=== PATIENT | female | born 1955 | race African-American/Black ===

== ENCOUNTER 2019-03-12 10:40 | Inpatient (IN) | payer MEDICARE, MEDICAID ==
[~2019-03-12] VITALS: Ht 157.5 cm; Wt 75.8 kg
[2019-03-12 11:24] LABS: BASO # 0.1 x10^3/uL (0.0-0.2); BASO % 1 % (0-3); EOS # 0.3 x10^3/uL (0.0-0.7); EOS % 5 % (0-3); HEMATOCRIT 37.9 % (36.0-47.0); HEMOGLOBIN 12.7 g/dL (12.0-15.5); LYMPH % 20 % (24-48); MEAN CORPUSCULAR HEMOGLOBIN 33 pg (25-35); MEAN CORPUSCULAR HGB CONC 34 g/dL (31-37); MEAN CORPUSCULAR VOLUME 97 fL (79-100); MONO # 0.4 x10^3/uL (0.0-1.1); MONO % 8 % (0-9); NEUT # 3.4 x10^3uL (1.8-7.7); NEUT % 66 % (31-73); PLATELET COUNT 137 x10^3/uL (140-400); RED BLOOD COUNT 3.91 x10^6/uL (3.50-5.40); RED CELL DISTRIBUTION WIDTH 14.8 % (11.5-14.5); WHITE BLOOD COUNT 5.2 x10^3/uL (4.0-11.0)
--- NOTE | 2019-03-12 11:26 | PHYS DOC ---
Adult General Chief Complaint Chief Complaint: PSYCH EVALUATION HPI HPI 63-year-old female presents for medical clearance for behavioral health admission. The patient was reported to have schizophrenia and bipolar. The patient was not being cooperative at her care facility. She was also having delusions and possibly hallucinations. She was moving around the facility with her physicians would not let anyone put anything away. She denies anything medical complaints to me. She denies pain, fever, or illness. Review of Systems Review of Systems Constitutional: Denies fever or chills [] Eyes: Denies change in visual acuity, redness, or eye pain [] HENT: Denies nasal congestion or sore throat [] Respiratory: Denies cough or shortness of breath [] Cardiovascular: No additional information not addressed in HPI [] GI: Denies abdominal pain, nausea, vomiting, bloody stools or diarrhea [] : Denies dysuria or hematuria [] Musculoskeletal: Denies back pain or joint pain [] Integument: Denies rash or skin lesions [] Neurologic: Denies headache, focal weakness or sensory changes [] Endocrine: Denies polyuria or polydipsia [] All other systems were reviewed and found to be within normal limits, except as documented in this note. Physical Exam Physical Exam Constitutional: Well developed, well nourished, no acute distress, non-toxic appearance. [] HENT: Normocephalic, atraumatic, bilateral external ears normal, oropharynx moist, no oral exudates, nose normal. [] Eyes: PERRLA, EOMI, conjunctiva normal, no discharge. [] Neck: Normal range of motion, no tenderness, supple, no stridor. [] Cardiovascular:Heart rate regular rhythm, no murmur [] Lungs & Thorax: Bilateral breath sounds clear to auscultation [] Abdomen: Bowel sounds normal, soft, no tenderness, no masses, no pulsatile masses. [] Skin: Warm, dry, no erythema, no rash. [] Back: No tenderness, no CVA tenderness. [] Extremities: No tenderness, no cyanosis, no clubbing, ROM intact, no edema. [] Neurologic: Alert and oriented X 3, normal motor function, normal sensory function, no focal deficits noted. [] Psychologic: Affect normal, mood normal. [] EKG EKG Sinus rhythm, rate 79, normal axis, no ST elevations or depressions.[] Radiology/Procedures Radiology/Procedures [] Course & Med Decision Making Course & Med Decision Making Pertinent Labs and Imaging studies reviewed. (See chart for details) The patient's labs are unremarkable. Her urinalysis is positive for leukocyte esterase, but there are also epithelials. I will not treat her for UTI. She is medically stable for behavioral health admission. [] Dragon Disclaimer Dragon Disclaimer This electronic medical record was generated, in whole or in part, using a voice recognition dictation system. Departure Departure: Impression: Primary Impression: Medical clearance for psychiatric admission Disposition: ADMITTED INPATIENT Condition: STABLE Referrals: KATHIE YOUNG (PCP) MIRIAN LUCIA DO March 12, 2019 11:26
[2019-03-12 11:35] LABS: ALBUMIN 3.3 g/dL (3.4-5.0); ALBUMIN/GLOBULIN RATIO 0.9 (1.0-1.7); CALCIUM 9.1 mg/dL (8.5-10.1); CREATININE 1.1 mg/dL (0.6-1.0); GFR 61.1; MAGNESIUM 1.8 mg/dL (1.8-2.4); POTASSIUM 3.8 mmol/L (3.5-5.1); TOTAL BILIRUBIN 0.4 mg/dL (0.2-1.0)
[2019-03-12 12:30] LABS: BILIRUBIN,URINE NEG (NEG); CLARITY,URINE CLEAR; COLOR,URINE YELLOW; GLUCOSE,URINE NEG (NEG)
[2019-03-12 12:31] LABS: BACTERIA,URINE FEW /HPF (0-FEW); HYALINE CASTS, URINE OCC /HPF; NITRITE,URINE NEG (NEG); RBC,URINE 0 /HPF (0-2); SQUAMOUS EPITHELIAL CELL,UR OCC /LPF; UROBILINOGEN,URINE 1 mg/dL (0.2 mg/dL)
--- NOTE | 2019-03-12 15:45 | EKG ---
[address] [address] Test Date: 2019-03-12 Test Time: 11:20:32 Pat Name: MAMADOU SAM Department: Room: Gender: F Media Sales Consultant: : [id number] Requested By: MIRIAN LUCIA Order Number: [id number] Reading MD: Measurements Intervals [place] Rate: 79 P: 38 GA: 172 QRS: 17 QRSD: 102 T: 38 QT: 406 QTc: 472 Interpretive Statements SINUS RHYTHM NORMAL ECG RI6.01 No previous ECG available for comparison
[2019-03-12 15:47] VITALS: BP 120/80
[2019-03-12] MEDS ORDERED: LACT10SO PO (16:05)
[2019-03-12] MEDS ORDERED: LAMO200T2 PO (16:05)
[2019-03-12] MEDS ORDERED: MIRA25TA PO (16:05)
[2019-03-12] MEDS ORDERED: RISP1TAB43 PO (16:05)
[2019-03-12] MEDS ORDERED: CLOZ100T7 PO (16:05)
[2019-03-12] MEDS ORDERED: TRAM50TA PO (16:05)
[2019-03-12] MEDS ORDERED: NAPR-677 PO (16:05)
[2019-03-12] MEDS ORDERED: ESCITALOPRAM OXA5 MG PO (16:05)
[2019-03-12] MEDS ORDERED: ACET325T9 PO (16:05)
[2019-03-12] MEDS ORDERED: MENT1ADH29 TP (16:05)
[2019-03-12] MEDS ORDERED: CHOL10003 PO (16:05)
[2019-03-12] MEDS ORDERED: [UNRECOGNIZED DRUG - CODE] TP (16:05)
[2019-03-12] MEDS ORDERED: MAGNESIUM HYDROXIDE 2,400 MG/30 ML ORAL.SUSP. PO PRN (16:15)
--- NOTE | 2019-03-12 18:35 | HP ---
ADMIT DATE: 03/12/2019 PSYCHIATRIC ADMISSION HISTORY/EVALUATION This note covers elements not covered in my initial note 03/12/2019. I met with the patient in the evening of 03/12/2019. IDENTIFYING DATA: The patient is a 63-year-old -English female referred to us from [facility] by Dr. Ryder Cooley, her primary care physician on account of unmanageable behaviors. Reportedly, she has been drinking multiple cups of fluids, has been hyperverbal, manic, aggressive, having mood swings, putting herself on the floor. She has been paranoid, thinks she is being stolen from and carries all her belongings with her. She has failed outpatient psychiatric interventions and referred for inpatient psychiatric stabilization. CHIEF COMPLAINT: "When can I go back." The patient is being admitted by the public red hat open stack administrator, who is her guardian. HISTORY OF PRESENT ILLNESS: The patient has a long history of schizoaffective disorder, bipolar type. She has been residing at the [facility]. I have followed her from a psychiatric standpoint. Over the last several days, she has been having increased agitation, psychosis, paranoia, mood swings and aggression as noted in addition to putting herself on the floor. No active suicidal or homicidal ideation. PAST PSYCHIATRIC HISTORY: As above. MEDICAL HISTORY: Positive for chronic kidney disease, anemia, GERD, chronic constipation, history of seizure disorder, hyperlipidemia, borderline personality disorder. DIET: Regular. CURRENT PSYCHOTROPICS: The patient is on Lamictal 200 mg daily for seizure disorder and for her schizoaffective disorder, clozapine 350 mg p.o. at bedtime and we will follow CBC, ANC weekly on this and she is on Lexapro 5 mg a day. FAMILY HISTORY: Noncontributory. SOCIAL HISTORY: No history of alcohol, drug abuse, physical, sexual or elder abuse. She is not known to be a perpetrator. REACTION TO HOSPITALIZATION: The patient accepting of it. ASSETS: Supportive living at the nursing homes, support from the public red hat open stack administrator. MENTAL STATUS EXAMINATION: The patient was seen individually evening of 03/12/2019. She readily recognized me by the first question was when she returned to the halfway. Speech is coherent, rapid at times. Abstraction fair, computation impaired, language function intact, attention span short. Mood and affect remain somewhat anxious, labile. She does appear paranoid, suspicious. LABORATORY DATA: Reviewed. IMPRESSION: Schizoaffective disorder, bipolar type, mixed with psychotic features; anxiety disorder, unspecified; impulse control disorder, unspecified; seizure disorder. Rest diagnoses as noted above. PLAN: Admit to geropsychiatry unit at [facility]. I will see the patient daily individually from a psychiatric standpoint. Continue the patient on her current psychotropics. Follow labs, CBC, ANC, and the clozapine. Consider Depakote as a mood stabilizer. We will make further decisions on psychotropics post baseline assessment. MAN Marek SHELL MD DR: JESSEE/umer JOB#: [id number] / [id number]
[2019-03-12] MEDS ORDERED: traMADol 50 MG TABLET PO PRN (20:45)
[2019-03-12] MEDS ORDERED: ACETAMINOPHEN 325 MG TABLET PO PRN (20:45)
[2019-03-12] MEDS: LACTULOSE 20 GM/30 ML SOLUTION. PO SCH (20:52)
[2019-03-12] MEDS ORDERED: METHYL SALICYLATE/MENTHOL TOPICAL OINTMENT 29GM TUBE. TP PRN (21:00)
[2019-03-12] MEDS ORDERED: MINERAL OIL/PETROLATUM TOPICAL CREAM 113GM JAR. TP PRN (21:00)
[2019-03-12] MEDS: cloZAPine 100 MG TABLET PO SCH (21:05)
[2019-03-12] MEDS: NAPROXEN 250 MG TABLET PO SCH (21:05)
[2019-03-12] MEDS: risperiDONE 1 MG TABLET. PO SCH (21:05)
--- NOTE | 2019-03-12 22:26 | PDOC ---
Exam Note: Sami Note: Please also refer to the separate dictated note~for this date of service dictated separately. Discussed the patient with Nursing staff reviewed the chart.~Reviewed interim history and current functioning. Reviewed vital signs,~Labs/ Radiology~and current medications noted below. Continue current treatment with the changes noted in the dictated addendum note Assessment: Vital Signs: Vital Signs Date Time Temp Pulse Resp B/P (MAP) Pulse Ox O2 Delivery O2 Flow Rate FiO2 03/12/19 15:47 97.7 97 20 120/80 (93) 98 Room Air Labs: Laboratory Tests Test 03/12/19 11:13 03/12/19 11:30 03/12/19 20:55 White Blood Count 5.2 x10^3/uL (4.0-11.0) Red Blood Count 3.91 x10^6/uL (3.50-5.40) Hemoglobin 12.7 g/dL (12.0-15.5) Hematocrit 37.9 % (36.0-47.0) Mean Corpuscular Volume 97 fL (79-100) Mean Corpuscular Hemoglobin 33 pg (25-35) Mean Corpuscular Hemoglobin Concent 34 g/dL (31-37) Red Cell Distribution Width 14.8 % (11.5-14.5) H Platelet Count 137 x10^3/uL (140-400) L Neutrophils (%) (Auto) 66 % (31-73) Lymphocytes (%) (Auto) 20 % (24-48) L Monocytes (%) (Auto) 8 % (0-9) Eosinophils (%) (Auto) 5 % (0-3) H Basophils (%) (Auto) 1 % (0-3) Neutrophils # (Auto) 3.4 x10^3uL (1.8-7.7) Lymphocytes # (Auto) 1.0 x10^3/uL (1.0-4.8) Monocytes # (Auto) 0.4 x10^3/uL (0.0-1.1) Eosinophils # (Auto) 0.3 x10^3/uL (0.0-0.7) Basophils # (Auto) 0.1 x10^3/uL (0.0-0.2) Sodium Level 141 mmol/L (136-145) Potassium Level 3.8 mmol/L (3.5-5.1) Chloride Level 106 mmol/L (98-107) Carbon Dioxide Level 26 mmol/L (21-32) Anion Gap 9 (6-14) Blood Urea Nitrogen 17 mg/dL (7-20) Creatinine 1.1 mg/dL (0.6-1.0) H Estimated GFR (Cockcroft-Gault) 61.1 BUN/Creatinine Ratio 15 (6-20) Glucose Level 118 mg/dL (70-99) H Calcium Level 9.1 mg/dL (8.5-10.1) Magnesium Level 1.8 mg/dL (1.8-2.4) Iron Level 72 ug/dL (50-170) Total Iron Binding Capacity 288 ug/dL (250-450) Iron Saturation 25 % (15-34) Total Bilirubin 0.4 mg/dL (0.2-1.0) Aspartate Amino Transferase (AST) 40 U/L (15-37) H Alanine Aminotransferase (ALT) 51 U/L (14-59) Alkaline Phosphatase 168 U/L (46-116) H Total Protein 7.0 g/dL (6.4-8.2) Albumin 3.3 g/dL (3.4-5.0) L Albumin/Globulin Ratio 0.9 (1.0-1.7) L Urine Collection Type Unknown Urine Color Yellow Urine Clarity Clear Urine pH 6.5 Urine Specific [place] 1.015 Urine Protein Neg (NEG-TRACE) Urine Glucose (UA) Neg mg/dL (NEG) Urine Ketones (Stick) Neg mg/dL (NEG) Urine Blood Neg (NEG) Urine Nitrite Neg (NEG) Urine Bilirubin Neg (NEG) Urine Urobilinogen Dipstick 1 mg/dL (0.2 mg/dL) Urine Leukocyte Esterase Trace (NEG) Urine RBC 0 /HPF (0-2) Urine WBC 1-4 /HPF (0-4) Urine Squamous Epithelial Cells Occ /LPF Urine Bacteria Few /HPF (0-FEW) Urine Hyaline Casts Occ /HPF Ammonia 25 mcmol/L (11-34) Current Medications: Meds: Current Medications Al Hydroxide/Mg Hydroxide (Mylanta Plus Xs) 15 ml PRN AFTMEALHC PRN PO DYSPEPSIA; Start 03/12/19 at 16:15 Magnesium Hydroxide (Milk Of Magnesia) 2,400 mg PRN QHS PRN PO CONSTIPATION; Start 03/12/19 at 16:15 Nicotine (Nicoderm Cq 21mg) 1 patch DAILY TD ; Start 03/13/19 at 09:00 Clozapine (Clozaril) 350 mg QHS PO Last administered on 03/12/19at 21:05; Start 03/12/19 at 21:00 Citalopram Hydrobromide (CeleXA) 10 mg DAILY PO ; Start 03/13/19 at 09:00 Risperidone (RisperDAL) 1 mg BID PO Last administered on 03/12/19at 21:05; Start 03/12/19 at 21:00 Acetaminophen (Tylenol) 650 mg PRN Q4HRS PRN PO PAIN / TEMP; Start 03/12/19 at 20:45 Vitamin D (Vitamin D3) 2,000 unit DAILY PO ; Start 03/13/19 at 09:00 Mirabegron (Myrbetriq) 25 mg DAILY PO ; Start 03/13/19 at 09:00 Tramadol HCl (Ultram) 50 mg PRN Q8HRS PRN PO PAIN; Start 03/12/19 at 20:45 Lactulose (Lactulose) 10 gm QID PO ; Start 03/12/19 at 21:00 Lamotrigine (LaMICtal) 200 mg DAILY PO ; Start 03/13/19 at 09:00 Multi-Ingredient Ointment (Analgesic [place]) 1 marcos PRN Q6HRS PRN TP MUSCLE PAIN; Start 03/12/19 at 21:00 Naproxen (Naprosyn) 250 mg BID PO Last administered on 03/12/19at 21:05; Start 03/12/19 at 21:00 Multi-Ingred Cream/Lotion/Oil/ Oint (Hydrocerin) 1 marcos PRN DAILY PRN TP DRYNESS OF NARES; Start 03/12/19 at 21:00 Active Scripts Active Reported Risperdal (Risperidone) 1 Mg Tablet 1 Mg PO BID Naproxen Sodium 550 Mg Tablet 220 Mg PO BID Clozapine 100 Mg Tablet 350 Mg PO QHS Escitalopram Oxalate 5 Mg Tablet 5 Mg PO DAILY Vitamin D3 (Cholecalciferol (Vitamin D3)) 1,000 Unit Tablet 2,000 Unit PO DAILY Lamotrigine 200 Mg Tablet 200 Mg PO DAILY Myrbetriq (Mirabegron) 25 Mg Tab.er.24h 25 Mg PO DAILY Lactulose 10 Gm/15 Ml Solution 10 Gm PO QID Petroleum Jelly Lip Treatment (Petrolatum,White) 9.9 Gm Jelly..g. 9.9 Gm TP PRN PRN [place] Ultra Strength (Menthol) 1 Each Adh..patch 1 Each TP Q6HRS Tramadol Hcl (Tramadol HCl) 50 Mg Tablet 50 Mg PO PRN Q8HRS PRN Tylenol (Acetaminophen) 325 Mg Tablet 650 Mg PO PRN Q4HRS PRN I have reviewed the current psychotropics carefully including drug interactions. Risk benefit ratio favors no change other than as noted in my dictated progress note. Diagnosis: Problems: (1) Medical clearance for psychiatric admission (2) Anxiety disorder (3) Impulse control disorder (4) Schizoaffective disorder, chronic condition with acute exacerbation (5) Psychosis, atypical MARIALUISA SHELL MD March 12, 2019 22:26
[2019-03-13 03:08] LABS: THYROXINE 8.7 ug/dL (4.5-12.0)
[2019-03-13 05:53] VITALS: BP 133/85
[2019-03-13] MEDS ORDERED: lamoTRIgine 100 MG TABLET. PO SCH (09:00)
[2019-03-13] MEDS: CITALOPRAM 10 MG TABLET. PO SCH (09:18)
[2019-03-13] MEDS: LACTULOSE 20 GM/30 ML SOLUTION. PO SCH ×4 (09:19→19:38)
[2019-03-13] MEDS: MIRABEGRON 25 MG TAB.ER.24H PO SCH (09:20)
[2019-03-13] MEDS: NAPROXEN 250 MG TABLET PO SCH ×2 (09:21→19:37)
[2019-03-13] MEDS: risperiDONE 1 MG TABLET. PO SCH ×2 (09:22→19:37)
[2019-03-13] MEDS: CHOLECALCIFEROL (VITAMIN D3) 1,000 UNIT TABLET PO SCH (09:23)
[2019-03-13] MEDS: NICOTINE 21MG PATCH. TD SCH (09:23)
[2019-03-13 10:57] LABS: THYROID STIM HORMONE (TSH) 5.065 uIU/mL (0.358-3.740)
[2019-03-13 12:07] LABS: HEMOGLOBIN A1C 5.6 % (4.8-5.6)
[2019-03-13 16:21] VITALS: BP 168/97
[2019-03-13] MEDS: cloZAPine 100 MG TABLET PO SCH (19:37)
--- NOTE | 2019-03-13 22:36 | PDOC ---
Exam Note: Sami Note: Please also refer to the separate dictated note~for this date of service dictated separately.~Patient seen individually. Discussed the patient with Nursing staff reviewed the chart.~Reviewed interim history and current functioning. Reviewed vital signs,~Labs/ Radiology~and current medications noted below. Continue current treatment with the changes noted in the dictated addendum note Assessment: Vital Signs: Vital Signs Date Time Temp Pulse Resp B/P (MAP) Pulse Ox O2 Delivery O2 Flow Rate FiO2 03/13/19 16:21 97.8 81 19 168/97 (120) 100 Room Air I&O Intake and Output 03/13/19 06:59 Intake Total 540 ml Balance 540 ml Intake Oral 540 ml Current Medications: Meds: Current Medications Al Hydroxide/Mg Hydroxide (Mylanta Plus Xs) 15 ml PRN AFTMEALHC PRN PO DYSPEPSIA; Start 03/12/19 at 16:15 Magnesium Hydroxide (Milk Of Magnesia) 2,400 mg PRN QHS PRN PO CONSTIPATION; Start 03/12/19 at 16:15 Nicotine (Nicoderm Cq 21mg) 1 patch DAILY TD Last administered on 03/13/19at 09:23; Start 03/13/19 at 09:00 Clozapine (Clozaril) 350 mg QHS PO Last administered on 03/13/19at 19:37; Start 03/12/19 at 21:00 Citalopram Hydrobromide (CeleXA) 10 mg DAILY PO Last administered on 03/13/19at 09:18; Start 03/13/19 at 09:00 Risperidone (RisperDAL) 1 mg BID PO Last administered on 03/13/19at 19:37; Start 03/12/19 at 21:00 Acetaminophen (Tylenol) 650 mg PRN Q4HRS PRN PO PAIN / TEMP; Start 03/12/19 at 20:45 Vitamin D (Vitamin D3) 2,000 unit DAILY PO Last administered on 03/13/19at 09:23; Start 03/13/19 at 09:00 Mirabegron (Myrbetriq) 25 mg DAILY PO Last administered on 03/13/19at 09:20; Start 03/13/19 at 09:00 Tramadol HCl (Ultram) 50 mg PRN Q8HRS PRN PO PAIN; Start 03/12/19 at 20:45 Lactulose (Lactulose) 10 gm QID PO Last administered on 03/13/19at 19:38; Start 03/12/19 at 21:00 Lamotrigine (LaMICtal) 200 mg DAILY PO Last administered on 03/13/19at 09:20; Start 03/13/19 at 09:00; Stop 03/13/19 at 17:33; Status DC Multi-Ingredient Ointment (Analgesic [place]) 1 marcos PRN Q6HRS PRN TP MUSCLE PAIN; Start 03/12/19 at 21:00 Naproxen (Naprosyn) 250 mg BID PO Last administered on 03/13/19at 19:37; Start 03/12/19 at 21:00 Multi-Ingred Cream/Lotion/Oil/ Oint (Hydrocerin) 1 marcos PRN DAILY PRN TP DRYNESS OF NARES; Start 03/12/19 at 21:00 Lamotrigine (LaMICtal) 250 mg DAILY PO ; Start 03/14/19 at 09:00 Active Scripts Active Reported Risperdal (Risperidone) 1 Mg Tablet 1 Mg PO BID Naproxen Sodium 550 Mg Tablet 220 Mg PO BID Clozapine 100 Mg Tablet 350 Mg PO QHS Escitalopram Oxalate 5 Mg Tablet 5 Mg PO DAILY Vitamin D3 (Cholecalciferol (Vitamin D3)) 1,000 Unit Tablet 2,000 Unit PO DAILY Lamotrigine 200 Mg Tablet 200 Mg PO DAILY Myrbetriq (Mirabegron) 25 Mg Tab.er.24h 25 Mg PO DAILY Lactulose 10 Gm/15 Ml Solution 10 Gm PO QID Petroleum Jelly Lip Treatment (Petrolatum,White) 9.9 Gm Jelly..g. 9.9 Gm TP PRN PRN [place] Ultra Strength (Menthol) 1 Each Adh..patch 1 Each TP Q6HRS Tramadol Hcl (Tramadol HCl) 50 Mg Tablet 50 Mg PO PRN Q8HRS PRN Tylenol (Acetaminophen) 325 Mg Tablet 650 Mg PO PRN Q4HRS PRN I have reviewed the current psychotropics carefully including drug interactions. Risk benefit ratio favors no change other than as noted in my dictated progress note. Diagnosis: Problems: (1) Anxiety disorder (2) Impulse control disorder (3) Schizoaffective disorder, chronic condition with acute exacerbation (4) Psychosis, atypical MARIALUISA SHELL MD March 13, 2019 22:36
[2019-03-14 05:58] VITALS: BP 146/98
--- NOTE | 2019-03-14 06:13 | CONS ---
DATE OF CONSULTATION: 03/13/2019 REASON FOR CONSULTATION: Medical management. HISTORY OF PRESENT ILLNESS: The patient is a 63-year-old -M[place] female patient, a resident at [facility], who apparently was transferred or referred [facility] on account of being verbally aggressive, manic with marked mood swings, putting herself on the floor, paranoid, thinks belongings are being stolen, drinking multiple cups of fluids, all this in a background of schizoaffective, bipolar type, mixed. PAST MEDICAL HISTORY: Medically, she has multiple medical problems including hypertension, anemia, chronic back pain, chronic kidney disease stage 3. She is also known to have seasonal allergic rhinitis, gastroesophageal reflux disease, constipation, and insomnia. PAST SURGICAL HISTORY: Unremarkable. ALLERGIES: She is allergic to THIORIDAZINE. MEDICATIONS: She is currently on following medications: She is on naproxen 220 mg twice a day, tramadol 50 mg every 8 hours, Tylenol 650 mg every 4 hours as needed, lamotrigine 200 mg daily, escitalopram oxalate 5 mg once a day, clozapine 350 mg p.o. at bedtime, risperidone 1 mg twice a day, lactulose 10 grams in 15 mL solution 4 times a day. She is on BenGay ultra strength applied topically every 6 hours to the right shoulder, Myrbetriq 25 mg daily for overactive bladder, cholecalciferol vitamin D3 2000 International Units once a day. She has beta-lactam applied topically to the dryness of the nares. FAMILY HISTORY: Noncontributory. SOCIAL HISTORY: She apparently is a resident at [facility]. She apparently is not known to drink alcohol or use drugs. PHYSICAL EXAMINATION: GENERAL: When I saw her this afternoon, she was laying almost flat in the bed, in no apparent respiratory distress. She appeared slightly pale, but no jaundice, cyanosis, or thyromegaly. No jugular venous distention. No limb edema. VITAL SIGNS: Her heart rate was 81, blood pressure was 168/97, temperature was 97.8, respiratory rate was 19, and oxygen saturation was 100% on room air. HEAD, EYES, EARS, NOSE, AND THROAT: Showed normocephalic, atraumatic. NECK: Supple. HEART: Showed normal first and second heart sounds. No gallop, rub or murmur. CHEST: Clear to auscultation. No crepitation or rhonchi. ABDOMEN: Distended, soft, nontender. NEUROLOGIC: When she saw us first, she sees double, which can be sometimes a side effect of one of the anti-seizure medications, although I do not think she is on Dilantin, which characteristically can cause that. However, all her cranial nerves were grossly intact. She moves extremities without difficulty. She did seem to have difficulty getting up from lying position to sit on the edge of the bed and also standing from the sitting position, although eventually she managed to stand and walk with a walker without difficulty. LABORATORY DATA: Her lab work showed a serum sodium of 141, potassium 3.8, chloride 106, bicarbonate 26, anion gap of 9, BUN 17, creatinine was 1.1, estimated GFR was 61 mL per minute. Her glucose was 118. Her calcium was 9.1. Magnesium was 1.8. Serum iron, TIBC and iron saturation were all low consistent with anemia of chronic disease. Her total bilirubin and ALT are normal. AST and alkaline phosphatase slightly elevated. Total protein was 7, albumin was 3.3. Her hemoglobin A1c was 5.6%. Her ammonia level was only 25 micromole per liter. Her triglycerides were 225. Total cholesterol 193, LDL cholesterol 186, VLDL was 24, and HDL cholesterol was 83 and the ratio was 2. Her 25-hydroxy vitamin D was 33.5, which was well within normal range. Her TSH was slightly elevated; however, her total T4 and total T3 were normal, indicating that she has compensated hypothyroidism. Her antithrombin 3 inhibitor antibody is nonreactive. Her urinalysis essentially unremarkable. It was negative for protein, glucose, ketones, blood, nitrite, and leukocyte esterase. IMPRESSION: In summary, this is a 63-year-old -M[place] female patient who was referred from [facility] by her primary care physician, Dr. Ryder Cooley on account of unmanageable behavior. Reportedly she has been drinking multiple cups of fluid, has been hyperverbal, manic, aggressive, having mood swings, putting herself on the floor. She apparently has been paranoid. She has failed outpatient psychiatric intervention and was referred for an inpatient psychiatric stabilization. Medically, she is known to have chronic kidney disease, anemia, gastroesophageal reflux disease, chronic constipation, history of seizures, hyperlipidemia. Her vital signs are all within acceptable range, although her blood pressure seems to be labile. All her lab works seem to be within acceptable range. My recommendation is to continue with all her current medications. I will follow all her labs that are still pending at the time of this dictation and make any necessary recommendations. Thank you Dr. Guo. AUSTYN JANE MD DR: CRISTINA/umer JOB#: [id number] / [id number]
[2019-03-14] MEDS: LACTULOSE 20 GM/30 ML SOLUTION. PO SCH ×4 (08:50→19:42)
[2019-03-14] MEDS: risperiDONE 1 MG TABLET. PO SCH ×2 (08:50→19:42)
[2019-03-14] MEDS: CITALOPRAM 10 MG TABLET. PO SCH (08:50)
[2019-03-14] MEDS: NAPROXEN 250 MG TABLET PO SCH ×2 (08:50→19:42)
[2019-03-14] MEDS: NICOTINE 21MG PATCH. TD SCH (08:51)
[2019-03-14] MEDS: CHOLECALCIFEROL (VITAMIN D3) 1,000 UNIT TABLET PO SCH (08:51)
[2019-03-14] MEDS: lamoTRIgine 100 MG TABLET. PO SCH (08:52)
[2019-03-14] MEDS: MIRABEGRON 25 MG TAB.ER.24H PO SCH (08:53)
[2019-03-14 16:54] VITALS: BP_SYST 101; BP_SYST 136; BP_DIAS 73; BP_DIAS 92
[2019-03-14] MEDS: cloZAPine 100 MG TABLET PO SCH (19:42)
--- NOTE | 2019-03-14 22:35 | PDOC ---
Exam Note: Sami Note: Please also refer to the separate dictated note~for this date of service dictated separately.~Patient seen individually. Discussed the patient with Nursing staff reviewed the chart.~Reviewed interim history and current functioning. Reviewed vital signs,~Labs/ Radiology~and current medications noted below. Continue current treatment with the changes noted in the dictated addendum note Assessment: Vital Signs: Vital Signs Date Time Temp Pulse Resp B/P (MAP) Pulse Ox O2 Delivery O2 Flow Rate FiO2 03/14/19 16:54 98.2 90 16 101/73 (82) 100 03/13/19 16:21 Room Air I&O Intake and Output 03/14/19 06:59 Intake Total 600 ml Balance 600 ml Intake Oral 600 ml Current Medications: Meds: Current Medications Al Hydroxide/Mg Hydroxide (Mylanta Plus Xs) 15 ml PRN AFTMEALHC PRN PO DYSPEP YANNICK; Start 03/12/19 at 16:15 Magnesium Hydroxide (Milk Of Magnesia) 2,400 mg PRN QHS PRN PO CONSTIPATION; Start 03/12/19 at 16:15 Nicotine (Nicoderm Cq 21mg) 1 patch DAILY TD Last administered on 03/14/19 08:51; Start 03/13/19 at 09:00 Clozapine (Clozaril) 350 mg QHS PO Last administered on 03/14/19 19:42; Start 03/12/19 at 21:00 Citalopram Hydrobromide (CeleXA) 10 mg DAILY PO Last administered on 03/14/19 08:50; Start 03/13/19 at 09:00 Risperidone (RisperDAL) 1 mg BID PO Last administered on 03/14/19 19:42; Start 03/12/19 at 21:00 Acetaminophen (Tylenol) 650 mg PRN Q4HRS PRN PO PAIN / TEMP; Start 03/12/19 at 20:45 Vitamin D (Vitamin D3) 2,000 unit DAILY PO Last administered on 03/14/19 08:51; Start 03/13/19 at 09:00 Mirabegron (Myrbetriq) 25 mg DAILY PO Last administered on 03/14/19 08:53; Start 03/13/19 at 09:00 Tramadol HCl (Ultram) 50 mg PRN Q8HRS PRN PO PAIN; Start 03/12/19 at 20:45 Lactulose (Lactulose) 10 gm QID PO Last administered on 03/14/19at 19:42; Start 03/12/19 at 21:00 Lamotrigine (LaMICtal) 200 mg DAILY PO Last administered on 03/13/19at 09:20; Start 03/13/19 at 09:00; Stop 03/13/19 at 17:33; Status DC Multi-Ingredient Ointment (Analgesic [place]) 1 marcos PRN Q6HRS PRN TP MUSCLE PAIN; Start 03/12/19 at 21:00 Naproxen (Naprosyn) 250 mg BID PO Last administered on 03/14/19at 19:42; Start 03/12/19 at 21:00 Multi-Ingred Cream/Lotion/Oil/ Oint (Hydrocerin) 1 marcos PRN DAILY PRN TP DRYNESS OF NARES; Start 03/12/19 at 21:00 Lamotrigine (LaMICtal) 250 mg DAILY PO Last administered on 03/14/19at 08:52; Start 03/14/19 at 09:00 Active Scripts Active Reported Risperdal (Risperidone) 1 Mg Tablet 1 Mg PO BID Naproxen Sodium 550 Mg Tablet 220 Mg PO BID Clozapine 100 Mg Tablet 350 Mg PO QHS Escitalopram Oxalate 5 Mg Tablet 5 Mg PO DAILY Vitamin D3 (Cholecalciferol (Vitamin D3)) 1,000 Unit Tablet 2,000 Unit PO DAILY Lamotrigine 200 Mg Tablet 200 Mg PO DAILY Myrbetriq (Mirabegron) 25 Mg Tab.er.24h 25 Mg PO DAILY Lactulose 10 Gm/15 Ml Solution 10 Gm PO QID Petroleum Jelly Lip Treatment (Petrolatum,White) 9.9 Gm Jelly..g. 9.9 Gm TP PRN PRN Bengay Ultra Strength (Menthol) 1 Each Adh..patch 1 Each TP Q6HRS Tramadol Hcl (Tramadol HCl) 50 Mg Tablet 50 Mg PO PRN Q8HRS PRN Tylenol (Acetaminophen) 325 Mg Tablet 650 Mg PO PRN Q4HRS PRN I have reviewed the current psychotropics carefully including drug interactions. Risk benefit ratio favors no change other than as noted in my dictated progress note. Diagnosis: Problems: (1) Medical clearance for psychiatric admission (2) Anxiety disorder (3) Impulse control disorder (4) Schizoaffective disorder, chronic condition with acute exacerbation (5) Psychosis, atypical MARIALUISA SHELL MD Mar 14, 2019 22:34
[2019-03-15 06:19] VITALS: BP 138/87
[2019-03-15] MEDS: CITALOPRAM 10 MG TABLET. PO SCH (08:52)
[2019-03-15] MEDS: LACTULOSE 20 GM/30 ML SOLUTION. PO SCH ×4 (08:52→21:31)
[2019-03-15] MEDS: CHOLECALCIFEROL (VITAMIN D3) 1,000 UNIT TABLET PO SCH (08:53)
[2019-03-15] MEDS: lamoTRIgine 100 MG TABLET. PO SCH (08:53)
[2019-03-15] MEDS: MIRABEGRON 25 MG TAB.ER.24H PO SCH (08:54)
[2019-03-15] MEDS: NAPROXEN 250 MG TABLET PO SCH ×2 (08:54→21:31)
[2019-03-15] MEDS: NICOTINE 21MG PATCH. TD SCH (08:54)
[2019-03-15] MEDS: risperiDONE 1 MG TABLET. PO SCH ×2 (08:54→21:31)
[2019-03-15 16:16] VITALS: BP 153/88
[2019-03-15] MEDS: cloZAPine 100 MG TABLET PO SCH (21:31)
--- NOTE | 2019-03-15 22:38 | PDOC ---
Exam Note: Sami Note: Please also refer to the separate dictated note~for this date of service dictated separately.~Patient seen individually. Discussed the patient with Nursing staff reviewed the chart.~Reviewed interim history and current functioning. Reviewed vital signs,~Labs/ Radiology~and current medications noted below. Continue current treatment with the changes noted in the dictated addendum note Assessment: Vital Signs: Vital Signs Date Time Temp Pulse Resp B/P (MAP) Pulse Ox O2 Delivery O2 Flow Rate FiO2 03/15/19 16:16 97.4 78 18 153/88 (109) 100 03/13/19 16:21 Room Air I&O Intake and Output 03/15/19 06:59 Intake Total 960 ml Balance 960 ml Intake Oral 960 ml Current Medications: Meds: Current Medications Al Hydroxide/Mg Hydroxide (Mylanta Plus Xs) 15 ml PRN AFTMEALHC PRN PO DYSPE PSIA; Start 03/12/19 at 16:15 Magnesium Hydroxide (Milk Of Magnesia) 2,400 mg PRN QHS PRN PO CONSTIPATION; Start 03/12/19 at 16:15 Nicotine (Nicoderm Cq 21mg) 1 patch DAILY TD Last administered on 03/15/19 08:54; Start 03/13/19 at 09:00 Clozapine (Clozaril) 350 mg QHS PO Last administered on 03/15/19 21:31; Start 03/12/19 at 21:00 Citalopram Hydrobromide (CeleXA) 10 mg DAILY PO Last administered on 03/15/19 08:52; Start 03/13/19 at 09:00 Risperidone (RisperDAL) 1 mg BID PO Last administered on 03/15/19 21:31; Start 03/12/19 at 21:00 Acetaminophen (Tylenol) 650 mg PRN Q4HRS PRN PO PAIN / TEMP; Start 03/12/19 at 20:45 Vitamin D (Vitamin D3) 2,000 unit DAILY PO Last administered on 03/15/19 08:53; Start 03/13/19 at 09:00 Mirabegron (Myrbetriq) 25 mg DAILY PO Last administered on 03/15/19 08:54; Start 03/13/19 at 09:00 Tramadol HCl (Ultram) 50 mg PRN Q8HRS PRN PO PAIN; Start 03/12/19 at 20:45 Lactulose (Lactulose) 10 gm QID PO Last administered on 03/15/19at 21:31; Start 03/12/19 at 21:00 Lamotrigine (LaMICtal) 200 mg DAILY PO Last administered on 03/13/19at 09:20; Start 03/13/19 at 09:00; Stop 03/13/19 at 17:33; Status DC Multi-Ingredient Ointment (Analgesic [place]) 1 marcos PRN Q6HRS PRN TP MUSCLE PAIN; Start 03/12/19 at 21:00 Naproxen (Naprosyn) 250 mg BID PO Last administered on 03/15/19at 21:31; Start 03/12/19 at 21:00 Multi-Ingred Cream/Lotion/Oil/ Oint (Hydrocerin) 1 marcos PRN DAILY PRN TP DRYNESS OF NARES; Start 03/12/19 at 21:00 Lamotrigine (LaMICtal) 250 mg DAILY PO Last administered on 03/15/19at 08:53; Start 03/14/19 at 09:00 Active Scripts Active Reported Risperdal (Risperidone) 1 Mg Tablet 1 Mg PO BID Naproxen Sodium 550 Mg Tablet 220 Mg PO BID Clozapine 100 Mg Tablet 350 Mg PO QHS Escitalopram Oxalate 5 Mg Tablet 5 Mg PO DAILY Vitamin D3 (Cholecalciferol (Vitamin D3)) 1,000 Unit Tablet 2,000 Unit PO DAILY Lamotrigine 200 Mg Tablet 200 Mg PO DAILY Myrbetriq (Mirabegron) 25 Mg Tab.er.24h 25 Mg PO DAILY Lactulose 10 Gm/15 Ml Solution 10 Gm PO QID Petroleum Jelly Lip Treatment (Petrolatum,White) 9.9 Gm Jelly..g. 9.9 Gm TP PRN PRN [place] Ultra Strength (Menthol) 1 Each Adh..patch 1 Each TP Q6HRS Tramadol Hcl (Tramadol HCl) 50 Mg Tablet 50 Mg PO PRN Q8HRS PRN Tylenol (Acetaminophen) 325 Mg Tablet 650 Mg PO PRN Q4HRS PRN I have reviewed the current psychotropics carefully including drug interactions. Risk benefit ratio favors no change other than as noted in my dictated progress note. Diagnosis: Problems: (1) Medical clearance for psychiatric admission (2) Anxiety disorder (3) Impulse control disorder (4) Schizoaffective disorder, chronic condition with acute exacerbation (5) Psychosis, atypical MARIALUISA SHELL MD Mar 15, 2019 22:38
[2019-03-16 06:22] VITALS: BP 157/97
--- NOTE | 2019-03-16 06:25 | PN ---
DATE: 03/13/2019 PSYCHIATRIC PROGRESS NOTE This late entry 03/13/2019 covers elements not covered in my initial note. SUBJECTIVE: I met with the patient in the evening. The patient slept 6 hours previous night, did well at night. In the morning, put herself on the floor. Nursing staff redirected her and she made a statement "I will not put myself on the floor again." CBC, absolute neutrophil count unremarkable with ANC at 3432 and she is on the Clozaril. REVIEW OF SYSTEMS: No CV, , pulmonary, eye, ENT system symptoms on review. She has vague somatic symptoms. MENTAL STATUS EXAM: Oriented to herself and situation. Speech has some latency, coherent. Abstraction fair, computation impaired, language function intact. Mood and affect still anxious, somewhat labile, slightly paranoid. LABORATORY DATA: Reviewed. IMPRESSION: Schizoaffective disorder, bipolar type, mixed with psychotic features, in partial remission; anxiety disorder, unspecified. PLAN: Increase Clozaril gradually, but for now we will maintain 350 mg at bedtime, increase lamotrigine from 200 mg a day to 250 mg a day for her mood disorder. Continue rest unchanged, Lexapro 5 mg a day. MARIALUISA SHELL MD DR: JESSEE/umer JOB#: [id number] / [id number]
--- NOTE | 2019-03-16 07:13 | PN ---
DATE: 03/14/2019 PSYCHIATRIC PROGRESS NOTE This late entry 03/14/2019 covers elements not covered in my initial note. SUBJECTIVE: I met with the patient in the evening at length in her room. The patient slept 8 hours previous night. She has been calm, compliant, cooperative with meds and assessment. Complains of being tired, rested during lunch, but had dinner. She remains somewhat paranoid, anxious. REVIEW OF SYSTEMS: Complains of tiredness. No CV, , pulmonary, eye, ENT system symptoms on review. MENTAL STATUS EXAM: Oriented to herself and situation. Speech is coherent, abstraction fair, computation impaired, language function intact. Mood and affect remain somewhat anxious, labile. LABORATORY DATA: Reviewed. IMPRESSION: Schizoaffective disorder, bipolar type, mixed with psychotic features. Rest unchanged. PLAN: Continue current psychotropics, Lexapro, clozapine. Lamotrigine was increased. Rest unchanged. MAN Marek SHELL MD DR: JESSEE/umer JOB#: [id number] / [id number]
[2019-03-16 07:26] LABS: BASO % 1 % (0-3); EOS # 0.3 x10^3/uL (0.0-0.7); EOS % 5 % (0-3); HEMATOCRIT 38.1 % (36.0-47.0); HEMOGLOBIN 12.8 g/dL (12.0-15.5); LYMPH # 1.5 x10^3/uL (1.0-4.8); LYMPH % 25 % (24-48); MEAN CORPUSCULAR HEMOGLOBIN 33 pg (25-35); MEAN CORPUSCULAR HGB CONC 34 g/dL (31-37); MEAN CORPUSCULAR VOLUME 97 fL (79-100); MONO # 0.5 x10^3/uL (0.0-1.1); MONO % 8 % (0-9); NEUT # 3.6 x10^3uL (1.8-7.7); NEUT % 61 % (31-73); PLATELET COUNT 139 x10^3/uL (140-400); RED BLOOD COUNT 3.92 x10^6/uL (3.50-5.40); RED CELL DISTRIBUTION WIDTH 14.6 % (11.5-14.5); WHITE BLOOD COUNT 5.8 x10^3/uL (4.0-11.0)
[2019-03-16] MEDS: CITALOPRAM 10 MG TABLET. PO SCH (07:32)
[2019-03-16] MEDS: MIRABEGRON 25 MG TAB.ER.24H PO SCH (07:33)
[2019-03-16] MEDS: lamoTRIgine 100 MG TABLET. PO SCH (07:33)
[2019-03-16] MEDS: LACTULOSE 20 GM/30 ML SOLUTION. PO SCH ×4 (07:33→20:10)
[2019-03-16] MEDS: NICOTINE 21MG PATCH. TD SCH (07:34)
[2019-03-16] MEDS: risperiDONE 1 MG TABLET. PO SCH ×2 (07:34→20:11)
[2019-03-16] MEDS: NAPROXEN 250 MG TABLET PO SCH ×2 (07:34→20:10)
[2019-03-16] MEDS: CHOLECALCIFEROL (VITAMIN D3) 1,000 UNIT TABLET PO SCH (07:34)
[2019-03-16 07:44] LABS: ALBUMIN 3.3 g/dL (3.4-5.0); ALBUMIN/GLOBULIN RATIO 0.9 (1.0-1.7); CALCIUM 8.9 mg/dL (8.5-10.1); CREATININE 0.9 mg/dL (0.6-1.0); POTASSIUM 3.7 mmol/L (3.5-5.1); TOTAL BILIRUBIN 0.7 mg/dL (0.2-1.0)
--- NOTE | 2019-03-16 08:29 | PN ---
DATE: 03/15/2019 PSYCHIATRIC PROGRESS NOTE This note covers elements not covered in my initial note 03/15/2019. SUBJECTIVE: I met with the patient in the evening. The patient slept 6-3/4 hours previous night. The patient has done reasonably with her fluid intake as ordered. She does have a history of falls. She is paranoid, suspicious, worried that her belongings are safe. She put her one of her dentures in the sock and the other one can be found by nursing staff. She attended the groups for judaism services and was singing. REVIEW OF SYSTEMS: Positive for some tiredness, weakness, left leg. No CV, , pulmonary, eye system symptoms on review. MENTAL STATUS EXAM: Reasonably oriented. Speech is coherent, less pressured. Abstraction fair, computation impaired, language function intact, attention span short. Mood and affect less labile. LABORATORY DATA: Reviewed. IMPRESSION: Unchanged from initial note. PLAN: No change from initial note and we may need to increase Clozaril, which we may do tomorrow after the absolute neutrophil counts. MAN Marek SHELL MD DR: JESSEE/umer JOB#: [id number] / [id number]
[2019-03-16 16:02] VITALS: BP 123/79
[2019-03-16] MEDS: cloZAPine 100 MG TABLET PO SCH (20:10)
--- NOTE | 2019-03-16 22:22 | PDOC ---
Exam Note: Sami Note: Please also refer to the separate dictated note~for this date of service dictated separately.~Patient seen individually. Discussed the patient with Nursing staff reviewed the chart.~Reviewed interim history and current functioning. Reviewed vital signs,~Labs/ Radiology~and current medications noted below. Continue current treatment with the changes noted in the dictated addendum note Assessment: Vital Signs: Vital Signs Date Time Temp Pulse Resp B/P (MAP) Pulse Ox O2 Delivery O2 Flow Rate FiO2 03/16/19 16:02 97.3 62 18 123/79 (94) 98 03/13/19 16:21 Room Air I&O Intake and Output 03/16/19 07:00 Intake Total 1200 ml Balance 1200 ml Intake Oral 1200 ml # Bowel Movements 1 Labs: Laboratory Tests Test 03/16/19 06:30 White Blood Count 5.8 x10^3/uL (4.0-11.0) Red Blood Count 3.92 x10^6/uL (3.50-5.40) Hemoglobin 12.8 g/dL (12.0-15.5) Hematocrit 38.1 % (36.0-47.0) Mean Corpuscular Volume 97 fL (79-100) Mean Corpuscular Hemoglobin 33 pg (25-35) Mean Corpuscular Hemoglobin Concent 34 g/dL (31-37) Red Cell Distribution Width 14.6 % (11.5-14.5) H Platelet Count 139 x10^3/uL (140-400) L Neutrophils (%) (Auto) 61 % (31-73) Lymphocytes (%) (Auto) 25 % (24-48) Monocytes (%) (Auto) 8 % (0-9) Eosinophils (%) (Auto) 5 % (0-3) H Basophils (%) (Auto) 1 % (0-3) Neutrophils # (Auto) 3.6 x10^3uL (1.8-7.7) Lymphocytes # (Auto) 1.5 x10^3/uL (1.0-4.8) Monocytes # (Auto) 0.5 x10^3/uL (0.0-1.1) Eosinophils # (Auto) 0.3 x10^3/uL (0.0-0.7) Basophils # (Auto) 0.0 x10^3/uL (0.0-0.2) Sodium Level 144 mmol/L (136-145) Potassium Level 3.7 mmol/L (3.5-5.1) Chloride Level 108 mmol/L (98-107) H Carbon Dioxide Level 25 mmol/L (21-32) Anion Gap 11 (6-14) Blood Urea Nitrogen 11 mg/dL (7-20) Creatinine 0.9 mg/dL (0.6-1.0) Estimated GFR (Cockcroft-Gault) 77.0 BUN/Creatinine Ratio 12 (6-20) Glucose Level 88 mg/dL (70-99) Calcium Level 8.9 mg/dL (8.5-10.1) Total Bilirubin 0.7 mg/dL (0.2-1.0) Aspartate Amino Transferase (AST) 45 U/L (15-37) H Alanine Aminotransferase (ALT) 51 U/L (14-59) Alkaline Phosphatase 160 U/L (46-116) H Total Protein 7.0 g/dL (6.4-8.2) Albumin 3.3 g/dL (3.4-5.0) L Albumin/Globulin Ratio 0.9 (1.0-1.7) L Current Medications: Meds: Current Medications Al Hydroxide/Mg Hydroxide (Mylanta Plus Xs) 15 ml PRN AFTMEALHC PRN PO DYSPEPSIA; Start 03/12/19 at 16:15 Magnesium Hydroxide (Milk Of Magnesia) 2,400 mg PRN QHS PRN PO CONSTIPATION; Start 03/12/19 at 16:15 Nicotine (Nicoderm Cq 21mg) 1 patch DAILY TD Last administered on 03/16/19at 07:34; Start 03/13/19 at 09:00 Clozapine (Clozaril) 350 mg QHS PO Last administered on 03/16/19 20:10; Start 03/12/19 at 21:00 Citalopram Hydrobromide (CeleXA) 10 mg DAILY PO Last administered on 03/16/19at 07:32; Start 03/13/19 at 09:00; Stop 03/16/19 at 16:51; Status DC Risperidone (RisperDAL) 1 mg BID PO Last administered on 03/16/19at 20:11; Start 03/12/19 at 21:00 Acetaminophen (Tylenol) 650 mg PRN Q4HRS PRN PO PAIN / TEMP; Start 03/12/19 at 20:45 Vitamin D (Vitamin D3) 2,000 unit DAILY PO Last administered on 03/16/19at 07:34; Start 03/13/19 at 09:00 Mirabegron (Myrbetriq) 25 mg DAILY PO Last administered on 03/16/19at 07:33; Start 03/13/19 at 09:00 Tramadol HCl (Ultram) 50 mg PRN Q8HRS PRN PO PAIN; Start 03/12/19 at 20:45 Lactulose (Lactulose) 10 gm QID PO Last administered on 03/16/19at 20:10; Start 03/12/19 at 21:00 Lamotrigine (LaMICtal) 200 mg DAILY PO Last administered on 03/13/19at 09:20; Start 03/13/19 at 09:00; Stop 03/13/19 at 17:33; Status DC Multi-Ingredient Ointment (Analgesic [place]) 1 marcos PRN Q6HRS PRN TP MUSCLE PAIN; Start 03/12/19 at 21:00 Naproxen (Naprosyn) 250 mg BID PO Last administered on 03/16/19at 20:10; Start 03/12/19 at 21:00 Multi-Ingred Cream/Lotion/Oil/ Oint (Hydrocerin) 1 marcos PRN DAILY PRN TP DRYNESS OF NARES; Start 03/12/19 at 21:00 Lamotrigine (LaMICtal) 250 mg DAILY PO Last administered on 03/16/19at 07:33; Start 03/14/19 at 09:00 Fluvoxamine Maleate (Luvox) 25 mg DAILY PO ; Start 03/17/19 at 09:00 Fluvoxamine Maleate (Luvox) 50 mg DAILY PO ; Start 03/20/19 at 09:00; Stop 03/20/19 at 09:00; Status DC Active Scripts Active Reported Risperdal (Risperidone) 1 Mg Tablet 1 Mg PO BID Naproxen Sodium 550 Mg Tablet 220 Mg PO BID Clozapine 100 Mg Tablet 350 Mg PO QHS Escitalopram Oxalate 5 Mg Tablet 5 Mg PO DAILY Vitamin D3 (Cholecalciferol (Vitamin D3)) 1,000 Unit Tablet 2,000 Unit PO DAILY Lamotrigine 200 Mg Tablet 200 Mg PO DAILY Myrbetriq (Mirabegron) 25 Mg Tab.er.24h 25 Mg PO DAILY Lactulose 10 Gm/15 Ml Solution 10 Gm PO QID Petroleum Jelly Lip Treatment (Petrolatum,White) 9.9 Gm Jelly..g. 9.9 Gm TP PRN PRN [place] Ultra Strength (Menthol) 1 Each Adh..patch 1 Each TP Q6HRS Tramadol Hcl (Tramadol HCl) 50 Mg Tablet 50 Mg PO PRN Q8HRS PRN Tylenol (Acetaminophen) 325 Mg Tablet 650 Mg PO PRN Q4HRS PRN I have reviewed the current psychotropics carefully including drug interactions. Risk benefit ratio favors no change other than as noted in my dictated progress note. Diagnosis: Problems: (1) Medical clearance for psychiatric admission (2) Anxiety disorder (3) Impulse control disorder (4) Schizoaffective disorder, chronic condition with acute exacerbation (5) Psychosis, atypical MARIALUISA SHELL MD Mar 16, 2019 22:22
[2019-03-17 05:43] VITALS: BP 128/84
[2019-03-17] MEDS: LACTULOSE 20 GM/30 ML SOLUTION. PO SCH ×4 (08:07→20:00)
[2019-03-17] MEDS: NAPROXEN 250 MG TABLET PO SCH ×2 (08:07→20:03)
[2019-03-17] MEDS: risperiDONE 1 MG TABLET. PO SCH ×2 (08:07→20:03)
[2019-03-17] MEDS: CHOLECALCIFEROL (VITAMIN D3) 1,000 UNIT TABLET PO SCH (08:07)
[2019-03-17] MEDS: lamoTRIgine 100 MG TABLET. PO SCH (08:08)
[2019-03-17] MEDS: NICOTINE 21MG PATCH. TD SCH (08:08)
[2019-03-17] MEDS: MIRABEGRON 25 MG TAB.ER.24H PO SCH (08:09)
[2019-03-17 16:27] VITALS: BP 132/83
[2019-03-17] MEDS: cloZAPine 100 MG TABLET PO SCH (20:01)
--- NOTE | 2019-03-17 22:00 | PN ---
DATE: 03/16/2019 PSYCHIATRIC PROGRESS NOTE This late entry 03/16/2019 covers elements not covered in my initial note. SUBJECTIVE: I met with the patient in the evening. The patient slept 3-3/4 hours previous night. She spent much time in bed during the day talking about a crack pipe to the recreation aide, somewhat obsessed about this. She gets fixated on certain topics as a hard time moving beyond that. REVIEW OF SYSTEMS: No CV, , pulmonary, eye system symptoms on review. She has lost one of her dentures and I addressed this with her. MENTAL STATUS EXAM: Oriented to herself and situation. Speech is coherent, somewhat pressured at times. Abstraction fair, computation impaired, language function intact, attention span short. Mood and affect still somewhat anxious, labile. LABORATORY DATA: Reviewed. IMPRESSION: Unchanged from initial note. PLAN: Change the Celexa to Luvox 25 mg a day for 3 days, then 50 mg a day. On further review, the pharmacist indicated Luvox, due to cytochrome P450 interactions could increase the clozapine levels and we will not increase it to 50 mg with the pharmacist okay, thus at least using the 25 mg and see how she tolerates it. Rest unchanged from initial note. MAN Marek SHELL MD DR: JESSEE/umer JOB#: [id number] / [id number]
--- NOTE | 2019-03-17 22:37 | PDOC ---
Exam Note: Sami Note: Please also refer to the separate dictated note~for this date of service dictated separately.~Patient seen individually. Discussed the patient with Nursing staff reviewed the chart.~Reviewed interim history and current functioning. Reviewed vital signs,~Labs/ Radiology~and current medications noted below. Continue current treatment with the changes noted in the dictated addendum note Assessment: Vital Signs: Vital Signs Date Time Temp Pulse Resp B/P (MAP) Pulse Ox O2 Delivery O2 Flow Rate FiO2 03/17/19 16:27 98.1 91 18 132/83 (99) 99 03/13/19 16:21 Room Air I&O Intake and Output 03/17/19 06:59 Intake Total 1060 ml Balance 1060 ml Intake Oral 1060 ml Current Medications: Meds: Current Medications Al Hydroxide/Mg Hydroxide (Mylanta Plus Xs) 15 ml PRN AFTMEALHC PRN PO DYSP EPSIA; Start 03/12/19 at 16:15 Magnesium Hydroxide (Milk Of Magnesia) 2,400 mg PRN QHS PRN PO CONSTIPATION; Start 03/12/19 at 16:15 Nicotine (Nicoderm Cq 21mg) 1 patch DAILY TD Last administered on 03/17/19 08:08; Start 03/13/19 at 09:00 Clozapine (Clozaril) 350 mg QHS PO Last administered on 03/17/19 20:01; Start 03/12/19 at 21:00 Citalopram Hydrobromide (CeleXA) 10 mg DAILY PO Last administered on 03/16/19at 07:32; Start 03/13/19 at 09:00; Stop 03/16/19 at 16:51; Status DC Risperidone (RisperDAL) 1 mg BID PO Last administered on 03/17/19at 20:03; Start 03/12/19 at 21:00 Acetaminophen (Tylenol) 650 mg PRN Q4HRS PRN PO PAIN / TEMP; Start 03/12/19 at 20:45 Vitamin D (Vitamin D3) 2,000 unit DAILY PO Last administered on 03/17/19 08:07; Start 03/13/19 at 09:00 Mirabegron (Myrbetriq) 25 mg DAILY PO Last administered on 03/17/19 08:09; Start 03/13/19 at 09:00 Tramadol HCl (Ultram) 50 mg PRN Q8HRS PRN PO PAIN; Start 03/12/19 at 20:45 Lactulose (Lactulose) 10 gm QID PO Last administered on 03/17/19at 20:00; Start 03/12/19 at 21:00 Lamotrigine (LaMICtal) 200 mg DAILY PO Last administered on 03/13/19at 09:20; Start 03/13/19 at 09:00; Stop 03/13/19 at 17:33; Status DC Multi-Ingredient Ointment (Analgesic [place]) 1 marcos PRN Q6HRS PRN TP MUSCLE PAIN; Start 03/12/19 at 21:00 Naproxen (Naprosyn) 250 mg BID PO Last administered on 03/17/19at 20:03; Start 03/12/19 at 21:00 Multi-Ingred Cream/Lotion/Oil/ Oint (Hydrocerin) 1 marcos PRN DAILY PRN TP DRYNESS OF NARES; Start 03/12/19 at 21:00 Lamotrigine (LaMICtal) 250 mg DAILY PO Last administered on 03/17/19at 08:08; Start 03/14/19 at 09:00 Fluvoxamine Maleate (Luvox) 25 mg DAILY PO Last administered on 03/17/19at 08:09; Start 03/17/19 at 09:00 Fluvoxamine Maleate (Luvox) 50 mg DAILY PO ; Start 03/20/19 at 09:00; Stop 03/20/19 at 09:00; Status DC Active Scripts Active Reported Risperdal (Risperidone) 1 Mg Tablet 1 Mg PO BID Naproxen Sodium 550 Mg Tablet 220 Mg PO BID Clozapine 100 Mg Tablet 350 Mg PO QHS Escitalopram Oxalate 5 Mg Tablet 5 Mg PO DAILY Vitamin D3 (Cholecalciferol (Vitamin D3)) 1,000 Unit Tablet 2,000 Unit PO DAILY Lamotrigine 200 Mg Tablet 200 Mg PO DAILY Myrbetriq (Mirabegron) 25 Mg Tab.er.24h 25 Mg PO DAILY Lactulose 10 Gm/15 Ml Solution 10 Gm PO QID Petroleum Jelly Lip Treatment (Petrolatum,White) 9.9 Gm Jelly..g. 9.9 Gm TP PRN PRN [place] Ultra Strength (Menthol) 1 Each Adh..patch 1 Each TP Q6HRS Tramadol Hcl (Tramadol HCl) 50 Mg Tablet 50 Mg PO PRN Q8HRS PRN Tylenol (Acetaminophen) 325 Mg Tablet 650 Mg PO PRN Q4HRS PRN I have reviewed the current psychotropics carefully including drug interactions. Risk benefit ratio favors no change other than as noted in my dictated progress note. Diagnosis: Problems: (1) Anxiety disorder (2) Impulse control disorder (3) Schizoaffective disorder, chronic condition with acute exacerbation (4) Psychosis, atypical MARIALUISA SHELL MD Mar 17, 2019 22:37
[2019-03-18 05:51] VITALS: BP 113/75
[2019-03-18] MEDS: LACTULOSE 20 GM/30 ML SOLUTION. PO SCH ×4 (08:55→19:15)
[2019-03-18] MEDS: lamoTRIgine 100 MG TABLET. PO SCH (08:55)
[2019-03-18] MEDS: NICOTINE 21MG PATCH. TD SCH (08:56)
[2019-03-18] MEDS: risperiDONE 1 MG TABLET. PO SCH ×2 (08:56→19:15)
[2019-03-18] MEDS: CHOLECALCIFEROL (VITAMIN D3) 1,000 UNIT TABLET PO SCH (08:56)
[2019-03-18] MEDS: NAPROXEN 250 MG TABLET PO SCH ×2 (08:56→19:15)
[2019-03-18] MEDS: MIRABEGRON 25 MG TAB.ER.24H PO SCH (09:01)
[2019-03-18 16:47] VITALS: BP 102/66
[2019-03-18] MEDS: cloZAPine 100 MG TABLET PO SCH (19:14)
--- NOTE | 2019-03-18 21:38 | PN ---
DATE: 03/17/2019 PSYCHIATRIC PROGRESS NOTE This late entry 03/17/2019 covers elements not covered in my initial note. SUBJECTIVE: I met with the patient in the evening at length in her room. She slept 7 hours previous night, has been pleasant, less psychotic, compliant with medications. REVIEW OF SYSTEMS: No CV, , pulmonary, eye system symptoms on review. Complains of some leg weakness. MENTAL STATUS EXAM: Oriented to herself and situation. Speech has some latency, coherent. Abstraction fair, computation impaired, language function intact, attention span short. Mood and affect still somewhat withdrawn, but improved. LABORATORY DATA: Reviewed. IMPRESSION: Unchanged from initial note. PLAN: No change from initial note. MAN Marek SHELL MD DR: JESSEE/umer JOB#: [id number] / [id number]
--- NOTE | 2019-03-18 22:41 | PDOC ---
Exam Note: Sami Note: Please also refer to the separate dictated note~for this date of service dictated separately.~Patient seen individually. Discussed the patient with Nursing staff reviewed the chart.~Reviewed interim history and current functioning. Reviewed vital signs,~Labs/ Radiology~and current medications noted below. Continue current treatment with the changes noted in the dictated addendum note Assessment: Vital Signs: Vital Signs Date Time Temp Pulse Resp B/P (MAP) Pulse Ox O2 Delivery O2 Flow Rate FiO2 03/18/19 16:47 97.9 114 22 102/66 (78) 99 03/13/19 16:21 Room Air I&O Intake and Output 03/18/19 06:59 Intake Total 1320 ml Balance 1320 ml Intake Oral 1320 ml Current Medications: Meds: Current Medications Al Hydroxide/Mg Hydroxide (Mylanta Plus Xs) 15 ml PRN AFTMEALHC PRN PO DYS PEPSIA; Start 03/12/19 at 16:15 Magnesium Hydroxide (Milk Of Magnesia) 2,400 mg PRN QHS PRN PO CONSTIPATION; Start 03/12/19 at 16:15 Nicotine (Nicoderm Cq 21mg) 1 patch DAILY TD Last administered on 03/18/19 08:56; Start 03/13/19 at 09:00 Clozapine (Clozaril) 350 mg QHS PO Last administered on 03/18/19 19:14; Start 03/12/19 at 21:00 Citalopram Hydrobromide (CeleXA) 10 mg DAILY PO Last administered on 03/16/19at 07:32; Start 03/13/19 at 09:00; Stop 03/16/19 at 16:51; Status DC Risperidone (RisperDAL) 1 mg BID PO Last administered on 03/18/19 19:15; Start 03/12/19 at 21:00 Acetaminophen (Tylenol) 650 mg PRN Q4HRS PRN PO PAIN / TEMP; Start 03/12/19 at 20:45 Vitamin D (Vitamin D3) 2,000 unit DAILY PO Last administered on 03/18/19 08:56; Start 03/13/19 at 09:00 Mirabegron (Myrbetriq) 25 mg DAILY PO Last administered on 03/18/19 09:01; Start 03/13/19 at 09:00 Tramadol HCl (Ultram) 50 mg PRN Q8HRS PRN PO PAIN; Start 03/12/19 at 20:45 Lactulose (Lactulose) 10 gm QID PO Last administered on 03/18/19at 19:15; Start 03/12/19 at 21:00 Lamotrigine (LaMICtal) 200 mg DAILY PO Last administered on 03/13/19at 09:20; Start 03/13/19 at 09:00; Stop 03/13/19 at 17:33; Status DC Multi-Ingredient Ointment (Analgesic [place]) 1 marcos PRN Q6HRS PRN TP MUSCLE PAIN; Start 03/12/19 at 21:00 Naproxen (Naprosyn) 250 mg BID PO Last administered on 03/18/19at 19:15; Start 03/12/19 at 21:00 Multi-Ingred Cream/Lotion/Oil/ Oint (Hydrocerin) 1 marcos PRN DAILY PRN TP DRYNESS OF NARES; Start 03/12/19 at 21:00 Lamotrigine (LaMICtal) 250 mg DAILY PO Last administered on 03/18/19at 08:55; Start 03/14/19 at 09:00 Fluvoxamine Maleate (Luvox) 25 mg DAILY PO Last administered on 03/18/19at 08:55; Start 03/17/19 at 09:00 Fluvoxamine Maleate (Luvox) 50 mg DAILY PO ; Start 03/20/19 at 09:00; Stop 03/20/19 at 09:00; Status DC Active Scripts Active Reported Risperdal (Risperidone) 1 Mg Tablet 1 Mg PO BID Naproxen Sodium 550 Mg Tablet 220 Mg PO BID Clozapine 100 Mg Tablet 350 Mg PO QHS Escitalopram Oxalate 5 Mg Tablet 5 Mg PO DAILY Vitamin D3 (Cholecalciferol (Vitamin D3)) 1,000 Unit Tablet 2,000 Unit PO DAILY Lamotrigine 200 Mg Tablet 200 Mg PO DAILY Myrbetriq (Mirabegron) 25 Mg Tab.er.24h 25 Mg PO DAILY Lactulose 10 Gm/15 Ml Solution 10 Gm PO QID Petroleum Jelly Lip Treatment (Petrolatum,White) 9.9 Gm Jelly..g. 9.9 Gm TP PRN PRN [place] Ultra Strength (Menthol) 1 Each Adh..patch 1 Each TP Q6HRS Tramadol Hcl (Tramadol HCl) 50 Mg Tablet 50 Mg PO PRN Q8HRS PRN Tylenol (Acetaminophen) 325 Mg Tablet 650 Mg PO PRN Q4HRS PRN I have reviewed the current psychotropics carefully including drug interactions. Risk benefit ratio favors no change other than as noted in my dictated progress note. Diagnosis: Problems: (1) Medical clearance for psychiatric admission (2) Anxiety disorder (3) Impulse control disorder (4) Schizoaffective disorder, chronic condition with acute exacerbation (5) Psychosis, atypical MARIALUISA SHELL MD Mar 18, 2019 22:41
[2019-03-19 00:12] VITALS: BP 144/88
[2019-03-19 06:00] VITALS: BP 126/77
[2019-03-19] MEDS: LACTULOSE 20 GM/30 ML SOLUTION. PO SCH ×4 (08:27→19:50)
[2019-03-19] MEDS: NAPROXEN 250 MG TABLET PO SCH ×2 (08:28→19:49)
[2019-03-19] MEDS: lamoTRIgine 100 MG TABLET. PO SCH (08:28)
[2019-03-19] MEDS: risperiDONE 1 MG TABLET. PO SCH ×2 (08:28→19:50)
[2019-03-19] MEDS: CHOLECALCIFEROL (VITAMIN D3) 1,000 UNIT TABLET PO SCH (08:29)
[2019-03-19] MEDS: NICOTINE 21MG PATCH. TD SCH (08:29)
[2019-03-19] MEDS: MIRABEGRON 25 MG TAB.ER.24H PO SCH (08:39)
[2019-03-19 15:47] VITALS: BP 146/85
[2019-03-19] MEDS: cloZAPine 100 MG TABLET PO SCH (19:48)
--- NOTE | 2019-03-19 22:49 | PDOC ---
Exam Note: Sami Note: Please also refer to the separate dictated note~for this date of service dictated separately.~Patient seen individually. Discussed the patient with Nursing staff reviewed the chart.~Reviewed interim history and current functioning. Reviewed vital signs,~Labs/ Radiology~and current medications noted below. Continue current treatment with the changes noted in the dictated addendum note Assessment: Vital Signs: Vital Signs Date Time Temp Pulse Resp B/P (MAP) Pulse Ox O2 Delivery O2 Flow Rate FiO2 03/19/19 15:47 98.6 75 18 146/85 (105) 97 03/13/19 16:21 Room Air I&O Intake and Output 03/19/19 07:00 Intake Total 960 ml Balance 960 ml Intake Oral 960 ml Current Medications: Meds: Current Medications Al Hydroxide/Mg Hydroxide (Mylanta Plus Xs) 15 ml PRN AFTMEALHC PRN PO DYSPEP YANNICK; Start 03/12/19 at 16:15 Magnesium Hydroxide (Milk Of Magnesia) 2,400 mg PRN QHS PRN PO CONSTIPATION; Start 03/12/19 at 16:15 Nicotine (Nicoderm Cq 21mg) 1 patch DAILY TD Last administered on 03/19/19 08:29; Start 03/13/19 at 09:00 Clozapine (Clozaril) 350 mg QHS PO Last administered on 03/19/19 19:48; Start 03/12/19 at 21:00 Citalopram Hydrobromide (CeleXA) 10 mg DAILY PO Last administered on 03/16/19at 07:32; Start 03/13/19 at 09:00; Stop 03/16/19 at 16:51; Status DC Risperidone (RisperDAL) 1 mg BID PO Last administered on 03/19/19at 19:50; Start 03/12/19 at 21:00 Acetaminophen (Tylenol) 650 mg PRN Q4HRS PRN PO PAIN / TEMP; Start 03/12/19 at 20:45 Vitamin D (Vitamin D3) 2,000 unit DAILY PO Last administered on 03/19/19 08:29; Start 03/13/19 at 09:00 Mirabegron (Myrbetriq) 25 mg DAILY PO Last administered on 03/19/19 08:39; Start 03/13/19 at 09:00 Tramadol HCl (Ultram) 50 mg PRN Q8HRS PRN PO PAIN; Start 03/12/19 at 20:45 Lactulose (Lactulose) 10 gm QID PO Last administered on 03/19/19at 17:00; Start 03/12/19 at 21:00 Lamotrigine (LaMICtal) 200 mg DAILY PO Last administered on 03/13/19at 09:20; Start 03/13/19 at 09:00; Stop 03/13/19 at 17:33; Status DC Multi-Ingredient Ointment (Analgesic [place]) 1 marcos PRN Q6HRS PRN TP MUSCLE PAIN; Start 03/12/19 at 21:00 Naproxen (Naprosyn) 250 mg BID PO Last administered on 03/19/19at 19:49; Start 03/12/19 at 21:00 Multi-Ingred Cream/Lotion/Oil/ Oint (Hydrocerin) 1 marcos PRN DAILY PRN TP DRYNESS OF NARES; Start 03/12/19 at 21:00 Lamotrigine (LaMICtal) 250 mg DAILY PO Last administered on 03/19/19at 08:28; Start 03/14/19 at 09:00 Fluvoxamine Maleate (Luvox) 25 mg DAILY PO Last administered on 03/19/19at 08:28; Start 03/17/19 at 09:00 Fluvoxamine Maleate (Luvox) 50 mg DAILY PO ; Start 03/20/19 at 09:00; Stop 03/20/19 at 09:00; Status DC Olanzapine (ZyPREXA ZYDIS) 2.5 mg PRN Q2HR PRN PO PSYCHOSIS; Start 03/19/19 at 17:45 Active Scripts Active Reported Risperdal (Risperidone) 1 Mg Tablet 1 Mg PO BID Naproxen Sodium 550 Mg Tablet 220 Mg PO BID Clozapine 100 Mg Tablet 350 Mg PO QHS Escitalopram Oxalate 5 Mg Tablet 5 Mg PO DAILY Vitamin D3 (Cholecalciferol (Vitamin D3)) 1,000 Unit Tablet 2,000 Unit PO DAILY Lamotrigine 200 Mg Tablet 200 Mg PO DAILY Myrbetriq (Mirabegron) 25 Mg Tab.er.24h 25 Mg PO DAILY Lactulose 10 Gm/15 Ml Solution 10 Gm PO QID Petroleum Jelly Lip Treatment (Petrolatum,White) 9.9 Gm Jelly..g. 9.9 Gm TP PRN PRN [place] Ultra Strength (Menthol) 1 Each Adh..patch 1 Each TP Q6HRS Tramadol Hcl (Tramadol HCl) 50 Mg Tablet 50 Mg PO PRN Q8HRS PRN Tylenol (Acetaminophen) 325 Mg Tablet 650 Mg PO PRN Q4HRS PRN I have reviewed the current psychotropics carefully including drug interactions. Risk benefit ratio favors no change other than as noted in my dictated progress note. Diagnosis: Problems: (1) Medical clearance for psychiatric admission (2) Anxiety disorder (3) Impulse control disorder (4) Schizoaffective disorder, chronic condition with acute exacerbation (5) Psychosis, atypical MARIALUISA SHELL MD Mar 19, 2019 22:49
[2019-03-20 06:08] VITALS: BP 91/63
[2019-03-20] MEDS: CHOLECALCIFEROL (VITAMIN D3) 1,000 UNIT TABLET PO SCH (08:13)
[2019-03-20] MEDS: NAPROXEN 250 MG TABLET PO SCH ×3 (08:13→21:00)
[2019-03-20] MEDS: NICOTINE 21MG PATCH. TD SCH (08:14)
[2019-03-20] MEDS: LACTULOSE 20 GM/30 ML SOLUTION. PO SCH ×5 (08:14→21:00)
[2019-03-20] MEDS: MIRABEGRON 25 MG TAB.ER.24H PO SCH (08:14)
[2019-03-20] MEDS: risperiDONE 1 MG TABLET. PO SCH ×3 (08:14→21:00)
[2019-03-20] MEDS: lamoTRIgine 100 MG TABLET. PO SCH (08:14)
[2019-03-20 11:00] VITALS: BP 134/87
[2019-03-20 16:15] VITALS: BP 154/96
[2019-03-20] MEDS: cloZAPine 100 MG TABLET PO SCH ×2 (19:31→21:00)
[2019-03-20] MEDS: MIRTAZAPINE 7.5 MG TABLET. PO SCH ×2 (19:57→21:00)
--- NOTE | 2019-03-20 21:51 | RAD ---
EXAM: Head CT without contrast. HISTORY: Change in mental status. TECHNIQUE: Computed tomographic images of the head were obtained without contrast. *One or more of the following individualized dose reduction techniques were utilized for this examination: 1. Automated exposure control. 2. Adjustment of the mA and/or kV according to patient size. 3. Use of iterative reconstruction technique. COMPARISON: None. FINDINGS: There is no acute or subacute extra-axial or intraparenchymal hemorrhage. There is no mass effect or midline shift. There is no hydrocephalus. There are areas of decreased attenuation within the cerebral white matter, nonspecific and likely related to chronic small vessel disease. There is faint calcification within the left greater than right globus pallidus, an incidental finding. There is a parietal scalp hematoma to the right of midline. The visualized portions of the orbits, paranasal sinuses and mastoid air cells are unremarkable. No suspicious calvarial lesion is seen. IMPRESSION: 1. Parietal scalp hematoma to the right of midline. 2. No acute intracranial finding. Note is made that MRI is more sensitive for acute infarction. 3. Subtle areas of hypodensity within the cerebral white matter, likely due to chronic small vessel disease. Electronically signed by: Radha Walls MD (03/20/2019 9:48 PM) [facility]
--- NOTE | 2019-03-20 22:30 | PDOC ---
Exam Note: Sami Note: Please also refer to the separate dictated note~for this date of service dictated separately.~Patient seen individually. Discussed the patient with Nursing staff reviewed the chart.~Reviewed interim history and current functioning. Reviewed vital signs,~Labs/ Radiology~and current medications noted below. Continue current treatment with the changes noted in the dictated addendum note Assessment: Vital Signs: Vital Signs Date Time Temp Pulse Resp B/P (MAP) Pulse Ox O2 Delivery O2 Flow Rate FiO2 03/20/19 16:15 98.0 87 18 154/96 (115) 99 Room Air I&O Intake and Output 03/20/19 07:00 Intake Total 960 ml Balance 960 ml Intake Oral 960 ml # Bowel Movements 1 Current Medications: Meds: Current Medications Al Hydroxide/Mg Hydroxide (Mylanta Plus Xs) 15 ml PRN AFTMEALHC PRN PO DYSPEPSI A; Start 03/12/19 at 16:15 Magnesium Hydroxide (Milk Of Magnesia) 2,400 mg PRN QHS PRN PO CONSTIPATION; Start 03/12/19 at 16:15 Nicotine (Nicoderm Cq 21mg) 1 patch DAILY TD Last administered on 03/20/19at 08:14; Start 03/13/19 at 09:00 Clozapine (Clozaril) 350 mg QHS PO Last administered on 03/19/19at 19:48; Start 03/12/19 at 21:00 Citalopram Hydrobromide (CeleXA) 10 mg DAILY PO Last administered on 03/16/19at 07:32; Start 03/13/19 at 09:00; Stop 03/16/19 at 16:51; Status DC Risperidone (RisperDAL) 1 mg BID PO Last administered on 03/20/19at 08:14; Start 03/12/19 at 21:00 Acetaminophen (Tylenol) 650 mg PRN Q4HRS PRN PO PAIN / TEMP; Start 03/12/19 at 20:45 Vitamin D (Vitamin D3) 2,000 unit DAILY PO Last administered on 03/20/19at 08:13; Start 03/13/19 at 09:00 Mirabegron (Myrbetriq) 25 mg DAILY PO Last administered on 03/20/19at 08:14; Start 03/13/19 at 09:00 Tramadol HCl (Ultram) 50 mg PRN Q8HRS PRN PO PAIN; Start 03/12/19 at 20:45 Lactulose (Lactulose) 10 gm QID PO Last administered on 03/19/19at 17:00; Start 03/12/19 at 21:00 Lamotrigine (LaMICtal) 200 mg DAILY PO Last administered on 03/13/19at 09:20; Start 03/13/19 at 09:00; Stop 03/13/19 at 17:33; Status DC Multi-Ingredient Ointment (Analgesic [place]) 1 marcos PRN Q6HRS PRN TP MUSCLE PAIN; Start 03/12/19 at 21:00 Naproxen (Naprosyn) 250 mg BID PO Last administered on 03/20/19at 08:13; Start 03/12/19 at 21:00 Multi-Ingred Cream/Lotion/Oil/ Oint (Hydrocerin) 1 marcos PRN DAILY PRN TP DRYNESS OF NARES; Start 03/12/19 at 21:00 Lamotrigine (LaMICtal) 250 mg DAILY PO Last administered on 03/20/19at 08:14; Start 03/14/19 at 09:00; Stop 03/20/19 at 19:38; Status DC Fluvoxamine Maleate (Luvox) 25 mg DAILY PO Last administered on 03/20/19at 08:13; Start 03/17/19 at 09:00 Fluvoxamine Maleate (Luvox) 50 mg DAILY PO ; Start 03/20/19 at 09:00; Stop 03/20/19 at 09:00; Status DC Olanzapine (ZyPREXA ZYDIS) 2.5 mg PRN Q2HR PRN PO PSYCHOSIS; Start 03/19/19 at 17:45 Mirtazapine (Remeron) 7.5 mg QHS PO ; Start 03/20/19 at 21:00 Lamotrigine (LaMICtal) 200 mg DAILY08 PO ; Start 03/21/19 at 08:00; Stop 03/24/19 at 07:59 Lamotrigine (LaMICtal) 150 mg DAILY08 PO ; Start 03/24/19 at 08:00; Stop 03/27/19 at 07:59 Lamotrigine (LaMICtal) 100 mg DAILY08 PO ; Start 03/28/19 at 08:00 Divalproex Sodium (Depakote Er) 250 mg HS PO ; Start 03/21/19 at 21:00 Active Scripts Active Reported Risperdal (Risperidone) 1 Mg Tablet 1 Mg PO BID Naproxen Sodium 550 Mg Tablet 220 Mg PO BID Clozapine 100 Mg Tablet 350 Mg PO QHS Escitalopram Oxalate 5 Mg Tablet 5 Mg PO DAILY Vitamin D3 (Cholecalciferol (Vitamin D3)) 1,000 Unit Tablet 2,000 Unit PO DAILY Lamotrigine 200 Mg Tablet 200 Mg PO DAILY Myrbetriq (Mirabegron) 25 Mg Tab.er.24h 25 Mg PO DAILY Lactulose 10 Gm/15 Ml Solution 10 Gm PO QID Petroleum Jelly Lip Treatment (Petrolatum,White) 9.9 Gm Jelly..g. 9.9 Gm TP PRN PRN [place] Ultra Strength (Menthol) 1 Each Adh..patch 1 Each TP Q6HRS Tramadol Hcl (Tramadol HCl) 50 Mg Tablet 50 Mg PO PRN Q8HRS PRN Tylenol (Acetaminophen) 325 Mg Tablet 650 Mg PO PRN Q4HRS PRN I have reviewed the current psychotropics carefully including drug interactions. Risk benefit ratio favors no change other than as noted in my dictated progress note. Diagnosis: Problems: (1) Anxiety disorder (2) Impulse control disorder (3) Schizoaffective disorder, chronic condition with acute exacerbation (4) Psychosis, atypical MARIALUISA SHELL MD Mar 20, 2019 22:30
[2019-03-21 01:08] VITALS: BP 138/93
--- NOTE | 2019-03-21 01:19 | PN ---
DATE: 03/18/2019 This late entry for 03/18/2019 covers elements not covered in my initial note. SUBJECTIVE: I met with the patient in the evening. The patient slept 7-1/4 hours previous night. She is compliant with medications, less psychotic, still somewhat anxious, labile in her mood at times. She did well at night. REVIEW OF SYSTEMS: No CV, , pulmonary, eye, ENT system symptoms on review. Reliability poor. MENTAL STATUS EXAM: Oriented to herself and situation. Speech has some latency, coherent, somewhat tearful, anxious at times as I met with her in her room. Abstraction fair, computation impaired, language function intact, attention span short. Mood and affect somewhat withdrawn, anxious, labile at times. LABORATORY DATA: Reviewed. IMPRESSION: Schizoaffective disorder, bipolar type, mixed with psychotic features, in partial remission; anxiety disorder, unspecified; impulse control disorder, unspecified. PLAN: Continue psychotropics from initial note. Adjust as clinically indicated. MARIALUISA SHELL MD DR: JESSEE/umer JOB#: [id number] / [id number]
[2019-03-21 06:49] VITALS: BP 127/77
[2019-03-21] MEDS: NICOTINE 21MG PATCH. TD SCH (08:31)
[2019-03-21] MEDS: NAPROXEN 250 MG TABLET PO SCH ×2 (08:31→20:41)
[2019-03-21] MEDS: risperiDONE 1 MG TABLET. PO SCH ×2 (08:31→20:41)
[2019-03-21] MEDS: CHOLECALCIFEROL (VITAMIN D3) 1,000 UNIT TABLET PO SCH (08:32)
[2019-03-21] MEDS: LACTULOSE 20 GM/30 ML SOLUTION. PO SCH ×4 (08:32→20:41)
[2019-03-21] MEDS: lamoTRIgine 100 MG TABLET. PO SCH (08:34)
[2019-03-21] MEDS: MIRABEGRON 25 MG TAB.ER.24H PO SCH (08:35)
--- NOTE | 2019-03-21 15:39 | PN ---
DATE: 03/19/2019 PSYCHIATRIC PROGRESS NOTE This late entry of 03/19/2019 covers elements not covered in my initial note. SUBJECTIVE: I met with the patient in the evening and staffed at a treatment team meeting with the entire team in the morning. The patient's appetite 85%. Slept 6 hours. She is compliant, pleasant, confused. We reviewed her history. She has been at [facility] for 1 year and has had no seizures since then. She repeatedly puts herself on the floor at the alf and fell the previous night, in fact might have put herself on the floor. We will add Zyprexa 2.5 mg q.2 hours p.r.n. psychosis, agitation, max 10 mg in 24 hours. REVIEW OF SYSTEMS: No CV, , pulmonary, eye system symptoms on review. Gait slightly unsteady. MENTAL STATUS EXAM: Oriented to herself and situation. Speech has some latency, low in volume, coherent, tearful at times. Abstraction fair, computation impaired, language function intact, attention span short. Mood and affect remain somewhat anxious, labile. LABORATORY DATA: Reviewed. IMPRESSION: Unchanged from initial note. PLAN: No change from initial note. Start Zyprexa. Consider Depakote for her bipolar disorder, mixed versus manic. The Lamictal will probably not adequately control it. We will have a Neurology consult with Dr. Durand before doing this to get approval if it is okay to change the lamotrigine by gradual taper and then start the Depakote. Rest unchanged including Luvox, Clozaril at current dosage. MAN Marek SHELL MD DR: JESSEE/umer JOB#: [id number] / [id number]
--- NOTE | 2019-03-21 16:45 | PN ---
DATE: 03/20/2019 PSYCHIATRIC PROGRESS NOTE This late entry of 03/20/2019 covers elements not covered in my initial note. SUBJECTIVE: I met with the patient in the evening. The patient slept 5 hours previous night. She has put herself on the floor around 11:00 a.m., hit her head, but no bump is noted. Later at lunchtime, again, she threw herself on the floor. I addressed this at length with her individually in her room. REVIEW OF SYSTEMS: Ambulation impaired. No CV, , pulmonary, eye system symptoms on review. MENTAL STATUS EXAM: Oriented to herself and situation. Speech has some latency, coherent, somewhat anxious, tearful at times. Abstraction fair, computation impaired, language function intact, attention span short. Mood and affect remain somewhat anxious, labile. LABORATORY DATA: Reviewed. IMPRESSION: Unchanged from initial note. PLAN: We discussed with Dr. Durand about possibly changing Lamictal to Depakote. Dr. Durand is in agreement with it. This is for her bipolar manic mixed symptoms, which are predominant rather than depressive symptoms, which would respond to the Lamictal. We will go ahead and reduce the Lamictal to 250 mg a day for 3 days, 150 mg a day for 3 days, then down to 100 mg a day; start Depakote ER 250 mg at bedtime. Check CBC, CMP, valproic acid level in 3 days. Adjust to reach therapeutic level. Start Remeron 7.5 mg p.o. at bedtime to help with insomnia. Maintain Luvox, clozapine at current dosage. MAN Marek SHELL MD DR: JESSEE/umer JOB#: [id number] / [id number]
[2019-03-21] MEDS: MIRTAZAPINE 7.5 MG TABLET. PO SCH (20:41)
[2019-03-21] MEDS: cloZAPine 100 MG TABLET PO SCH (20:41)
[2019-03-21] MEDS: DIVALPROEX ER 250 MG TAB.ER.24H. PO SCH (20:44)
--- NOTE | 2019-03-21 20:46 | PDOC ---
Exam Note: Sami Note: Please also refer to the separate dictated note~for this date of service dictated separately.~Patient seen individually. Discussed the patient with Nursing staff reviewed the chart.~Reviewed interim history and current functioning. Reviewed vital signs,~Labs/ Radiology~and current medications noted below. Continue current treatment with the changes noted in the dictated addendum note Assessment: Vital Signs: Vital Signs Date Time Temp Pulse Resp B/P (MAP) Pulse Ox O2 Delivery O2 Flow Rate FiO2 03/21/19 06:49 98.1 77 18 127/77 (94) 96 03/20/19 16:15 Room Air I&O Intake and Output 03/21/19 07:00 Intake Total 718 ml Balance 718 ml Intake Oral 718 ml Current Medications: Meds: Current Medications Al Hydroxide/Mg Hydroxide (Mylanta Plus Xs) 15 ml PRN AFTMEALHC PRN PO DYSPEPSI A; Start 03/12/19 at 16:15 Magnesium Hydroxide (Milk Of Magnesia) 2,400 mg PRN QHS PRN PO CONSTIPATION; Start 03/12/19 at 16:15 Nicotine (Nicoderm Cq 21mg) 1 patch DAILY TD Last administered on 03/21/19 08:31; Start 03/13/19 at 09:00 Clozapine (Clozaril) 350 mg QHS PO Last administered on 03/19/19 19:48; Start 03/12/19 at 21:00 Citalopram Hydrobromide (CeleXA) 10 mg DAILY PO Last administered on 03/16/19 07:32; Start 03/13/19 at 09:00; Stop 03/16/19 at 16:51; Status DC Risperidone (RisperDAL) 1 mg BID PO Last administered on 03/21/19 08:31; Start 03/12/19 at 21:00 Acetaminophen (Tylenol) 650 mg PRN Q4HRS PRN PO PAIN / TEMP; Start 03/12/19 at 20:45 Vitamin D (Vitamin D3) 2,000 unit DAILY PO Last administered on 03/21/19 08:32; Start 03/13/19 at 09:00 Mirabegron (Myrbetriq) 25 mg DAILY PO Last administered on 03/21/19 08:35; Start 03/13/19 at 09:00 Tramadol HCl (Ultram) 50 mg PRN Q8HRS PRN PO PAIN; Start 03/12/19 at 20:45 Lactulose (Lactulose) 10 gm QID PO Last administered on 03/19/19at 17:00; Start 03/12/19 at 21:00 Lamotrigine (LaMICtal) 200 mg DAILY PO Last administered on 03/13/19at 09:20; Start 03/13/19 at 09:00; Stop 03/13/19 at 17:33; Status DC Multi-Ingredient Ointment (Analgesic [place]) 1 marcos PRN Q6HRS PRN TP MUSCLE PAIN; Start 03/12/19 at 21:00 Naproxen (Naprosyn) 250 mg BID PO Last administered on 03/21/19at 08:31; Start 03/12/19 at 21:00 Multi-Ingred Cream/Lotion/Oil/ Oint (Hydrocerin) 1 marcos PRN DAILY PRN TP DRYNESS OF NARES; Start 03/12/19 at 21:00 Lamotrigine (LaMICtal) 250 mg DAILY PO Last administered on 03/20/19at 08:14; Start 03/14/19 at 09:00; Stop 03/20/19 at 19:38; Status DC Fluvoxamine Maleate (Luvox) 25 mg DAILY PO Last administered on 03/21/19at 08:31; Start 03/17/19 at 09:00 Fluvoxamine Maleate (Luvox) 50 mg DAILY PO ; Start 03/20/19 at 09:00; Stop 03/20/19 at 09:00; Status DC Olanzapine (ZyPREXA ZYDIS) 2.5 mg PRN Q2HR PRN PO PSYCHOSIS; Start 03/19/19 at 17:45 Mirtazapine (Remeron) 7.5 mg QHS PO ; Start 03/20/19 at 21:00 Lamotrigine (LaMICtal) 200 mg DAILY08 PO Last administered on 03/21/19at 08:34; Start 03/21/19 at 08:00; Stop 03/24/19 at 07:59 Lamotrigine (LaMICtal) 150 mg DAILY08 PO ; Start 03/24/19 at 08:00; Stop 03/27/19 at 07:59 Lamotrigine (LaMICtal) 100 mg DAILY08 PO ; Start 03/28/19 at 08:00 Divalproex Sodium (Depakote Er) 250 mg HS PO ; Start 03/21/19 at 21:00 Active Scripts Active Reported Risperdal (Risperidone) 1 Mg Tablet 1 Mg PO BID Naproxen Sodium 550 Mg Tablet 220 Mg PO BID Clozapine 100 Mg Tablet 350 Mg PO QHS Escitalopram Oxalate 5 Mg Tablet 5 Mg PO DAILY Vitamin D3 (Cholecalciferol (Vitamin D3)) 1,000 Unit Tablet 2,000 Unit PO DAILY Lamotrigine 200 Mg Tablet 200 Mg PO DAILY Myrbetriq (Mirabegron) 25 Mg Tab.er.24h 25 Mg PO DAILY Lactulose 10 Gm/15 Ml Solution 10 Gm PO QID Petroleum Jelly Lip Treatment (Petrolatum,White) 9.9 Gm Jelly..g. 9.9 Gm TP PRN PRN [place] Ultra Strength (Menthol) 1 Each Adh..patch 1 Each TP Q6HRS Tramadol Hcl (Tramadol HCl) 50 Mg Tablet 50 Mg PO PRN Q8HRS PRN Tylenol (Acetaminophen) 325 Mg Tablet 650 Mg PO PRN Q4HRS PRN I have reviewed the current psychotropics carefully including drug interactions. Risk benefit ratio favors no change other than as noted in my dictated progress note. Diagnosis: Problems: (1) Medical clearance for psychiatric admission (2) Anxiety disorder (3) Impulse control disorder (4) Schizoaffective disorder, chronic condition with acute exacerbation (5) Psychosis, atypical MARIALUISA SHELL MD Mar 21, 2019 20:46
[2019-03-22 06:06] VITALS: BP 98/63
[2019-03-22] MEDS: LACTULOSE 20 GM/30 ML SOLUTION. PO SCH ×4 (08:01→19:32)
[2019-03-22] MEDS: risperiDONE 1 MG TABLET. PO SCH ×2 (08:02→19:31)
[2019-03-22] MEDS: lamoTRIgine 100 MG TABLET. PO SCH (08:02)
[2019-03-22] MEDS: NICOTINE 21MG PATCH. TD SCH (08:04)
[2019-03-22] MEDS: NAPROXEN 250 MG TABLET PO SCH ×2 (08:04→19:31)
[2019-03-22] MEDS: CHOLECALCIFEROL (VITAMIN D3) 1,000 UNIT TABLET PO SCH (08:04)
[2019-03-22] MEDS: MIRABEGRON 25 MG TAB.ER.24H PO SCH (08:05)
[2019-03-22 12:04] LABS: BASO # 0.1 x10^3/uL (0.0-0.2); BASO % 1 % (0-3); EOS # 0.2 x10^3/uL (0.0-0.7); EOS % 3 % (0-3); HEMATOCRIT 40.7 % (36.0-47.0); HEMOGLOBIN 13.5 g/dL (12.0-15.5); LYMPH # 1.5 x10^3/uL (1.0-4.8); LYMPH % 23 % (24-48); MEAN CORPUSCULAR HEMOGLOBIN 32 pg (25-35); MEAN CORPUSCULAR HGB CONC 33 g/dL (31-37); MEAN CORPUSCULAR VOLUME 98 fL (79-100); MONO # 0.5 x10^3/uL (0.0-1.1); MONO % 8 % (0-9); NEUT % 65 % (31-73); PLATELET COUNT 163 x10^3/uL (140-400); RED BLOOD COUNT 4.17 x10^6/uL (3.50-5.40); RED CELL DISTRIBUTION WIDTH 14.8 % (11.5-14.5); WHITE BLOOD COUNT 6.2 x10^3/uL (4.0-11.0)
[2019-03-22 12:13] LABS: ALBUMIN 3.5 g/dL (3.4-5.0); ALBUMIN/GLOBULIN RATIO 0.9 (1.0-1.7); CALCIUM 9.7 mg/dL (8.5-10.1); CREATININE 1.7 mg/dL (0.6-1.0); POTASSIUM 4.1 mmol/L (3.5-5.1); TOTAL BILIRUBIN 0.6 mg/dL (0.2-1.0); TOTAL PROTEIN 7.5 g/dL (6.4-8.2)
--- NOTE | 2019-03-22 12:53 | PN ---
DATE: 03/21/2019 PSYCHIATRIC PROGRESS NOTE This late entry 03/21/2019 covers elements not covered in my initial note. SUBJECTIVE: I met with the patient in the evening of 03/21/2019 in her room. She slept 6-1/2 hours previous night. Previous evening, she had a fall, hit her head. CT head was negative. There is a scalp hematoma, we will defer to Dr. Morley. She is tolerating the gradual taper of Lamictal to Depakote and Dr. Durand approved of this. No CV, , pulmonary, eye system symptoms on review. She is somewhat withdrawn to her room, impaired ambulation, sedated. MENTAL STATUS EXAM: Oriented to herself and situation. Speech is coherent, has some latency. Abstraction fair, computation impaired, language function intact, attention span short. Mood and affect; somewhat withdrawn, labile at times, obsessive. LABORATORY DATA: Reviewed. IMPRESSION: Unchanged from initial note. PLAN: Continue clozapine, Luvox, and gradually cross taper the lamotrigine and gradually increase the Depakote. Follow labs level, adjust as indicated. MAN Marek SHELL MD DR: JESSEE/umer JOB#: [id number] / [id number]
[2019-03-22 15:51] VITALS: BP 128/83
[2019-03-22] MEDS: DIVALPROEX ER 250 MG TAB.ER.24H. PO SCH (19:30)
[2019-03-22] MEDS: cloZAPine 100 MG TABLET PO SCH (19:30)
[2019-03-22] MEDS: MIRTAZAPINE 7.5 MG TABLET. PO SCH (19:32)
--- NOTE | 2019-03-22 22:48 | PDOC ---
Exam Note: Sami Note: Please also refer to the separate dictated note~for this date of service dictated separately.~Patient seen individually. Discussed the patient with Nursing staff reviewed the chart.~Reviewed interim history and current functioning. Reviewed vital signs,~Labs/ Radiology~and current medications noted below. Continue current treatment with the changes noted in the dictated addendum note Assessment: Vital Signs: Vital Signs Date Time Temp Pulse Resp B/P (MAP) Pulse Ox O2 Delivery O2 Flow Rate FiO2 03/22/19 15:51 98.0 87 16 128/83 (98) 94 03/20/19 16:15 Room Air I&O Intake and Output 03/22/19 06:59 Intake Total 840 ml Balance 840 ml Intake Oral 840 ml # Voids 1 Labs: Laboratory Tests Test 03/22/19 11:27 White Blood Count 6.2 x10^3/uL (4.0-11.0) Red Blood Count 4.17 x10^6/uL (3.50-5.40) Hemoglobin 13.5 g/dL (12.0-15.5) Hematocrit 40.7 % (36.0-47.0) Mean Corpuscular Volume 98 fL (79-100) Mean Corpuscular Hemoglobin 32 pg (25-35) Mean Corpuscular Hemoglobin Concent 33 g/dL (31-37) Red Cell Distribution Width 14.8 % (11.5-14.5) H Platelet Count 163 x10^3/uL (140-400) Neutrophils (%) (Auto) 65 % (31-73) Lymphocytes (%) (Auto) 23 % (24-48) L Monocytes (%) (Auto) 8 % (0-9) Eosinophils (%) (Auto) 3 % (0-3) Basophils (%) (Auto) 1 % (0-3) Neutrophils # (Auto) 4.0 x10^3uL (1.8-7.7) Lymphocytes # (Auto) 1.5 x10^3/uL (1.0-4.8) Monocytes # (Auto) 0.5 x10^3/uL (0.0-1.1) Eosinophils # (Auto) 0.2 x10^3/uL (0.0-0.7) Basophils # (Auto) 0.1 x10^3/uL (0.0-0.2) Sodium Level 143 mmol/L (136-145) Potassium Level 4.1 mmol/L (3.5-5.1) Chloride Level 108 mmol/L (98-107) H Carbon Dioxide Level 23 mmol/L (21-32) Anion Gap 12 (6-14) Blood Urea Nitrogen 22 mg/dL (7-20) H Creatinine 1.7 mg/dL (0.6-1.0) H Estimated GFR (Cockcroft-Gault) 37.0 BUN/Creatinine Ratio 13 (6-20) Glucose Level 104 mg/dL (70-99) H Calcium Level 9.7 mg/dL (8.5-10.1) Total Bilirubin 0.6 mg/dL (0.2-1.0) Aspartate Amino Transferase (AST) 46 U/L (15-37) H Alanine Aminotransferase (ALT) 55 U/L (14-59) Alkaline Phosphatase 156 U/L (46-116) H Total Protein 7.5 g/dL (6.4-8.2) Albumin 3.5 g/dL (3.4-5.0) Albumin/Globulin Ratio 0.9 (1.0-1.7) L Current Medications: Meds: Current Medications Al Hydroxide/Mg Hydroxide (Mylanta Plus Xs) 15 ml PRN AFTMEALHC PRN PO DYSPEPSIA; Start 03/12/19 at 16:15 Magnesium Hydroxide (Milk Of Magnesia) 2,400 mg PRN QHS PRN PO CONSTIPATION; Start 03/12/19 at 16:15 Nicotine (Nicoderm Cq 21mg) 1 patch DAILY TD Last administered on 03/22/19at 08:04; Start 03/13/19 at 09:00 Clozapine (Clozaril) 350 mg QHS PO Last administered on 03/22/19 19:30; Start 03/12/19 at 21:00 Citalopram Hydrobromide (CeleXA) 10 mg DAILY PO Last administered on 03/16/19at 07:32; Start 03/13/19 at 09:00; Stop 03/16/19 at 16:51; Status DC Risperidone (RisperDAL) 1 mg BID PO Last administered on 03/22/19at 19:31; Start 03/12/19 at 21:00 Acetaminophen (Tylenol) 650 mg PRN Q4HRS PRN PO PAIN / TEMP; Start 03/12/19 at 20:45 Vitamin D (Vitamin D3) 2,000 unit DAILY PO Last administered on 03/22/19at 08:04; Start 03/13/19 at 09:00 Mirabegron (Myrbetriq) 25 mg DAILY PO Last administered on 03/22/19at 08:05; Start 03/13/19 at 09:00 Tramadol HCl (Ultram) 50 mg PRN Q8HRS PRN PO PAIN; Start 03/12/19 at 20:45 Lactulose (Lactulose) 10 gm QID PO Last administered on 03/22/19at 19:32; Start 03/12/19 at 21:00 Lamotrigine (LaMICtal) 200 mg DAILY PO Last administered on 03/13/19at 09:20; Start 03/13/19 at 09:00; Stop 03/13/19 at 17:33; Status DC Multi-Ingredient Ointment (Analgesic [place]) 1 marcos PRN Q6HRS PRN TP MUSCLE PAIN; Start 03/12/19 at 21:00 Naproxen (Naprosyn) 250 mg BID PO Last administered on 03/22/19at 19:31; Start 03/12/19 at 21:00 Multi-Ingred Cream/Lotion/Oil/ Oint (Hydrocerin) 1 marcos PRN DAILY PRN TP DRYNESS OF NARES; Start 03/12/19 at 21:00 Lamotrigine (LaMICtal) 250 mg DAILY PO Last administered on 03/20/19at 08:14; Start 03/14/19 at 09:00; Stop 03/20/19 at 19:38; Status DC Fluvoxamine Maleate (Luvox) 25 mg DAILY PO Last administered on 03/22/19at 08:02; Start 03/17/19 at 09:00 Fluvoxamine Maleate (Luvox) 50 mg DAILY PO ; Start 03/20/19 at 09:00; Stop 03/20/19 at 09:00; Status DC Olanzapine (ZyPREXA ZYDIS) 2.5 mg PRN Q2HR PRN PO PSYCHOSIS; Start 03/19/19 at 17:45 Mirtazapine (Remeron) 7.5 mg QHS PO Last administered on 6/9/19at 19:32; Start 03/20/19 at 21:00 Lamotrigine (LaMICtal) 200 mg DAILY08 PO Last administered on 03/22/19at 08:02; Start 03/21/19 at 08:00; Stop 03/24/19 at 07:59 Lamotrigine (LaMICtal) 150 mg DAILY08 PO ; Start 03/24/19 at 08:00; Stop 03/27/19 at 07:59 Lamotrigine (LaMICtal) 100 mg DAILY08 PO ; Start 03/28/19 at 08:00 Divalproex Sodium (Depakote Er) 250 mg HS PO Last administered on 03/22/19at 19:30; Start 03/21/19 at 21:00 Active Scripts Active Reported Risperdal (Risperidone) 1 Mg Tablet 1 Mg PO BID Naproxen Sodium 550 Mg Tablet 220 Mg PO BID Clozapine 100 Mg Tablet 350 Mg PO QHS Escitalopram Oxalate 5 Mg Tablet 5 Mg PO DAILY Vitamin D3 (Cholecalciferol (Vitamin D3)) 1,000 Unit Tablet 2,000 Unit PO DAILY Lamotrigine 200 Mg Tablet 200 Mg PO DAILY Myrbetriq (Mirabegron) 25 Mg Tab.er.24h 25 Mg PO DAILY Lactulose 10 Gm/15 Ml Solution 10 Gm PO QID Petroleum Jelly Lip Treatment (Petrolatum,White) 9.9 Gm Jelly..g. 9.9 Gm TP PRN PRN [place] Ultra Strength (Menthol) 1 Each Adh..patch 1 Each TP Q6HRS Tramadol Hcl (Tramadol HCl) 50 Mg Tablet 50 Mg PO PRN Q8HRS PRN Tylenol (Acetaminophen) 325 Mg Tablet 650 Mg PO PRN Q4HRS PRN I have reviewed the current psychotropics carefully including drug interactions. Risk benefit ratio favors no change other than as noted in my dictated progress note. Diagnosis: Problems: (1) Anxiety disorder (2) Impulse control disorder (3) Schizoaffective disorder, chronic condition with acute exacerbation (4) Psychosis, atypical MARIALUISA SHELL MD Mar 22, 2019 22:48
[2019-03-23 06:01] VITALS: BP 148/89
[2019-03-23] MEDS: lamoTRIgine 100 MG TABLET. PO SCH (10:08)
[2019-03-23] MEDS: LACTULOSE 20 GM/30 ML SOLUTION. PO SCH ×4 (10:10→19:46)
[2019-03-23] MEDS: risperiDONE 1 MG TABLET. PO SCH ×2 (10:11→19:47)
[2019-03-23] MEDS: NAPROXEN 250 MG TABLET PO SCH ×2 (10:11→19:46)
[2019-03-23] MEDS: CHOLECALCIFEROL (VITAMIN D3) 1,000 UNIT TABLET PO SCH (10:11)
[2019-03-23] MEDS: NICOTINE 21MG PATCH. TD SCH (10:12)
[2019-03-23] MEDS: MIRABEGRON 25 MG TAB.ER.24H PO SCH (10:14)
--- NOTE | 2019-03-23 11:58 | PN ---
DATE: 03/22/2019 PSYCHIATRIC PROGRESS NOTE This late entry 03/22/2019 covers elements not covered in my initial note. SUBJECTIVE: Met with the patient in the evening. The patient slept 8-3/4 hours previous night. She slept 10 in the morning, but previous evening refused dinner, threw herself on the floor x 2, hit her head, no injury noted. Staffs are encouraging her to stay in the day room. REVIEW OF SYSTEMS: Ambulation impaired. No CV, , pulmonary, eye, ENT system symptoms on review. MENTAL STATUS EXAM: Oriented to herself and situation. Speech is coherent, has some latency. Abstraction fair, computation impaired, language function intact, attention span short. Mood and affect is somewhat withdrawn, anxious, labile, tearful at times. LABORATORY DATA: Reviewed. IMPRESSION: Schizoaffective disorder, bipolar type, mixed with psychotic features. Rest unchanged. PLAN: Continue current psychotropics, Luvox 25 mg daily, Clozaril 350 bedtime, Lamictal is being tapered and Depakote ER started 250 mg at bedtime. Check labs level. Maintain Remeron 7.5 at bedtime. MAN Marek SHELL MD DR: JESSEE/umer JOB#: [id number] / [id number]
[2019-03-23 15:48] VITALS: BP 103/63
[2019-03-23] MEDS: cloZAPine 100 MG TABLET PO SCH (19:46)
[2019-03-23] MEDS: MIRTAZAPINE 7.5 MG TABLET. PO SCH (19:46)
[2019-03-23] MEDS: DIVALPROEX ER 250 MG TAB.ER.24H. PO SCH (19:46)
--- NOTE | 2019-03-23 22:39 | PDOC ---
Exam Note: Sami Note: Please also refer to the separate dictated note~for this date of service dictated separately.~Patient seen individually. Discussed the patient with Nursing staff reviewed the chart.~Reviewed interim history and current functioning. Reviewed vital signs,~Labs/ Radiology~and current medications noted below. Continue current treatment with the changes noted in the dictated addendum note Assessment: Vital Signs: Vital Signs Date Time Temp Pulse Resp B/P (MAP) Pulse Ox O2 Delivery O2 Flow Rate FiO2 03/23/19 15:48 97.3 101 16 103/63 (76) 94 03/20/19 16:15 Room Air I&O Intake and Output 03/23/19 07:00 Intake Total 1140 ml Balance 1140 ml Intake Oral 1140 ml Current Medications: Meds: Current Medications Al Hydroxide/Mg Hydroxide (Mylanta Plus Xs) 15 ml PRN AFTMEALHC PRN PO DY SPEPSIA; Start 03/12/19 at 16:15 Magnesium Hydroxide (Milk Of Magnesia) 2,400 mg PRN QHS PRN PO CONSTIPATION; Start 03/12/19 at 16:15 Nicotine (Nicoderm Cq 21mg) 1 patch DAILY TD Last administered on 03/23/19at 10:12; Start 03/13/19 at 09:00 Clozapine (Clozaril) 350 mg QHS PO Last administered on 03/23/19 19:46; Start 03/12/19 at 21:00 Citalopram Hydrobromide (CeleXA) 10 mg DAILY PO Last administered on 03/16/19at 07:32; Start 03/13/19 at 09:00; Stop 03/16/19 at 16:51; Status DC Risperidone (RisperDAL) 1 mg BID PO Last administered on 03/23/19at 19:47; Start 03/12/19 at 21:00 Acetaminophen (Tylenol) 650 mg PRN Q4HRS PRN PO PAIN / TEMP; Start 03/12/19 at 20:45 Vitamin D (Vitamin D3) 2,000 unit DAILY PO Last administered on 03/23/19at 10:11; Start 03/13/19 at 09:00 Mirabegron (Myrbetriq) 25 mg DAILY PO Last administered on 03/23/19 10:14; Start 03/13/19 at 09:00 Tramadol HCl (Ultram) 50 mg PRN Q8HRS PRN PO PAIN; Start 03/12/19 at 20:45 Lactulose (Lactulose) 10 gm QID PO Last administered on 03/23/19at 19:46; Start 03/12/19 at 21:00 Lamotrigine (LaMICtal) 200 mg DAILY PO Last administered on 03/13/19at 09:20; Start 03/13/19 at 09:00; Stop 03/13/19 at 17:33; Status DC Multi-Ingredient Ointment (Analgesic [place]) 1 marcos PRN Q6HRS PRN TP MUSCLE PAIN; Start 03/12/19 at 21:00 Naproxen (Naprosyn) 250 mg BID PO Last administered on 03/23/19at 19:46; Start 03/12/19 at 21:00 Multi-Ingred Cream/Lotion/Oil/ Oint (Hydrocerin) 1 marcos PRN DAILY PRN TP DRYNESS OF NARES; Start 03/12/19 at 21:00 Lamotrigine (LaMICtal) 250 mg DAILY PO Last administered on 03/20/19at 08:14; Start 03/14/19 at 09:00; Stop 03/20/19 at 19:38; Status DC Fluvoxamine Maleate (Luvox) 25 mg DAILY PO Last administered on 03/23/19at 10:10; Start 03/17/19 at 09:00 Fluvoxamine Maleate (Luvox) 50 mg DAILY PO ; Start 03/20/19 at 09:00; Stop 03/20/19 at 09:00; Status DC Olanzapine (ZyPREXA ZYDIS) 2.5 mg PRN Q2HR PRN PO PSYCHOSIS; Start 03/19/19 at 17:45 Mirtazapine (Remeron) 7.5 mg QHS PO Last administered on 03/23/19at 19:46; Start 03/20/19 at 21:00 Lamotrigine (LaMICtal) 200 mg DAILY08 PO Last administered on 03/23/19at 10:08; Start 03/21/19 at 08:00; Stop 03/24/19 at 07:59 Lamotrigine (LaMICtal) 150 mg DAILY08 PO ; Start 03/24/19 at 08:00; Stop 6/14/19 at 07:59 Lamotrigine (LaMICtal) 100 mg DAILY08 PO ; Start 03/28/19 at 08:00 Divalproex Sodium (Depakote Er) 250 mg HS PO Last administered on 03/23/19at 19:46; Start 03/21/19 at 21:00 Active Scripts Active Reported Risperdal (Risperidone) 1 Mg Tablet 1 Mg PO BID Naproxen Sodium 550 Mg Tablet 220 Mg PO BID Clozapine 100 Mg Tablet 350 Mg PO QHS Escitalopram Oxalate 5 Mg Tablet 5 Mg PO DAILY Vitamin D3 (Cholecalciferol (Vitamin D3)) 1,000 Unit Tablet 2,000 Unit PO DAILY Lamotrigine 200 Mg Tablet 200 Mg PO DAILY Myrbetriq (Mirabegron) 25 Mg Tab.er.24h 25 Mg PO DAILY Lactulose 10 Gm/15 Ml Solution 10 Gm PO QID Petroleum Jelly Lip Treatment (Petrolatum,White) 9.9 Gm Jelly..g. 9.9 Gm TP PRN PRN [place] Ultra Strength (Menthol) 1 Each Adh..patch 1 Each TP Q6HRS Tramadol Hcl (Tramadol HCl) 50 Mg Tablet 50 Mg PO PRN Q8HRS PRN Tylenol (Acetaminophen) 325 Mg Tablet 650 Mg PO PRN Q4HRS PRN I have reviewed the current psychotropics carefully including drug interactions. Risk benefit ratio favors no change other than as noted in my dictated progress note. Diagnosis: Problems: (1) Anxiety disorder (2) Impulse control disorder (3) Schizoaffective disorder, chronic condition with acute exacerbation (4) Psychosis, atypical MARIALUISA SHELL MD Mar 23, 2019 22:39
[2019-03-24 05:41] VITALS: BP 137/77
[2019-03-24 07:26] LABS: BASO # 0.1 x10^3/uL (0.0-0.2); BASO % 1 % (0-3); EOS # 0.4 x10^3/uL (0.0-0.7); EOS % 6 % (0-3); HEMATOCRIT 37.7 % (36.0-47.0); HEMOGLOBIN 12.5 g/dL (12.0-15.5); LYMPH # 1.8 x10^3/uL (1.0-4.8); LYMPH % 27 % (24-48); MEAN CORPUSCULAR HEMOGLOBIN 32 pg (25-35); MEAN CORPUSCULAR HGB CONC 33 g/dL (31-37); MEAN CORPUSCULAR VOLUME 97 fL (79-100); MONO # 0.5 x10^3/uL (0.0-1.1); MONO % 8 % (0-9); NEUT # 3.9 x10^3uL (1.8-7.7); NEUT % 59 % (31-73); PLATELET COUNT 143 x10^3/uL (140-400); RED BLOOD COUNT 3.87 x10^6/uL (3.50-5.40); RED CELL DISTRIBUTION WIDTH 14.9 % (11.5-14.5); WHITE BLOOD COUNT 6.6 x10^3/uL (4.0-11.0)
[2019-03-24 07:30] LABS: ALBUMIN 2.9 g/dL (3.4-5.0); ALBUMIN/GLOBULIN RATIO 0.8 (1.0-1.7); ALK PHOS 146 U/L (46-116); ALT (SGPT) 41 U/L (14-59); ANION GAP 8 (6-14); AST (SGOT) 30 U/L (15-37); BLOOD UREA NITROGEN 23 mg/dL (7-20); BUN/CREATININE RATIO 19 (6-20); CALCIUM 8.5 mg/dL (8.5-10.1); CARBON DIOXIDE 26 mmol/L (21-32); CHLORIDE 109 mmol/L (98-107); CREATININE 1.2 mg/dL (0.6-1.0); GFR 55.3; GLUCOSE 94 mg/dL (70-99); POTASSIUM 4.4 mmol/L (3.5-5.1); SODIUM 143 mmol/L (136-145); TOTAL BILIRUBIN 0.4 mg/dL (0.2-1.0); TOTAL PROTEIN 6.6 g/dL (6.4-8.2)
[2019-03-24 07:37] LABS: VAL ACID 29 mcg/mL (50-100)
[2019-03-24] MEDS: NAPROXEN 250 MG TABLET PO SCH ×2 (09:10→19:09)
[2019-03-24] MEDS: LACTULOSE 20 GM/30 ML SOLUTION. PO SCH ×4 (09:10→19:09)
[2019-03-24] MEDS: CHOLECALCIFEROL (VITAMIN D3) 1,000 UNIT TABLET PO SCH (09:10)
[2019-03-24] MEDS: NICOTINE 21MG PATCH. TD SCH (09:10)
[2019-03-24] MEDS: MIRABEGRON 25 MG TAB.ER.24H PO SCH (09:11)
[2019-03-24] MEDS: risperiDONE 1 MG TABLET. PO SCH ×2 (09:11→19:09)
[2019-03-24] MEDS: lamoTRIgine 100 MG TABLET. PO SCH (09:12)
[2019-03-24 16:36] VITALS: BP 113/75
[2019-03-24] MEDS: cloZAPine 100 MG TABLET PO SCH (19:08)
[2019-03-24] MEDS: MIRTAZAPINE 7.5 MG TABLET. PO SCH (19:09)
[2019-03-24] MEDS: DIVALPROEX ER 250 MG TAB.ER.24H. PO SCH (19:09)
--- NOTE | 2019-03-24 22:45 | PDOC ---
Exam Note: Sami Note: Please also refer to the separate dictated note~for this date of service dictated separately.~Patient seen individually. Discussed the patient with Nursing staff reviewed the chart.~Reviewed interim history and current functioning. Reviewed vital signs,~Labs/ Radiology~and current medications noted below. Continue current treatment with the changes noted in the dictated addendum note Assessment: Vital Signs: Vital Signs Date Time Temp Pulse Resp B/P (MAP) Pulse Ox O2 Delivery O2 Flow Rate FiO2 03/24/19 16:36 98.8 99 18 113/75 (88) 100 03/20/19 16:15 Room Air I&O Intake and Output 03/24/19 07:00 Intake Total 720 ml Balance 720 ml Intake Oral 720 ml Labs: Laboratory Tests Test 03/24/19 07:10 White Blood Count 6.6 x10^3/uL (4.0-11.0) Red Blood Count 3.87 x10^6/uL (3.50-5.40) Hemoglobin 12.5 g/dL (12.0-15.5) Hematocrit 37.7 % (36.0-47.0) Mean Corpuscular Volume 97 fL (79-100) Mean Corpuscular Hemoglobin 32 pg (25-35) Mean Corpuscular Hemoglobin Concent 33 g/dL (31-37) Red Cell Distribution Width 14.9 % (11.5-14.5) H Platelet Count 143 x10^3/uL (140-400) Neutrophils (%) (Auto) 59 % (31-73) Lymphocytes (%) (Auto) 27 % (24-48) Monocytes (%) (Auto) 8 % (0-9) Eosinophils (%) (Auto) 6 % (0-3) H Basophils (%) (Auto) 1 % (0-3) Neutrophils # (Auto) 3.9 x10^3uL (1.8-7.7) Lymphocytes # (Auto) 1.8 x10^3/uL (1.0-4.8) Monocytes # (Auto) 0.5 x10^3/uL (0.0-1.1) Eosinophils # (Auto) 0.4 x10^3/uL (0.0-0.7) Basophils # (Auto) 0.1 x10^3/uL (0.0-0.2) Sodium Level 143 mmol/L (136-145) Potassium Level 4.4 mmol/L (3.5-5.1) Chloride Level 109 mmol/L (98-107) H Carbon Dioxide Level 26 mmol/L (21-32) Anion Gap 8 (6-14) Blood Urea Nitrogen 23 mg/dL (7-20) H Creatinine 1.2 mg/dL (0.6-1.0) H Estimated GFR (Cockcroft-Gault) 55.3 BUN/Creatinine Ratio 19 (6-20) Glucose Level 94 mg/dL (70-99) Calcium Level 8.5 mg/dL (8.5-10.1) Total Bilirubin 0.4 mg/dL (0.2-1.0) Aspartate Amino Transferase (AST) 30 U/L (15-37) Alanine Aminotransferase (ALT) 41 U/L (14-59) Alkaline Phosphatase 146 U/L (46-116) H Total Protein 6.6 g/dL (6.4-8.2) Albumin 2.9 g/dL (3.4-5.0) L Albumin/Globulin Ratio 0.8 (1.0-1.7) L Valproic Acid Level 29 mcg/mL (50-100) L Valproic Acid Last Dose Date 03/23/19 Valproic Acid Last Dose Time 2100 Current Medications: Meds: Current Medications Al Hydroxide/Mg Hydroxide (Mylanta Plus Xs) 15 ml PRN AFTMEALHC PRN PO DYSPEPSIA; Start 03/12/19 at 16:15 Magnesium Hydroxide (Milk Of Magnesia) 2,400 mg PRN QHS PRN PO CONSTIPATION; Start 03/12/19 at 16:15 Nicotine (Nicoderm Cq 21mg) 1 patch DAILY TD Last administered on 03/24/19at 09:10; Start 03/13/19 at 09:00 Clozapine (Clozaril) 350 mg QHS PO Last administered on 03/24/19at 19:08; Start 03/12/19 at 21:00 Citalopram Hydrobromide (CeleXA) 10 mg DAILY PO Last administered on 03/16/19at 07:32; Start 03/13/19 at 09:00; Stop 03/16/19 at 16:51; Status DC Risperidone (RisperDAL) 1 mg BID PO Last administered on 03/24/19at 19:09; Start 03/12/19 at 21:00 Acetaminophen (Tylenol) 650 mg PRN Q4HRS PRN PO PAIN / TEMP; Start 03/12/19 at 20:45 Vitamin D (Vitamin D3) 2,000 unit DAILY PO Last administered on 03/24/19at 09:10; Start 03/13/19 at 09:00 Mirabegron (Myrbetriq) 25 mg DAILY PO Last administered on 03/24/19at 09:11; Start 03/13/19 at 09:00 Tramadol HCl (Ultram) 50 mg PRN Q8HRS PRN PO PAIN; Start 03/12/19 at 20:45 Lactulose (Lactulose) 10 gm QID PO Last administered on 03/24/19at 19:09; Start 03/12/19 at 21:00 Lamotrigine (LaMICtal) 200 mg DAILY PO Last administered on 03/13/19at 09:20; Start 03/13/19 at 09:00; Stop 03/13/19 at 17:33; Status DC Multi-Ingredient Ointment (Analgesic [place]) 1 marcos PRN Q6HRS PRN TP MUSCLE PAIN; Start 03/12/19 at 21:00 Naproxen (Naprosyn) 250 mg BID PO Last administered on 03/24/19at 19:09; Start 03/12/19 at 21:00 Multi-Ingred Cream/Lotion/Oil/ Oint (Hydrocerin) 1 marcos PRN DAILY PRN TP DRYNESS OF NARES; Start 03/12/19 at 21:00 Lamotrigine (LaMICtal) 250 mg DAILY PO Last administered on 03/20/19at 08:14; Start 03/14/19 at 09:00; Stop 03/20/19 at 19:38; Status DC Fluvoxamine Maleate (Luvox) 25 mg DAILY PO Last administered on 03/24/19at 09:10; Start 03/17/19 at 09:00 Fluvoxamine Maleate (Luvox) 50 mg DAILY PO ; Start 03/20/19 at 09:00; Stop 03/20/19 at 09:00; Status DC Olanzapine (ZyPREXA ZYDIS) 2.5 mg PRN Q2HR PRN PO PSYCHOSIS; Start 03/19/19 at 17:45 Mirtazapine (Remeron) 7.5 mg QHS PO Last administered on 03/24/19at 19:09; Start 03/20/19 at 21:00 Lamotrigine (LaMICtal) 200 mg DAILY08 PO Last administered on 03/23/19at 10:08; Start 03/21/19 at 08:00; Stop 03/24/19 at 07:59; Status DC Lamotrigine (LaMICtal) 150 mg DAILY08 PO Last administered on 03/24/19at 09:12; Start 03/24/19 at 08:00; Stop 03/27/19 at 07:59 Lamotrigine (LaMICtal) 100 mg DAILY08 PO ; Start 03/28/19 at 08:00 Divalproex Sodium (Depakote Er) 250 mg HS PO Last administered on 03/24/19at 19:09; Start 03/21/19 at 21:00 Active Scripts Active Reported Risperdal (Risperidone) 1 Mg Tablet 1 Mg PO BID Naproxen Sodium 550 Mg Tablet 220 Mg PO BID Clozapine 100 Mg Tablet 350 Mg PO QHS Escitalopram Oxalate 5 Mg Tablet 5 Mg PO DAILY Vitamin D3 (Cholecalciferol (Vitamin D3)) 1,000 Unit Tablet 2,000 Unit PO DAILY Lamotrigine 200 Mg Tablet 200 Mg PO DAILY Myrbetriq (Mirabegron) 25 Mg Tab.er.24h 25 Mg PO DAILY Lactulose 10 Gm/15 Ml Solution 10 Gm PO QID Petroleum Jelly Lip Treatment (Petrolatum,White) 9.9 Gm Jelly..g. 9.9 Gm TP PRN PRN [place] Ultra Strength (Menthol) 1 Each Adh..patch 1 Each TP Q6HRS Tramadol Hcl (Tramadol HCl) 50 Mg Tablet 50 Mg PO PRN Q8HRS PRN Tylenol (Acetaminophen) 325 Mg Tablet 650 Mg PO PRN Q4HRS PRN I have reviewed the current psychotropics carefully including drug interactions. Risk benefit ratio favors no change other than as noted in my dictated progress note. Diagnosis: Problems: (1) Anxiety disorder (2) Impulse control disorder (3) Schizoaffective disorder, chronic condition with acute exacerbation (4) Psychosis, atypical MARIALUISA SHELL MD Mar 24, 2019 22:45
--- NOTE | 2019-03-25 00:58 | PN ---
DATE: 03/24/2019 This late entry from 03/23/2019 covers elements not covered in my initial note. SUBJECTIVE: I met with the patient in the evening. The patient slept 6 and 3/4 hours the previous night. She takes her medications whole, was quite appropriate, the previous night, drowsy during the day, on 03/23. Unaware of the year but aware of the situation and her date of . We will check a CT head as well. REVIEW OF SYSTEMS: Ambulation somewhat impaired. She has not been dropping herself on the floor. Nursing staff is keeping a close watch on this. No cardiovascular, genitourinary, pulmonary, eye system symptoms on review. MENTAL STATUS EXAM: Oriented to herself and situation. Speech has some latency, low in volume, coherent, abstraction fair, computation impaired, language function intact, attention span short. Mood and affect somewhat withdrawn, less paranoid. LABORATORY DATA: Reviewed. IMPRESSION: Unchanged from initial note. PLAN: No change from initial note. MARIALUISA SHELL MD DR: JESSEE/umer JOB#: [id number] / [id number]
[2019-03-25 05:59] VITALS: BP 152/98
[2019-03-25 08:08] LABS: BASO % 1 % (0-3); EOS # 0.4 x10^3/uL (0.0-0.7); EOS % 7 % (0-3); HEMATOCRIT 40.7 % (36.0-47.0); HEMOGLOBIN 13.5 g/dL (12.0-15.5); LYMPH # 1.5 x10^3/uL (1.0-4.8); LYMPH % 30 % (24-48); MEAN CORPUSCULAR HEMOGLOBIN 32 pg (25-35); MEAN CORPUSCULAR HGB CONC 33 g/dL (31-37); MEAN CORPUSCULAR VOLUME 98 fL (79-100); MONO # 0.3 x10^3/uL (0.0-1.1); MONO % 7 % (0-9); NEUT # 2.8 x10^3uL (1.8-7.7); NEUT % 55 % (31-73); PLATELET COUNT 158 x10^3/uL (140-400); RED BLOOD COUNT 4.16 x10^6/uL (3.50-5.40); RED CELL DISTRIBUTION WIDTH 14.5 % (11.5-14.5)
[2019-03-25 08:28] LABS: ALBUMIN 3.4 g/dL (3.4-5.0); ALBUMIN/GLOBULIN RATIO 0.9 (1.0-1.7); ALK PHOS 157 U/L (46-116); ALT (SGPT) 42 U/L (14-59); ANION GAP 9 (6-14); AST (SGOT) 31 U/L (15-37); BLOOD UREA NITROGEN 17 mg/dL (7-20); BUN/CREATININE RATIO 17 (6-20); CALCIUM 9.3 mg/dL (8.5-10.1); CARBON DIOXIDE 27 mmol/L (21-32); CHLORIDE 108 mmol/L (98-107); GFR 68.2; GLUCOSE 91 mg/dL (70-99); SODIUM 144 mmol/L (136-145); TOTAL BILIRUBIN 0.4 mg/dL (0.2-1.0); TOTAL PROTEIN 7.2 g/dL (6.4-8.2)
[2019-03-25 08:34] LABS: VAL ACID 26 mcg/mL (50-100)
[2019-03-25] MEDS: lamoTRIgine 100 MG TABLET. PO SCH (08:54)
[2019-03-25] MEDS: LACTULOSE 20 GM/30 ML SOLUTION. PO SCH ×4 (08:56→19:32)
[2019-03-25] MEDS: NICOTINE 21MG PATCH. TD SCH (08:57)
[2019-03-25] MEDS: CHOLECALCIFEROL (VITAMIN D3) 1,000 UNIT TABLET PO SCH (08:58)
[2019-03-25] MEDS: risperiDONE 1 MG TABLET. PO SCH ×2 (09:02→19:32)
[2019-03-25] MEDS: NAPROXEN 250 MG TABLET PO SCH ×2 (09:03→19:32)
[2019-03-25] MEDS: MIRABEGRON 25 MG TAB.ER.24H PO SCH (09:04)
[2019-03-25 15:45] VITALS: BP 102/76
[2019-03-25] MEDS: MAG HYDROX/AL HYDROX/SIMETH 30 ML ORAL.SUSP PO PRN (15:45)
[2019-03-25] MEDS: cloZAPine 100 MG TABLET PO SCH (19:32)
[2019-03-25] MEDS: MIRTAZAPINE 7.5 MG TABLET. PO SCH (19:32)
[2019-03-25] MEDS: DIVALPROEX ER 500 MG TAB.ER.24H PO SCH (19:32)
--- NOTE | 2019-03-25 23:03 | PDOC ---
Exam Note: Sami Note: Please also refer to the separate dictated note~for this date of service dictated separately.~Patient seen individually. Discussed the patient with Nursing staff reviewed the chart.~Reviewed interim history and current functioning. Reviewed vital signs,~Labs/ Radiology~and current medications noted below. Continue current treatment with the changes noted in the dictated addendum note Assessment: Vital Signs: Vital Signs Date Time Temp Pulse Resp B/P (MAP) Pulse Ox O2 Delivery O2 Flow Rate FiO2 03/25/19 15:45 97.8 97 22 102/76 (85) 99 03/20/19 16:15 Room Air I&O Intake and Output 03/25/19 06:59 Intake Total 840 ml Balance 840 ml Intake Oral 840 ml # Bowel Movements 1 Labs: Laboratory Tests Test 03/25/19 07:20 White Blood Count 5.0 x10^3/uL (4.0-11.0) Red Blood Count 4.16 x10^6/uL (3.50-5.40) Hemoglobin 13.5 g/dL (12.0-15.5) Hematocrit 40.7 % (36.0-47.0) Mean Corpuscular Volume 98 fL (79-100) Mean Corpuscular Hemoglobin 32 pg (25-35) Mean Corpuscular Hemoglobin Concent 33 g/dL (31-37) Red Cell Distribution Width 14.5 % (11.5-14.5) Platelet Count 158 x10^3/uL (140-400) Neutrophils (%) (Auto) 55 % (31-73) Lymphocytes (%) (Auto) 30 % (24-48) Monocytes (%) (Auto) 7 % (0-9) Eosinophils (%) (Auto) 7 % (0-3) H Basophils (%) (Auto) 1 % (0-3) Neutrophils # (Auto) 2.8 x10^3uL (1.8-7.7) Lymphocytes # (Auto) 1.5 x10^3/uL (1.0-4.8) Monocytes # (Auto) 0.3 x10^3/uL (0.0-1.1) Eosinophils # (Auto) 0.4 x10^3/uL (0.0-0.7) Basophils # (Auto) 0.0 x10^3/uL (0.0-0.2) Sodium Level 144 mmol/L (136-145) Potassium Level 4.0 mmol/L (3.5-5.1) Chloride Level 108 mmol/L (98-107) H Carbon Dioxide Level 27 mmol/L (21-32) Anion Gap 9 (6-14) Blood Urea Nitrogen 17 mg/dL (7-20) Creatinine 1.0 mg/dL (0.6-1.0) Estimated GFR (Cockcroft-Gault) 68.2 BUN/Creatinine Ratio 17 (6-20) Glucose Level 91 mg/dL (70-99) Calcium Level 9.3 mg/dL (8.5-10.1) Total Bilirubin 0.4 mg/dL (0.2-1.0) Aspartate Amino Transferase (AST) 31 U/L (15-37) Alanine Aminotransferase (ALT) 42 U/L (14-59) Alkaline Phosphatase 157 U/L (46-116) H Total Protein 7.2 g/dL (6.4-8.2) Albumin 3.4 g/dL (3.4-5.0) Albumin/Globulin Ratio 0.9 (1.0-1.7) L Valproic Acid Level 26 mcg/mL (50-100) L Valproic Acid Last Dose Date 03/24/19 Valproic Acid Last Dose Time 2100 Current Medications: Meds: Current Medications Al Hydroxide/Mg Hydroxide (Mylanta Plus Xs) 15 ml PRN AFTMEALHC PRN PO DYSPEPSIA Last administered on 03/25/19at 15:45; Start 03/12/19 at 16:15 Magnesium Hydroxide (Milk Of Magnesia) 2,400 mg PRN QHS PRN PO CONSTIPATION; Start 03/12/19 at 16:15 Nicotine (Nicoderm Cq 21mg) 1 patch DAILY TD Last administered on 03/25/19at 08:57; Start 03/13/19 at 09:00 Clozapine (Clozaril) 350 mg QHS PO Last administered on 03/25/19at 19:32; Start 03/12/19 at 21:00 Citalopram Hydrobromide (CeleXA) 10 mg DAILY PO Last administered on 03/16/19at 07:32; Start 03/13/19 at 09:00; Stop 03/16/19 at 16:51; Status DC Risperidone (RisperDAL) 1 mg BID PO Last administered on 03/25/19 19:32; Start 03/12/19 at 21:00 Acetaminophen (Tylenol) 650 mg PRN Q4HRS PRN PO PAIN / TEMP; Start 03/12/19 at 20:45 Vitamin D (Vitamin D3) 2,000 unit DAILY PO Last administered on 03/25/19 08:58; Start 03/13/19 at 09:00 Mirabegron (Myrbetriq) 25 mg DAILY PO Last administered on 03/25/19 09:04; Start 03/13/19 at 09:00 Tramadol HCl (Ultram) 50 mg PRN Q8HRS PRN PO PAIN; Start 03/12/19 at 20:45 Lactulose (Lactulose) 10 gm QID PO Last administered on 03/25/19 19:32; Start 03/12/19 at 21:00 Lamotrigine (LaMICtal) 200 mg DAILY PO Last administered on 03/13/19 09:20; Start 03/13/19 at 09:00; Stop 03/13/19 at 17:33; Status DC Multi-Ingredient Ointment (Analgesic [place]) 1 marcos PRN Q6HRS PRN TP MUSCLE PAIN; Start 03/12/19 at 21:00 Naproxen (Naprosyn) 250 mg BID PO Last administered on 03/25/19 19:32; Start 03/12/19 at 21:00 Multi-Ingred Cream/Lotion/Oil/ Oint (Hydrocerin) 1 marcos PRN DAILY PRN TP DRYNESS OF NARES; Start 03/12/19 at 21:00 Lamotrigine (LaMICtal) 250 mg DAILY PO Last administered on 03/20/19 08:14; Start 03/14/19 at 09:00; Stop 03/20/19 at 19:38; Status DC Fluvoxamine Maleate (Luvox) 25 mg DAILY PO Last administered on 03/25/19 08:56; Start 03/17/19 at 09:00 Fluvoxamine Maleate (Luvox) 50 mg DAILY PO ; Start 03/20/19 at 09:00; Stop 9 at 09:00; Status DC Olanzapine (ZyPREXA ZYDIS) 2.5 mg PRN Q2HR PRN PO PSYCHOSIS; Start 03/19/19 at 17:45 Mirtazapine (Remeron) 7.5 mg QHS PO Last administered on 03/25/19at 19:32; Start 03/20/19 at 21:00 Lamotrigine (LaMICtal) 200 mg DAILY08 PO Last administered on 03/23/19at 10:08; Start 03/21/19 at 08:00; Stop 03/24/19 at 07:59; Status DC Lamotrigine (LaMICtal) 150 mg DAILY08 PO Last administered on 03/25/19at 08:54; Start 03/24/19 at 08:00; Stop 03/27/19 at 07:59 Lamotrigine (LaMICtal) 100 mg DAILY08 PO ; Start 03/28/19 at 08:00 Divalproex Sodium (Depakote Er) 250 mg HS PO Last administered on 03/24/19at 19:09; Start 03/21/19 at 21:00; Stop 03/25/19 at 16:50; Status DC Divalproex Sodium (Depakote Er) 500 mg QHS PO Last administered on 03/25/19at 19:32; Start 03/25/19 at 21:00 Active Scripts Active Reported Risperdal (Risperidone) 1 Mg Tablet 1 Mg PO BID Naproxen Sodium 550 Mg Tablet 220 Mg PO BID Clozapine 100 Mg Tablet 350 Mg PO QHS Escitalopram Oxalate 5 Mg Tablet 5 Mg PO DAILY Vitamin D3 (Cholecalciferol (Vitamin D3)) 1,000 Unit Tablet 2,000 Unit PO DAILY Lamotrigine 200 Mg Tablet 200 Mg PO DAILY Myrbetriq (Mirabegron) 25 Mg Tab.er.24h 25 Mg PO DAILY Lactulose 10 Gm/15 Ml Solution 10 Gm PO QID Petroleum Jelly Lip Treatment (Petrolatum,White) 9.9 Gm Jelly..g. 9.9 Gm TP PRN PRN [place] Ultra Strength (Menthol) 1 Each Adh..patch 1 Each TP Q6HRS Tramadol Hcl (Tramadol HCl) 50 Mg Tablet 50 Mg PO PRN Q8HRS PRN Tylenol (Acetaminophen) 325 Mg Tablet 650 Mg PO PRN Q4HRS PRN I have reviewed the current psychotropics carefully including drug interactions. Risk benefit ratio favors no change other than as noted in my dictated progress note. Diagnosis: Problems: (1) Anxiety disorder (2) Impulse control disorder (3) Schizoaffective disorder, chronic condition with acute exacerbation (4) Psychosis, atypical MARIALUISA HSELL MD Mar 25, 2019 23:03
--- NOTE | 2019-03-26 02:55 | PN ---
DATE: 03/24/2019 PSYCHIATRIC PROGRESS NOTE This late entry of 03/24/2019 covers elements, not covered in my initial note. SUBJECTIVE: I met with the patient in the evening. The patient slept 6-3/4 hours previous night. She is compliant with medications, cooperative. She has limited insight into dropping herself on the floor and we addressed this individually and requirements of the shelter prior to her returning there are that she is not dropping herself on the floor again and again. She is on the privilege to keep her radio when she does not drop herself on the floor. She is sitting in a low chair almost on the floor, staff intervened. We will check CBC, CMP, and valproic acid level in the morning of 03/25/2019. REVIEW OF SYSTEMS: Ambulation impaired, in wheelchair. No CV, , pulmonary, eye, ENT system symptoms on review. Reliability varies. MENTAL STATUS EXAM: Oriented to herself and situation. Speech is low in rate and rhythm, low in volume, coherent, abstraction fair, computation impaired, language function intact, attention span short. Mood and affect remain somewhat anxious, labile at times. LABORATORY DATA: Reviewed. IMPRESSION: Unchanged from my initial note. PLAN: No change from initial note. MARIALUISA SHELL MD DR: JESSEE/umer JOB#: [id number] / [id number]
[2019-03-26 06:11] VITALS: BP 134/90
[2019-03-26] MEDS: NICOTINE 21MG PATCH. TD SCH (08:36)
[2019-03-26] MEDS: NAPROXEN 250 MG TABLET PO SCH ×2 (08:37→19:26)
[2019-03-26] MEDS: CHOLECALCIFEROL (VITAMIN D3) 1,000 UNIT TABLET PO SCH (08:38)
[2019-03-26] MEDS: risperiDONE 1 MG TABLET. PO SCH ×2 (08:38→19:22)
[2019-03-26] MEDS: lamoTRIgine 100 MG TABLET. PO SCH (08:38)
[2019-03-26] MEDS: LACTULOSE 20 GM/30 ML SOLUTION. PO SCH ×4 (08:39→19:22)
[2019-03-26] MEDS: MIRABEGRON 25 MG TAB.ER.24H PO SCH (08:39)
[2019-03-26 16:04] VITALS: BP 105/67
[2019-03-26] MEDS: MAG HYDROX/AL HYDROX/SIMETH 30 ML ORAL.SUSP PO PRN (19:22)
[2019-03-26] MEDS: cloZAPine 100 MG TABLET PO SCH (19:25)
[2019-03-26] MEDS: MIRTAZAPINE 7.5 MG TABLET. PO SCH (19:26)
[2019-03-26] MEDS: DIVALPROEX ER 500 MG TAB.ER.24H PO SCH (19:26)
--- NOTE | 2019-03-26 23:07 | PDOC ---
Exam Note: Sami Note: Please also refer to the separate dictated note~for this date of service dictated separately.~Patient seen individually. Discussed the patient with Nursing staff reviewed the chart.~Reviewed interim history and current functioning. Reviewed vital signs,~Labs/ Radiology~and current medications noted below. Continue current treatment with the changes noted in the dictated addendum note Assessment: Vital Signs: Vital Signs Date Time Temp Pulse Resp B/P (MAP) Pulse Ox O2 Delivery O2 Flow Rate FiO2 03/26/19 16:04 98.0 104 22 105/67 (80) 96 03/20/19 16:15 Room Air I&O Intake and Output 03/26/19 07:00 Intake Total 840 ml Balance 840 ml Intake Oral 840 ml Current Medications: Meds: Current Medications Al Hydroxide/Mg Hydroxide (Mylanta Plus Xs) 15 ml PRN AFTMEALHC PRN PO DYSPE PSIA Last administered on 03/26/19 19:22; Start 03/12/19 at 16:15 Magnesium Hydroxide (Milk Of Magnesia) 2,400 mg PRN QHS PRN PO CONSTIPATION; Start 03/12/19 at 16:15 Nicotine (Nicoderm Cq 21mg) 1 patch DAILY TD Last administered on 03/26/19 08:36; Start 03/13/19 at 09:00 Clozapine (Clozaril) 350 mg QHS PO Last administered on 03/26/19 19:25; Start 03/12/19 at 21:00 Citalopram Hydrobromide (CeleXA) 10 mg DAILY PO Last administered on 03/16/19 07:32; Start 03/13/19 at 09:00; Stop 03/16/19 at 16:51; Status DC Risperidone (RisperDAL) 1 mg BID PO Last administered on 03/26/19 19:22; Start 03/12/19 at 21:00 Acetaminophen (Tylenol) 650 mg PRN Q4HRS PRN PO PAIN / TEMP Last administered on 03/26/19 20:33; Start 03/12/19 at 20:45 Vitamin D (Vitamin D3) 2,000 unit DAILY PO Last administered on 03/26/19 08:38; Start 03/13/19 at 09:00 Mirabegron (Myrbetriq) 25 mg DAILY PO Last administered on 03/26/19 08:39; Start 03/13/19 at 09:00 Tramadol HCl (Ultram) 50 mg PRN Q8HRS PRN PO PAIN; Start 03/12/19 at 20:45 Lactulose (Lactulose) 10 gm QID PO Last administered on 03/26/19 19:22; Start 03/12/19 at 21:00 Lamotrigine (LaMICtal) 200 mg DAILY PO Last administered on 03/13/19 09:20; Start 03/13/19 at 09:00; Stop 03/13/19 at 17:33; Status DC Multi-Ingredient Ointment (Analgesic [place]) 1 marcos PRN Q6HRS PRN TP MUSCLE PAIN; Start 03/12/19 at 21:00 Naproxen (Naprosyn) 250 mg BID PO Last administered on 03/26/19 19:26; Start 03/12/19 at 21:00 Multi-Ingred Cream/Lotion/Oil/ Oint (Hydrocerin) 1 marcos PRN DAILY PRN TP DRYNESS OF NARES; Start 03/12/19 at 21:00 Lamotrigine (LaMICtal) 250 mg DAILY PO Last administered on 03/20/19 08:14; Start 03/14/19 at 09:00; Stop 03/20/19 at 19:38; Status DC Fluvoxamine Maleate (Luvox) 25 mg DAILY PO Last administered on 03/26/19 08:38 ; Start 03/17/19 at 09:00 Fluvoxamine Maleate (Luvox) 50 mg DAILY PO ; Start 03/20/19 at 09:00; Stop 03/20/19 at 09:00; Status DC Olanzapine (ZyPREXA ZYDIS) 2.5 mg PRN Q2HR PRN PO PSYCHOSIS; Start 03/19/19 at 17:45 Mirtazapine (Remeron) 7.5 mg QHS PO Last administered on 03/26/19 19:26; Start 03/20/19 at 21:00 Lamotrigine (LaMICtal) 200 mg DAILY08 PO Last administered on 03/23/19at 10:08; Start 03/21/19 at 08:00; Stop 03/24/19 at 07:59; Status DC Lamotrigine (LaMICtal) 150 mg DAILY08 PO Last administered on 03/26/19at 08:38; Start 03/24/19 at 08:00; Stop 03/27/19 at 07:59 Lamotrigine (LaMICtal) 100 mg DAILY08 PO ; Start 03/28/19 at 08:00 Divalproex Sodium (Depakote Er) 250 mg HS PO Last administered on 03/24/19at 19:09; Start 03/21/19 at 21:00; Stop 03/25/19 at 16:50; Status DC Divalproex Sodium (Depakote Er) 500 mg QHS PO Last administered on 03/26/19at 19:26; Start 03/25/19 at 21:00 Active Scripts Active Reported Risperdal (Risperidone) 1 Mg Tablet 1 Mg PO BID Naproxen Sodium 550 Mg Tablet 220 Mg PO BID Clozapine 100 Mg Tablet 350 Mg PO QHS Escitalopram Oxalate 5 Mg Tablet 5 Mg PO DAILY Vitamin D3 (Cholecalciferol (Vitamin D3)) 1,000 Unit Tablet 2,000 Unit PO DAILY Lamotrigine 200 Mg Tablet 200 Mg PO DAILY Myrbetriq (Mirabegron) 25 Mg Tab.er.24h 25 Mg PO DAILY Lactulose 10 Gm/15 Ml Solution 10 Gm PO QID Petroleum Jelly Lip Treatment (Petrolatum,White) 9.9 Gm Jelly..g. 9.9 Gm TP PRN PRN [place] Ultra Strength (Menthol) 1 Each Adh..patch 1 Each TP Q6HRS Tramadol Hcl (Tramadol HCl) 50 Mg Tablet 50 Mg PO PRN Q8HRS PRN Tylenol (Acetaminophen) 325 Mg Tablet 650 Mg PO PRN Q4HRS PRN I have reviewed the current psychotropics carefully including drug interactions. Risk benefit ratio favors no change other than as noted in my dictated progress note. Diagnosis: Problems: (1) Medical clearance for psychiatric admission (2) Anxiety disorder (3) Impulse control disorder (4) Schizoaffective disorder, chronic condition with acute exacerbation (5) Psychosis, atypical MARIALUISA SHELL MD Mar 26, 2019 23:07
[2019-03-27 06:39] VITALS: BP 134/81
[2019-03-27] MEDS: MIRABEGRON 25 MG TAB.ER.24H PO SCH (07:38)
[2019-03-27] MEDS: CHOLECALCIFEROL (VITAMIN D3) 1,000 UNIT TABLET PO SCH (07:39)
[2019-03-27] MEDS: NAPROXEN 250 MG TABLET PO SCH ×2 (07:39→21:16)
[2019-03-27] MEDS: risperiDONE 1 MG TABLET. PO SCH ×2 (07:39→21:16)
[2019-03-27] MEDS: LACTULOSE 20 GM/30 ML SOLUTION. PO SCH ×4 (07:39→21:00)
[2019-03-27] MEDS: NICOTINE 21MG PATCH. TD SCH (07:46)
[2019-03-27] MEDS: lamoTRIgine 100 MG TABLET. PO SCH (07:59)
[2019-03-27 15:23] VITALS: BP 146/90
--- NOTE | 2019-03-27 17:21 | PN ---
DATE: 03/25/2019 PSYCHIATRIC PROGRESS NOTE This late entry 03/25/2019 covers elements not covered in my initial note. SUBJECTIVE: I met with the patient in the evening. The patient slept 6-3/4 hours previous night. She has been putting herself on the floor again specifically when the [employer] LEADER took her to the bathroom. Valproic acid level is 26. Ammonia unremarkable. AST 31, ALT 42. REVIEW OF SYSTEMS: Ambulation impaired, in wheelchair. No CV, , pulmonary, eye system symptoms on review. MENTAL STATUS EXAM: Oriented to herself and situation. Speech has some latency, coherent, can be loud at times. Abstraction fair, computation impaired, language function intact, attention span short. Short term memory is impaired. Continues to be somewhat obsessive and paranoid. LABORATORY DATA: Reviewed. IMPRESSION: Schizoaffective disorder, bipolar type; anxiety disorder, unspecified; obsessive-compulsive disorder. PLAN: Valproic acid level is subtherapeutic on Depakote ER 250 mg p.o. at bedtime at 26 and we will increase it to 500 mg p.o. at bedtime. Check CBC, CMP, valproic acid level, ammonia level in 3 days. Continue Luvox 25 mg daily, clozapine 350 mg daily and lamotrigine is being tapered to be stopped. MAN Marek SHELL MD DR: JESSEE/umer JOB#: [id number] / [id number]
[2019-03-27] MEDS: MIRTAZAPINE 7.5 MG TABLET. PO SCH (21:16)
[2019-03-27] MEDS: cloZAPine 100 MG TABLET PO SCH (21:16)
[2019-03-27] MEDS: DIVALPROEX ER 500 MG TAB.ER.24H PO SCH (21:16)
--- NOTE | 2019-03-27 22:44 | PDOC ---
Exam Note: Sami Note: Please also refer to the separate dictated note~for this date of service dictated separately.~Patient seen individually. Discussed the patient with Nursing staff reviewed the chart.~Reviewed interim history and current functioning. Reviewed vital signs,~Labs/ Radiology~and current medications noted below. Continue current treatment with the changes noted in the dictated addendum note Assessment: Vital Signs/I&O: Vital Signs Date Time Temp Pulse Resp B/P (MAP) Pulse Ox O2 Delivery O2 Flow Rate FiO2 03/27/19 15:23 98.2 69 18 146/90 (108) 99 I & O 03/26/19 03/26/19 03/27/19 15:00 23:00 07:00 Intake Total 720 ml 600 ml Balance 720 ml 600 ml Current Medications: Meds: Current Medications Medications (Trade) Dose Ordered Sig/Lynn Route PRN Reason Start Time Stop Time Status Last Admin Dose Admin Lamotrigine (LaMICtal) 100 mg DAILY08 PO 03/27/19 08:00 03/27/19 07:59 I have reviewed the current psychotropics carefully including drug interactions. Risk benefit ratio favors no change other than as noted in my dictated progress note. Diagnosis: Problems: (1) Anxiety disorder (2) Impulse control disorder (3) Schizoaffective disorder, chronic condition with acute exacerbation (4) Psychosis, atypical MARIALUISA SHELL MD Mar 27, 2019 22:44
--- NOTE | 2019-03-28 00:19 | PN ---
DATE: 03/27/2019 PSYCHIATRIC PROGRESS NOTE This late entry 03/26/2019 covers elements not covered in my initial note. SUBJECTIVE: I met with the patient in the evening. The patient slept 7-3/4 hours previous night. She has spent more time in the day room, not putting herself on the floor. REVIEW OF SYSTEMS: Ambulation impaired, in wheelchair. No CV, , pulmonary, eye, ENT system symptoms on review. MENTAL STATUS EXAM: Oriented to herself and situation. Speech has some latency, coherent. Abstraction fair, computation impaired, language function intact, attention span short. Mood and affect remains somewhat anxious, at times labile, but improved. LABORATORY DATA: Reviewed. IMPRESSION: Unchanged from initial note. PLAN: No change from initial note. We will continue Luvox and Clozaril. Depakote is being gradually increased in place of the lamotrigine. Maintain Remeron 7.5 mg at bedtime. MAN Marek SHELL MD DR: JESSEE/umer JOB#: [id number] / [id number]
[2019-03-28] MEDS ORDERED: DIVA500T4 PO (03:52)
[2019-03-28] MEDS ORDERED: MAG30ORA2 PO (03:53)
[2019-03-28] MEDS ORDERED: MAGN400O7 PO (03:54)
[2019-03-28] MEDS ORDERED: MIRT15TA3 PO (03:56)
[2019-03-28] MEDS ORDERED: NICO1PAT21 TD (04:01)
[2019-03-28] MEDS ORDERED: OLAN5TAB5 PO (04:02)
[2019-03-28] MEDS ORDERED: FLUV25TA PO (04:03)
[2019-03-28] MEDS ORDERED: NAPR-683 PO (04:05)
[2019-03-28 05:44] VITALS: BP 91/65
[2019-03-28 07:44] LABS: BASO % 1 % (0-3); EOS # 0.3 x10^3/uL (0.0-0.7); EOS % 6 % (0-3); HEMATOCRIT 39.3 % (36.0-47.0); LYMPH # 1.3 x10^3/uL (1.0-4.8); LYMPH % 27 % (24-48); MEAN CORPUSCULAR HEMOGLOBIN 32 pg (25-35); MEAN CORPUSCULAR HGB CONC 33 g/dL (31-37); MEAN CORPUSCULAR VOLUME 97 fL (79-100); MONO # 0.4 x10^3/uL (0.0-1.1); MONO % 8 % (0-9); NEUT # 2.9 x10^3uL (1.8-7.7); NEUT % 59 % (31-73); PLATELET COUNT 141 x10^3/uL (140-400); RED BLOOD COUNT 4.04 x10^6/uL (3.50-5.40); RED CELL DISTRIBUTION WIDTH 14.6 % (11.5-14.5); WHITE BLOOD COUNT 4.9 x10^3/uL (4.0-11.0)
[2019-03-28 08:02] LABS: ALBUMIN 3.3 g/dL (3.4-5.0); ALBUMIN/GLOBULIN RATIO 0.9 (1.0-1.7); ALK PHOS 154 U/L (46-116); ALT (SGPT) 36 U/L (14-59); ANION GAP 8 (6-14); AST (SGOT) 27 U/L (15-37); BLOOD UREA NITROGEN 18 mg/dL (7-20); BUN/CREATININE RATIO 16 (6-20); CALCIUM 9.1 mg/dL (8.5-10.1); CARBON DIOXIDE 29 mmol/L (21-32); CHLORIDE 104 mmol/L (98-107); CREATININE 1.1 mg/dL (0.6-1.0); GFR 61.1; GLUCOSE 99 mg/dL (70-99); POTASSIUM 4.1 mmol/L (3.5-5.1); SODIUM 141 mmol/L (136-145); TOTAL BILIRUBIN 0.5 mg/dL (0.2-1.0)
[2019-03-28] MEDS: NAPROXEN 250 MG TABLET PO SCH ×2 (08:02→20:02)
[2019-03-28] MEDS: NICOTINE 21MG PATCH. TD SCH (08:02)
[2019-03-28 08:03] LABS: VAL ACID 46 mcg/mL (50-100)
[2019-03-28] MEDS: lamoTRIgine 100 MG TABLET. PO SCH (08:03)
[2019-03-28] MEDS: LACTULOSE 20 GM/30 ML SOLUTION. PO SCH ×5 (08:03→21:38)
[2019-03-28] MEDS: MIRABEGRON 25 MG TAB.ER.24H PO SCH (08:03)
[2019-03-28] MEDS: CHOLECALCIFEROL (VITAMIN D3) 1,000 UNIT TABLET PO SCH (08:03)
[2019-03-28] MEDS: risperiDONE 1 MG TABLET. PO SCH ×2 (08:03→20:02)
[2019-03-28 15:45] VITALS: BP 140/90
[2019-03-28] MEDS: MIRTAZAPINE 7.5 MG TABLET. PO SCH (20:02)
[2019-03-28] MEDS: DIVALPROEX ER 500 MG TAB.ER.24H PO SCH (20:02)
[2019-03-28] MEDS: cloZAPine 100 MG TABLET PO SCH (20:03)
--- NOTE | 2019-03-28 22:53 | PDOC ---
Exam Note: Sami Note: Please also refer to the separate dictated note~for this date of service dictated separately.~Patient seen individually. Discussed the patient with Nursing staff reviewed the chart.~Reviewed interim history and current functioning. Reviewed vital signs,~Labs/ Radiology~and current medications noted below. Continue current treatment with the changes noted in the dictated addendum note Assessment: Vital Signs/I&O: Vital Signs Date Time Temp Pulse Resp B/P (MAP) Pulse Ox O2 Delivery O2 Flow Rate FiO2 03/28/19 15:45 97.7 100 20 140/90 (107) 100 03/28/19 05:44 Room Air I & O 03/27/19 03/27/19 03/28/19 14:59 22:59 06:59 Intake Total 600 ml 120 ml 120 ml Balance 600 ml 120 ml 120 ml Labs: Laboratory Tests Test 03/28/19 07:00 03/28/19 19:27 White Blood Count 4.9 x10^3/uL (4.0-11.0) Red Blood Count 4.04 x10^6/uL (3.50-5.40) Hemoglobin 13.0 g/dL (12.0-15.5) Hematocrit 39.3 % (36.0-47.0) Mean Corpuscular Volume 97 fL (79-100) Mean Corpuscular Hemoglobin 32 pg (25-35) Mean Corpuscular Hemoglobin Concent 33 g/dL (31-37) Red Cell Distribution Width 14.6 % (11.5-14.5) H Platelet Count 141 x10^3/uL (140-400) Neutrophils (%) (Auto) 59 % (31-73) Lymphocytes (%) (Auto) 27 % (24-48) Monocytes (%) (Auto) 8 % (0-9) Eosinophils (%) (Auto) 6 % (0-3) H Basophils (%) (Auto) 1 % (0-3) Neutrophils # (Auto) 2.9 x10^3uL (1.8-7.7) Lymphocytes # (Auto) 1.3 x10^3/uL (1.0-4.8) Monocytes # (Auto) 0.4 x10^3/uL (0.0-1.1) Eosinophils # (Auto) 0.3 x10^3/uL (0.0-0.7) Basophils # (Auto) 0.0 x10^3/uL (0.0-0.2) Sodium Level 141 mmol/L (136-145) Potassium Level 4.1 mmol/L (3.5-5.1) Chloride Level 104 mmol/L (98-107) Carbon Dioxide Level 29 mmol/L (21-32) Anion Gap 8 (6-14) Blood Urea Nitrogen 18 mg/dL (7-20) Creatinine 1.1 mg/dL (0.6-1.0) H Estimated GFR (Cockcroft-Gault) 61.1 BUN/Creatinine Ratio 16 (6-20) Glucose Level 99 mg/dL (70-99) Calcium Level 9.1 mg/dL (8.5-10.1) Total Bilirubin 0.5 mg/dL (0.2-1.0) Aspartate Amino Transferase (AST) 27 U/L (15-37) Alanine Aminotransferase (ALT) 36 U/L (14-59) Alkaline Phosphatase 154 U/L (46-116) H Ammonia 29 mcmol/L (11-34) Total Protein 7.0 g/dL (6.4-8.2) Albumin 3.3 g/dL (3.4-5.0) L Albumin/Globulin Ratio 0.9 (1.0-1.7) L Valproic Acid Level 46 mcg/mL (50-100) L Valproic Acid Last Dose Date 03/27/2019 Valproic Acid Last Dose Time 2100 Glucose (Fingerstick) 110 mg/dL (70-99) H Current Medications: I have reviewed the current psychotropics carefully including drug interactions. Risk benefit ratio favors no change other than as noted in my dictated progress note. Diagnosis: Problems: (1) Medical clearance for psychiatric admission (2) Anxiety disorder (3) Impulse control disorder (4) Schizoaffective disorder, chronic condition with acute exacerbation (5) Psychosis, atypical MARIALUISA SHELL MD Mar 28, 2019 22:53
[2019-03-29 05:47] VITALS: BP 153/74
[2019-03-29] MEDS: MIRABEGRON 25 MG TAB.ER.24H PO SCH (07:59)
[2019-03-29] MEDS: risperiDONE 1 MG TABLET. PO SCH ×2 (07:59→19:44)
[2019-03-29] MEDS: lamoTRIgine 100 MG TABLET. PO SCH (07:59)
[2019-03-29] MEDS: NAPROXEN 250 MG TABLET PO SCH ×2 (07:59→19:47)
[2019-03-29] MEDS: NICOTINE 21MG PATCH. TD SCH (07:59)
[2019-03-29] MEDS: CHOLECALCIFEROL (VITAMIN D3) 1,000 UNIT TABLET PO SCH (07:59)
[2019-03-29] MEDS: LACTULOSE 20 GM/30 ML SOLUTION. PO SCH ×4 (08:00→19:44)
[2019-03-29 15:31] VITALS: BP 101/63
[2019-03-29] MEDS: DIVALPROEX ER 500 MG TAB.ER.24H PO SCH (19:39)
[2019-03-29] MEDS: cloZAPine 100 MG TABLET PO SCH (19:39)
[2019-03-29] MEDS: MIRTAZAPINE 7.5 MG TABLET. PO SCH (19:47)
--- NOTE | 2019-03-29 21:59 | PN ---
DATE: 03/27/2019 PSYCHIATRIC PROGRESS NOTE This late entry of 03/27 covers elements not covered in my initial note. HISTORY OF PRESENT ILLNESS: I met with the patient in the evening. The patient slept 6-1/4 hours previous night. She was somewhat anxious, playing possum per nursing report previous night. REVIEW OF SYSTEMS: Ambulation impaired, in wheelchair walker. No CV, , pulmonary, eye, ENT system symptoms on review. Reliability varies. MENTAL STATUS EXAM: Oriented to herself and situation. Speech is coherent, has some latency, can be loud. Abstraction fair, computation impaired, language function intact. Mood and affect somewhat anxious, labile. LABORATORY DATA: Reviewed. IMPRESSION: Unchanged from initial note. PLAN: No change from initial note. MAN Marek SHELL MD DR: JESSEE/umer JOB#: [id number] / [id number]
--- NOTE | 2019-03-29 22:22 | PDOC ---
Exam Note: Sami Note: Please also refer to the separate dictated note~for this date of service dictated separately.~Patient seen individually. Discussed the patient with Nursing staff reviewed the chart.~Reviewed interim history and current functioning. Reviewed vital signs,~Labs/ Radiology~and current medications noted below. Continue current treatment with the changes noted in the dictated addendum note Assessment: Vital Signs/I&O: Vital Signs Date Time Temp Pulse Resp B/P (MAP) Pulse Ox O2 Delivery O2 Flow Rate FiO2 03/29/19 15:31 97.2 109 16 101/63 (76) 99 03/28/19 05:44 Room Air I & O 03/28/19 03/28/19 03/29/19 15:00 23:00 07:00 Intake Total 840 ml 240 ml 360 ml Balance 840 ml 240 ml 360 ml Current Medications: Meds: Current Medications Medications (Trade) Dose Ordered Sig/Lynn Route PRN Reason Start Time Stop Time Status Last Admin Dose Admin Divalproex Sodium (Depakote Er) 750 mg QHS PO 03/29/19 21:00 03/29/19 19:39 I have reviewed the current psychotropics carefully including drug interactions. Risk benefit ratio favors no change other than as noted in my dictated progress note. Diagnosis: Problems: (1) Anxiety disorder (2) Impulse control disorder (3) Schizoaffective disorder, chronic condition with acute exacerbation (4) Psychosis, atypical MARIALUISA SHELL MD Mar 29, 2019 22:22
[2019-03-30 06:08] VITALS: BP 147/74
[2019-03-30 06:47] LABS: BASO # 0.1 x10^3/uL (0.0-0.2); BASO % 1 % (0-3); EOS # 0.3 x10^3/uL (0.0-0.7); EOS % 7 % (0-3); HEMATOCRIT 38.4 % (36.0-47.0); HEMOGLOBIN 12.7 g/dL (12.0-15.5); LYMPH # 1.5 x10^3/uL (1.0-4.8); LYMPH % 30 % (24-48); MEAN CORPUSCULAR HEMOGLOBIN 32 pg (25-35); MEAN CORPUSCULAR HGB CONC 33 g/dL (31-37); MEAN CORPUSCULAR VOLUME 97 fL (79-100); MONO # 0.4 x10^3/uL (0.0-1.1); MONO % 8 % (0-9); NEUT # 2.7 x10^3uL (1.8-7.7); NEUT % 54 % (31-73); PLATELET COUNT 130 x10^3/uL (140-400); RED BLOOD COUNT 3.95 x10^6/uL (3.50-5.40); RED CELL DISTRIBUTION WIDTH 14.6 % (11.5-14.5)
[2019-03-30 07:01] LABS: ALBUMIN 2.9 g/dL (3.4-5.0); ALBUMIN/GLOBULIN RATIO 0.8 (1.0-1.7); CREATININE 1.1 mg/dL (0.6-1.0); GFR 61.1; POTASSIUM 4.3 mmol/L (3.5-5.1); TOTAL BILIRUBIN 0.4 mg/dL (0.2-1.0); TOTAL PROTEIN 6.5 g/dL (6.4-8.2)
[2019-03-30] MEDS: CHOLECALCIFEROL (VITAMIN D3) 1,000 UNIT TABLET PO SCH (10:13)
[2019-03-30] MEDS: LACTULOSE 20 GM/30 ML SOLUTION. PO SCH ×4 (10:14→19:21)
[2019-03-30] MEDS: risperiDONE 1 MG TABLET. PO SCH ×2 (10:14→19:21)
[2019-03-30] MEDS: NAPROXEN 250 MG TABLET PO SCH ×2 (10:14→19:21)
[2019-03-30] MEDS: NICOTINE 21MG PATCH. TD SCH (10:15)
[2019-03-30] MEDS: lamoTRIgine 100 MG TABLET. PO SCH (10:17)
[2019-03-30] MEDS: MIRABEGRON 25 MG TAB.ER.24H PO SCH (10:18)
[2019-03-30 16:08] VITALS: BP 104/71
[2019-03-30] MEDS: MIRTAZAPINE 7.5 MG TABLET. PO SCH (19:21)
[2019-03-30] MEDS: DIVALPROEX ER 500 MG TAB.ER.24H PO SCH (19:21)
[2019-03-30] MEDS: cloZAPine 100 MG TABLET PO SCH (19:22)
--- NOTE | 2019-03-30 22:37 | PDOC ---
Exam Note: Sami Note: Please also refer to the separate dictated note~for this date of service dictated separately.~Patient seen individually. Discussed the patient with Nursing staff reviewed the chart.~Reviewed interim history and current functioning. Reviewed vital signs,~Labs/ Radiology~and current medications noted below. Continue current treatment with the changes noted in the dictated addendum note Assessment: Vital Signs/I&O: Vital Signs Date Time Temp Pulse Resp B/P (MAP) Pulse Ox O2 Delivery O2 Flow Rate FiO2 03/30/19 16:08 97.5 100 18 104/71 (82) 96 03/28/19 05:44 Room Air I & O 03/29/19 03/29/19 03/30/19 14:59 22:59 06:59 Intake Total 480 ml 240 ml 360 ml Balance 480 ml 240 ml 360 ml Labs: Laboratory Tests Test 03/30/19 06:12 White Blood Count 5.0 x10^3/uL (4.0-11.0) Red Blood Count 3.95 x10^6/uL (3.50-5.40) Hemoglobin 12.7 g/dL (12.0-15.5) Hematocrit 38.4 % (36.0-47.0) Mean Corpuscular Volume 97 fL (79-100) Mean Corpuscular Hemoglobin 32 pg (25-35) Mean Corpuscular Hemoglobin Concent 33 g/dL (31-37) Red Cell Distribution Width 14.6 % (11.5-14.5) H Platelet Count 130 x10^3/uL (140-400) L Neutrophils (%) (Auto) 54 % (31-73) Lymphocytes (%) (Auto) 30 % (24-48) Monocytes (%) (Auto) 8 % (0-9) Eosinophils (%) (Auto) 7 % (0-3) H Basophils (%) (Auto) 1 % (0-3) Neutrophils # (Auto) 2.7 x10^3uL (1.8-7.7) Lymphocytes # (Auto) 1.5 x10^3/uL (1.0-4.8) Monocytes # (Auto) 0.4 x10^3/uL (0.0-1.1) Eosinophils # (Auto) 0.3 x10^3/uL (0.0-0.7) Basophils # (Auto) 0.1 x10^3/uL (0.0-0.2) Sodium Level 145 mmol/L (136-145) Potassium Level 4.3 mmol/L (3.5-5.1) Chloride Level 106 mmol/L (98-107) Carbon Dioxide Level 32 mmol/L (21-32) Anion Gap 7 (6-14) Blood Urea Nitrogen 14 mg/dL (7-20) Creatinine 1.1 mg/dL (0.6-1.0) H Estimated GFR (Cockcroft-Gault) 61.1 BUN/Creatinine Ratio 13 (6-20) Glucose Level 86 mg/dL (70-99) Calcium Level 9.0 mg/dL (8.5-10.1) Total Bilirubin 0.4 mg/dL (0.2-1.0) Aspartate Amino Transferase (AST) 26 U/L (15-37) Alanine Aminotransferase (ALT) 33 U/L (14-59) Alkaline Phosphatase 143 U/L (46-116) H Total Protein 6.5 g/dL (6.4-8.2) Albumin 2.9 g/dL (3.4-5.0) L Albumin/Globulin Ratio 0.8 (1.0-1.7) L Current Medications: Meds: Current Medications Medications (Trade) Dose Ordered Sig/Lynn Route PRN Reason Start Time Stop Time Status Last Admin Dose Admin Lamotrigine (LaMICtal) 50 mg DAILY08 PO 03/30/19 08:00 04/01/19 11:00 03/30/19 10:17 I have reviewed the current psychotropics carefully including drug interactions. Risk benefit ratio favors no change other than as noted in my dictated progress note. Diagnosis: Problems: (1) Anxiety disorder (2) Impulse control disorder (3) Schizoaffective disorder, chronic condition with acute exacerbation (4) Psychosis, atypical MARIALUISA SHELL MD Mar 30, 2019 22:37
--- NOTE | 2019-03-30 23:22 | PN ---
DATE: 03/28/2019 PSYCHIATRIC PROGRESS NOTE This is a late entry, 03/28/2019, covers elements not covered in my initial note. SUBJECTIVE: I met with the patient in the evening. The patient slept 5-3/4 hours previous night. She has been irritable x 1 regarding not getting a radio when she wanted to get it. She has not dropped herself on the floor. REVIEW OF SYSTEMS: Ambulation impaired, in wheelchair. No CV, , pulmonary, eye, ENT system symptoms on review. MENTAL STATUS EXAM: Oriented to herself and situation. Speech has some latency, coherent, can be loud at times. Abstraction fair, computation impaired, language function intact, attention span short. Mood and affect remain somewhat anxious, labile, but improved. LABORATORY DATA: Reviewed. IMPRESSION: Unchanged from initial note. PLAN: No change from initial note. MAN Marek SHELL MD DR: JESSEE/umer JOB#: [id number] / [id number]
--- NOTE | 2019-03-31 01:10 | PN ---
DATE: 03/29/2019 PSYCHIATRIC PROGRESS NOTE This is a late entry 03/29/2019, covers the elements not covered in my initial note. SUBJECTIVE: I met with the patient in the evening. The patient slept 6-3/4 hours previous night. Per nursing report, she was playing possum in the morning, slept through lunch time, not very animated at breakfast time. Previous evening, she had taken her shirt off in her room, did redirect. REVIEW OF SYSTEMS: Ambulation impaired, in wheelchair. No CV, , pulmonary, eye system symptoms on review. MENTAL STATUS EXAM: Oriented to herself and situation. Speech is coherent, less pressured. Abstraction fair, computation impaired, language function intact, attention span short. Mood and affect remain somewhat anxious, labile, but no suicidal or homicidal ideations. LABORATORY DATA: Reviewed. Valproic acid level is 46 on Depakote ER 500 mg at bedtime. IMPRESSION: Unchanged from initial note. PLAN: Increase Depakote ER to 750 mg at bedtime. Check CBC, CMP, valproic acid level in 3 days. Reduce Lamictal to 50 mg a day for 3 days and then stop it. Postpone the discharge for another 2 or 3 days to stabilize her psychotropics. Continue clozapine, Luvox at the current dosage along with Remeron 7.5 mg p.o. at bedtime. MAN Marek SHELL MD DR: JESSEE/umer JOB#: [id number] / [id number]
[2019-03-31 05:58] VITALS: BP 118/77
[2019-03-31] MEDS: NICOTINE 21MG PATCH. TD SCH (11:38)
[2019-03-31] MEDS: LACTULOSE 20 GM/30 ML SOLUTION. PO SCH ×4 (11:39→19:32)
[2019-03-31] MEDS: CHOLECALCIFEROL (VITAMIN D3) 1,000 UNIT TABLET PO SCH (11:40)
[2019-03-31] MEDS: NAPROXEN 250 MG TABLET PO SCH ×2 (11:40→19:32)
[2019-03-31] MEDS: MIRABEGRON 25 MG TAB.ER.24H PO SCH (11:42)
[2019-03-31] MEDS: lamoTRIgine 100 MG TABLET. PO SCH (11:42)
[2019-03-31] MEDS: risperiDONE 1 MG TABLET. PO SCH ×2 (11:42→19:33)
--- NOTE | 2019-03-31 13:50 | PN ---
DATE: 03/30/2019 PSYCHIATRIC PROGRESS NOTE This late entry 03/30/2019 covers elements not covered in my initial note. SUBJECTIVE: I met with the patient in the evening at some length. The patient slept 6-1/4 hours previous night. She slept 10 in the morning, attention seeking, trying to slide herself off the wheelchair onto the floor and acts helpless. I processed this with her as one of the criteria and that needs to be resolved before she could return back to the [facility]. Absolute neutrophil count is 2700. We will check CBC, CMP, valproic acid level on 04/01/2019. REVIEW OF SYSTEMS: Ambulation impaired, in wheelchair. No CV, , pulmonary, eye, ENT system symptoms on review. MENTAL STATUS EXAM: Oriented to herself and situation. Speech has some latency, at times somewhat pressured at other times. Abstraction fair, computation impaired, language function intact, attention span short. Mood and affect somewhat anxious, labile, but improved. LABORATORY DATA: Reviewed. IMPRESSION: Unchanged from initial note. PLAN: No change from initial note other than labs noted as above for 04/01/2019 including valproic acid level. MAN Marek SHELL MD DR: JESSEE/umer JOB#: [id number] / [id number]
[2019-03-31 15:47] VITALS: BP 111/77
[2019-03-31] MEDS: cloZAPine 100 MG TABLET PO SCH (19:31)
[2019-03-31] MEDS: MIRTAZAPINE 7.5 MG TABLET. PO SCH (19:32)
[2019-03-31] MEDS: DIVALPROEX ER 500 MG TAB.ER.24H PO SCH (19:32)
--- NOTE | 2019-03-31 22:18 | PDOC ---
Exam Note: Sami Note: Please also refer to the separate dictated note~for this date of service dictated separately.~Patient seen individually. Discussed the patient with Nursing staff reviewed the chart.~Reviewed interim history and current functioning. Reviewed vital signs,~Labs/ Radiology~and current medications noted below. Continue current treatment with the changes noted in the dictated addendum note Assessment: Vital Signs/I&O: Vital Signs Date Time Temp Pulse Resp B/P (MAP) Pulse Ox O2 Delivery O2 Flow Rate FiO2 03/31/19 15:47 99.0 103 20 111/77 (88) 96 03/28/19 05:44 Room Air I & O 03/30/19 03/30/19 03/31/19 14:59 22:59 06:59 Intake Total 200 ml 240 ml 240 ml Balance 200 ml 240 ml 240 ml Current Medications: I have reviewed the current psychotropics carefully including drug interactions. Risk benefit ratio favors no change other than as noted in my dictated progress note. Diagnosis: Problems: (1) Anxiety disorder (2) Impulse control disorder (3) Schizoaffective disorder, chronic condition with acute exacerbation (4) Psychosis, atypical MARIALUISA SHELL MD Mar 31, 2019 22:18
[2019-04-01 06:07] VITALS: BP 116/88
[2019-04-01 07:09] LABS: BASO # 0.1 x10^3/uL (0.0-0.2); BASO % 1 % (0-3); EOS # 0.3 x10^3/uL (0.0-0.7); EOS % 6 % (0-3); HEMOGLOBIN 13.5 g/dL (12.0-15.5); LYMPH # 1.9 x10^3/uL (1.0-4.8); LYMPH % 36 % (24-48); MEAN CORPUSCULAR HEMOGLOBIN 32 pg (25-35); MEAN CORPUSCULAR HGB CONC 33 g/dL (31-37); MEAN CORPUSCULAR VOLUME 98 fL (79-100); MONO # 0.4 x10^3/uL (0.0-1.1); MONO % 8 % (0-9); NEUT # 2.7 x10^3uL (1.8-7.7); NEUT % 49 % (31-73); PLATELET COUNT 127 x10^3/uL (140-400); RED BLOOD COUNT 4.18 x10^6/uL (3.50-5.40); RED CELL DISTRIBUTION WIDTH 14.2 % (11.5-14.5); WHITE BLOOD COUNT 5.4 x10^3/uL (4.0-11.0)
[2019-04-01 07:28] LABS: ALBUMIN 3.4 g/dL (3.4-5.0); ALBUMIN/GLOBULIN RATIO 0.9 (1.0-1.7); CALCIUM 9.6 mg/dL (8.5-10.1); CREATININE 1.1 mg/dL (0.6-1.0); GFR 61.1; POTASSIUM 4.4 mmol/L (3.5-5.1); TOTAL BILIRUBIN 0.5 mg/dL (0.2-1.0); TOTAL PROTEIN 7.3 g/dL (6.4-8.2)
[2019-04-01 08:05] LABS: VAL ACID 52 mcg/mL (50-100)
[2019-04-01] MEDS: lamoTRIgine 100 MG TABLET. PO SCH (08:15)
[2019-04-01] MEDS: NAPROXEN 250 MG TABLET PO SCH (08:16)
[2019-04-01] MEDS: risperiDONE 1 MG TABLET. PO SCH (08:16)
[2019-04-01] MEDS: CHOLECALCIFEROL (VITAMIN D3) 1,000 UNIT TABLET PO SCH (08:16)
[2019-04-01] MEDS: LACTULOSE 20 GM/30 ML SOLUTION. PO SCH (08:16)
[2019-04-01] MEDS: MIRABEGRON 25 MG TAB.ER.24H PO SCH (08:16)
[2019-04-01] MEDS: NICOTINE 21MG PATCH. TD SCH (08:17)
--- NOTE | 2019-04-01 18:31 | PDOC ---
Exam Note: Sami Note: Please also refer to the separate dictated note~for this date of service dictated separately.~Patient seen individually. Discussed the patient with Nursing staff reviewed the chart.~Reviewed interim history and current functioning. Reviewed vital signs,~Labs/ Radiology~and current medications noted below. Continue current treatment with the changes noted in the dictated addendum note Assessment: Vital Signs/I&O: Vital Signs Date Time Temp Pulse Resp B/P (MAP) Pulse Ox O2 Delivery O2 Flow Rate FiO2 04/01/19 06:07 96.9 102 20 116/88 (97) 96 Room Air I & O 03/31/19 03/31/19 04/01/19 15:00 23:00 07:00 Intake Total 360 ml 480 ml 240 ml Balance 360 ml 480 ml 240 ml Labs: Laboratory Tests Test 04/01/19 06:31 White Blood Count 5.4 x10^3/uL (4.0-11.0) Red Blood Count 4.18 x10^6/uL (3.50-5.40) Hemoglobin 13.5 g/dL (12.0-15.5) Hematocrit 41.0 % (36.0-47.0) Mean Corpuscular Volume 98 fL (79-100) Mean Corpuscular Hemoglobin 32 pg (25-35) Mean Corpuscular Hemoglobin Concent 33 g/dL (31-37) Red Cell Distribution Width 14.2 % (11.5-14.5) Platelet Count 127 x10^3/uL (140-400) L Neutrophils (%) (Auto) 49 % (31-73) Lymphocytes (%) (Auto) 36 % (24-48) Monocytes (%) (Auto) 8 % (0-9) Eosinophils (%) (Auto) 6 % (0-3) H Basophils (%) (Auto) 1 % (0-3) Neutrophils # (Auto) 2.7 x10^3uL (1.8-7.7) Lymphocytes # (Auto) 1.9 x10^3/uL (1.0-4.8) Monocytes # (Auto) 0.4 x10^3/uL (0.0-1.1) Eosinophils # (Auto) 0.3 x10^3/uL (0.0-0.7) Basophils # (Auto) 0.1 x10^3/uL (0.0-0.2) Sodium Level 143 mmol/L (136-145) Potassium Level 4.4 mmol/L (3.5-5.1) Chloride Level 104 mmol/L (98-107) Carbon Dioxide Level 31 mmol/L (21-32) Anion Gap 8 (6-14) Blood Urea Nitrogen 17 mg/dL (7-20) Creatinine 1.1 mg/dL (0.6-1.0) H Estimated GFR (Cockcroft-Gault) 61.1 BUN/Creatinine Ratio 15 (6-20) Glucose Level 91 mg/dL (70-99) Calcium Level 9.6 mg/dL (8.5-10.1) Total Bilirubin 0.5 mg/dL (0.2-1.0) Aspartate Amino Transferase (AST) 33 U/L (15-37) Alanine Aminotransferase (ALT) 40 U/L (14-59) Alkaline Phosphatase 134 U/L (46-116) H Total Protein 7.3 g/dL (6.4-8.2) Albumin 3.4 g/dL (3.4-5.0) Albumin/Globulin Ratio 0.9 (1.0-1.7) L Valproic Acid Level 52 mcg/mL (50-100) Valproic Acid Last Dose Date 03/31/2019 Valproic Acid Last Dose Time 2100 Current Medications: I have reviewed the current psychotropics carefully including drug interactions. Risk benefit ratio favors no change other than as noted in my dictated progress note. Diagnosis: Problems: (1) Seizure disorder (2) Schizoaffective disorder, chronic condition with acute exacerbation (3) Impulse control disorder (4) Anxiety disorder MARIALUISA SHELL MD Apr 01, 2019 18:31
--- NOTE | 2019-04-02 00:44 | PN ---
DATE: 03/31/2019 PSYCHIATRIC PROGRESS NOTE This is a late entry 03/31/2019 covers elements not covered in my initial note. SUBJECTIVE: I met with the patient in the evening. The patient slept 5-1/2 hours previous night. She has been tearful at times, tried to contact her son, but he does not call back and she feels abandoned. Processed this with her individually at some length. REVIEW OF SYSTEMS: Ambulation impaired, in wheelchair. No CV, , pulmonary, eye, ENT system symptoms on review. MENTAL STATUS EXAM: Oriented to herself and situation. Speech is coherent, low in volume. Abstraction fair, computation impaired, language function intact, attention span short. Mood and affect somewhat anxious, labile, but improved. She has not been putting herself on the floor. LABORATORY DATA: Reviewed. IMPRESSION: Unchanged from initial note. PLAN: No change from initial note with possible transition back to [facility], 04/01/2019. MARIALUISA SHELL MD DR: JESSEE/umer JOB#: [id number] / [id number]
--- NOTE | 2019-04-03 13:55 | DS ---
DATE OF DISCHARGE: 04/01/2019 DISCHARGE SUMMARY/PSYCHIATRIC PROGRESS NOTE. This late entry, date of service 04/01, cover elements not covered in my initial note. REASON FOR ADMISSION: Please refer to the admission history for details. Briefly, the patient is a 63-year-old -[place] female referred to us from [facility] by her primary care physician on account of worsening of her schizoaffective disorder, bipolar type, mixed with psychotic features. The patient was verbally aggressive and manic, was having significant mood swings, putting herself on the floor repeatedly and at great risk of sustaining a significant injury as a consequence of this. She was paranoid. Thought her belongings were being stolen, drinking multiple cups of fluids with psychogenic polydipsia. She had failed outpatient psychiatric interventions resulting in this referral. SIGNIFICANT FINDINGS AND CLINICAL COURSE: Following admission, the patient was seen daily individually by myself from a psychiatric standpoint, medical followup with Dr. Morley. The patient remained extremely anxious, labile, paranoid, trying to put herself on the floor repeatedly. She is anxious, psychotic with marked mood lability. Adjustments were made in her psychotropics. She is extremely obsessive as well and Luvox was initiated at 25 mg a day and not increased since it could worsen her mood swings. Prior to discharge, she seemed to be more stable on a combination of Luvox 25 mg a day, Clozaril, which was increased to 350 mg at bedtime and blood counts were unremarkable. Lamotrigine was being tapered to be discontinued and she had been started on Depakote ER, which had been increased to 750 mg p.o. at bedtime. Repeat labs and level were awaited, but it was expected a blood level should be therapeutic at the last change of dosage. She was also on Remeron 7.5 mg p.o. at bedtime, Zyprexa p.r.n. for psychosis, agitation. Prior to discharge on 04/01, ambulation impaired, in wheelchair. No CV, , pulmonary, eye, ENT system symptoms on review. MENTAL STATUS EXAM: Oriented to herself and situation. Speech has some latency, coherent. Abstraction fair, computation impaired, language function intact, attention span short. Mood and affect less labile, anxious, less depressed. LABORATORY DATA: Reviewed. FINAL DIAGNOSES: Schizoaffective disorder, bipolar type, mixed with psychotic features; anxiety disorder, unspecified; impulse control disorder, unspecified. Rest unchanged from admission. DISCHARGE MEDICATIONS: Please refer to the [facility]. DISCHARGE INSTRUCTIONS: Outpatient psychiatric and medical followup with the [facility]. MAN Marek SHELL MD DR: aBrtolo JOB#: [id number] / [id number]
== END 2019-04-01 11:39 | DRG 885 ==
LOC: ER 10:40 → GEROPSY 13:45
PROVIDERS: ADMIT Psychiatry & Neurology Psychiatry; ATTEND Psychiatry & Neurology Psychiatry
DX: F25.0 Schizoaffective disorder, bipolar type (principal); G40.909 Epilepsy, unspecified, not intractable, without status epilepticus; E78.5 Hyperlipidemia, unspecified; F41.9 Anxiety disorder, unspecified; F42.9 Obsessive-compulsive disorder, unspecified; F60.3 Borderline personality disorder; F63.9 Impulse disorder, unspecified; N18.3 Chronic kidney disease, stage 3 (moderate); I12.9 Hypertensive chronic kidney disease with stage 1 through stage 4 chronic kidney disease, or unspecified chronic kidney disease; G47.00 Insomnia, unspecified; G89.29 Other chronic pain; K21.9 Gastro-esophageal reflux disease without esophagitis; K59.09 Other constipation; S00.03XA Contusion of scalp, initial encounter; W18.39XA Other fall on same level, initial encounter; Y93.89 Activity, other specified; Y92.89 Other specified places as the place of occurrence of the external cause; Y99.8 Other external cause status; Z79.899 Other long term (current) drug therapy
CPT/HCPCS: 36415; 70450; 80053; 80061; 80164; 81001; 82140; 82306; 82947; 83036; 83540; 83550; 83735; 84436; 84443; 84480; 85025; 86592; 87086; 93005; 99406; 99285-25

== ENCOUNTER 2019-08-20 16:54 | Inpatient (IN) | payer MEDICARE, MEDICAID ==
[~2019-08-20] VITALS: Ht 152.4 cm; Wt 65.9 kg
[~2019-08-20 16:54] MED LIST: ACET325T9 PO; CHOL10003 PO; CLOZ100T7 PO; DIVA500T4 PO; ESCITALOPRAM OXA5 MG PO; FLUV25TA PO; LACT10SO PO; LAMO200T6 PO; MAG30ORA2 PO; MAGN400O7 PO; MENT1ADH29 TP; MIRA25TA PO; MIRT15TA3 PO; NAPR-677 PO; NAPR-683 PO; NICO1PAT21 TD; OLAN5TAB5 PO; RISP1TAB43 PO; TRAM50TA PO; [UNRECOGNIZED DRUG - CODE] TP
[2019-08-20 17:53] LABS: BILIRUBIN,URINE NEG (NEG); CLARITY,URINE CLEAR; COLOR,URINE YELLOW; GLUCOSE,URINE NEG (NEG)
[2019-08-20 17:54] LABS: BACTERIA,URINE 0 /HPF (0-FEW); NITRITE,URINE NEG (NEG); SQUAMOUS EPITHELIAL CELL,UR OCC /LPF; UROBILINOGEN,URINE 0.2 mg/dL (0.2 mg/dL); WBC,URINE RARE /HPF (0-4)
[2019-08-20 17:59] LABS: BASO # 0.1 x10^3/uL (0.0-0.2); BASO % 1 % (0-3); EOS # 0.2 x10^3/uL (0.0-0.7); EOS % 3 % (0-3); HEMATOCRIT 36.2 % (36.0-47.0); HEMOGLOBIN 12.1 g/dL (12.0-15.5); LYMPH # 1.6 x10^3/uL (1.0-4.8); LYMPH % 26 % (24-48); MEAN CORPUSCULAR HEMOGLOBIN 33 pg (25-35); MEAN CORPUSCULAR HGB CONC 34 g/dL (31-37); MEAN CORPUSCULAR VOLUME 97 fL (79-100); MONO # 0.5 x10^3/uL (0.0-1.1); MONO % 8 % (0-9); NEUT # 3.9 x10^3uL (1.8-7.7); NEUT % 62 % (31-73); PLATELET COUNT 129 x10^3/uL (140-400); RED BLOOD COUNT 3.72 x10^6/uL (3.50-5.40); RED CELL DISTRIBUTION WIDTH 14.7 % (11.5-14.5); WHITE BLOOD COUNT 6.3 x10^3/uL (4.0-11.0)
[2019-08-20 18:13] LABS: ALBUMIN 3.2 g/dL (3.4-5.0); ALBUMIN/GLOBULIN RATIO 0.8 (1.0-1.7); CALCIUM 8.8 mg/dL (8.5-10.1); CREATININE 0.7 mg/dL (0.6-1.0); GFR 102.6; MAGNESIUM 1.8 mg/dL (1.8-2.4); POTASSIUM 4.1 mmol/L (3.5-5.1); TOTAL BILIRUBIN 0.3 mg/dL (0.2-1.0); TOTAL PROTEIN 7.4 g/dL (6.4-8.2)
--- NOTE | 2019-08-20 18:19 | PHYS DOC ---
Past History Past Medical History: Constipation, Depression, GERD, Hypertension, Renal Disease, Schizophrenia, Other Additional Past Medical Histor: unspecified convulsions, epilepsy Alcohol Use: None Drug Use: None Adult General Chief Complaint Chief Complaint: MEDICAL CLEARANCE HPI HPI 64-year-old female presents for clearance of behavioral health admission. The patient is reportedly here for suicidal thoughts. She denies suicidal ideation to us. She has no medical complaints. Review of Systems Review of Systems Constitutional: Denies fever or chills [] Eyes: Denies change in visual acuity, redness, or eye pain [] HENT: Denies nasal congestion or sore throat [] Respiratory: Denies cough or shortness of breath [] Cardiovascular: No additional information not addressed in HPI [] GI: Denies abdominal pain, nausea, vomiting, bloody stools or diarrhea [] : Denies dysuria or hematuria [] Musculoskeletal: Denies back pain or joint pain [] Integument: Denies rash or skin lesions [] Neurologic: Denies headache, focal weakness or sensory changes [] Endocrine: Denies polyuria or polydipsia [] All other systems were reviewed and found to be within normal limits, except as documented in this note. Allergies Allergies Allergies Coded Allergies Type Severity Reaction Last Updated Verified thioridazine Allergy Intermediate 03/19/19 Yes Physical Exam Physical Exam Constitutional: Well developed, well nourished, no acute distress, non-toxic appearance. [] HENT: Normocephalic, atraumatic, bilateral external ears normal, oropharynx moist, no oral exudates, nose normal. [] Eyes: PERRLA, EOMI, conjunctiva normal, no discharge. [] Neck: Normal range of motion, no tenderness, supple, no stridor. [] Cardiovascular:Heart rate regular rhythm, no murmur [] Lungs & Thorax: Bilateral breath sounds clear to auscultation [] Abdomen: Bowel sounds normal, soft, no tenderness, no masses, no pulsatile masses. [] Skin: Warm, dry, no erythema, no rash. [] Back: No tenderness, no CVA tenderness. [] Extremities: No tenderness, no cyanosis, no clubbing, ROM intact, no edema. [] Neurologic: Alert and oriented, normal motor function, normal sensory function, no focal deficits noted. [] Psychologic: Affect normal, judgement normal, mood normal. [] Current Patient Data Vital Signs Vital Signs Date Time Temp Pulse Resp B/P (MAP) Pulse Ox O2 Delivery O2 Flow Rate FiO2 08/20/19 17:23 97.4 100 Room Air Lab Results Laboratory Tests Test 08/20/19 17:10 08/20/19 17:45 Urine Collection Type U cath Urine Color Yellow Urine Clarity Clear Urine pH 7.0 Urine Specific [place] 1.010 Urine Protein Neg (NEG-TRACE) Urine Glucose (UA) Neg mg/dL (NEG) Urine Ketones (Stick) Neg mg/dL (NEG) Urine Blood Neg (NEG) Urine Nitrite Neg (NEG) Urine Bilirubin Neg (NEG) Urine Urobilinogen Dipstick 0.2 mg/dL (0.2 mg/dL) Urine Leukocyte Esterase Neg (NEG) Urine RBC 1-2 /HPF (0-2) Urine WBC Rare /HPF (0-4) Urine Squamous Epithelial Cells Occ /LPF Urine Bacteria 0 /HPF (0-FEW) White Blood Count 6.3 x10^3/uL (4.0-11.0) Red Blood Count 3.72 x10^6/uL (3.50-5.40) Hemoglobin 12.1 g/dL (12.0-15.5) Hematocrit 36.2 % (36.0-47.0) Mean Corpuscular Volume 97 fL (79-100) Mean Corpuscular Hemoglobin 33 pg (25-35) Mean Corpuscular Hemoglobin Concent 34 g/dL (31-37) Red Cell Distribution Width 14.7 % (11.5-14.5) H Platelet Count 129 x10^3/uL (140-400) L Neutrophils (%) (Auto) 62 % (31-73) Lymphocytes (%) (Auto) 26 % (24-48) Monocytes (%) (Auto) 8 % (0-9) Eosinophils (%) (Auto) 3 % (0-3) Basophils (%) (Auto) 1 % (0-3) Neutrophils # (Auto) 3.9 x10^3uL (1.8-7.7) Lymphocytes # (Auto) 1.6 x10^3/uL (1.0-4.8) Monocytes # (Auto) 0.5 x10^3/uL (0.0-1.1) Eosinophils # (Auto) 0.2 x10^3/uL (0.0-0.7) Basophils # (Auto) 0.1 x10^3/uL (0.0-0.2) Sodium Level 136 mmol/L (136-145) Potassium Level 4.1 mmol/L (3.5-5.1) Chloride Level 99 mmol/L (98-107) Carbon Dioxide Level 27 mmol/L (21-32) Anion Gap 10 (6-14) Blood Urea Nitrogen 16 mg/dL (7-20) Creatinine 0.7 mg/dL (0.6-1.0) Estimated GFR (Cockcroft-Gault) 102.6 BUN/Creatinine Ratio 23 (6-20) H Glucose Level 84 mg/dL (70-99) Calcium Level 8.8 mg/dL (8.5-10.1) Magnesium Level 1.8 mg/dL (1.8-2.4) Total Bilirubin 0.3 mg/dL (0.2-1.0) Aspartate Amino Transferase (AST) 34 U/L (15-37) Alanine Aminotransferase (ALT) 32 U/L (14-59) Alkaline Phosphatase 129 U/L (46-116) H Total Protein 7.4 g/dL (6.4-8.2) Albumin 3.2 g/dL (3.4-5.0) L Albumin/Globulin Ratio 0.8 (1.0-1.7) L EKG EKG [] Radiology/Procedures Radiology/Procedures [] Course & Med Decision Making Course & Med Decision Making Pertinent Labs and Imaging studies reviewed. (See chart for details) The patient's labs are unremarkable. Her urinalysis is negative for infection. She is medically stable for behavioral health admission. [] Dragon Disclaimer Dragon Disclaimer This electronic medical record was generated, in whole or in part, using a voice recognition dictation system. Departure Departure: Impression: Primary Impression: Medical clearance for psychiatric admission Disposition: ADMITTED INPATIENT Condition: STABLE Referrals: KATHIE YOUNG (PCP) MIRIAN LUCIA DO Aug 20, 2019 18:19
[2019-08-20] MEDS ORDERED: CALC500T31 PO (19:26)
[2019-08-20] MEDS ORDERED: MULT-114 PO (19:26)
[2019-08-20 20:45] VITALS: BP 142/96
[2019-08-20] MEDS ORDERED: METHYL SALICYLATE/MENTHOL TOPICAL OINTMENT 57GM TUBE. TP PRN (21:45)
[2019-08-20] MEDS ORDERED: MAG HYDROX/AL HYDROX/SIMETH 30 ML ORAL.SUSP PO PRN (21:45)
[2019-08-20 21:57] LABS: VAL ACID 62 mcg/mL (50-100)
[2019-08-20] MEDS: risperiDONE 1 MG TABLET. PO SCH (22:00)
[2019-08-20] MEDS: LACTULOSE 20 GM/30 ML SOLUTION. PO SCH (22:30)
[2019-08-20] MEDS: DIVALPROEX ER 500 MG TAB.ER.24H PO SCH (22:30)
[2019-08-20] MEDS: CALCIUM CARBONATE 500 MG TABLET PO SCH (22:30)
[2019-08-20] MEDS: MIRTAZAPINE 7.5 MG TABLET. PO SCH (22:30)
[2019-08-20] MEDS: cloZAPine 100 MG TABLET PO SCH (22:30)
[2019-08-21 06:02] VITALS: BP 112/74
[2019-08-21] MEDS: MULTIVITAMIN with MINERAL TABLET. PO SCH (08:05)
[2019-08-21] MEDS: risperiDONE 1 MG TABLET. PO SCH ×2 (08:05→21:04)
[2019-08-21] MEDS: CHOLECALCIFEROL (VITAMIN D3) 1,000 UNIT TABLET PO SCH (08:05)
[2019-08-21] MEDS: LACTULOSE 20 GM/30 ML SOLUTION. PO SCH ×4 (08:05→21:04)
[2019-08-21] MEDS: MIRABEGRON 25 MG TAB.ER.24H PO SCH (08:05)
[2019-08-21] MEDS: NICOTINE 21MG PATCH. TD SCH (08:06)
[2019-08-21 16:04] VITALS: BP 124/81
[2019-08-21 20:07] LABS: THYROXINE 10.1 ug/dL (4.5-12.0)
--- NOTE | 2019-08-21 20:28 | PDOC ---
Exam Note: Sami Note: Please also refer to the separate dictated note~for this date of service dictated separately. Discussed the patient with Nursing staff reviewed the chart.~Reviewed interim history and current functioning. Reviewed vital signs,~Labs/ Radiology~and current medications noted below. Continue current treatment with the changes noted in the dictated addendum note Assessment: Vital Signs/I&O: Vital Signs Date Time Temp Pulse Resp B/P (MAP) Pulse Ox O2 Delivery O2 Flow Rate FiO2 08/21/19 16:04 98.3 96 18 124/81 (95) 98 08/20/19 17:23 Room Air I & O 08/20/19 08/20/19 08/21/19 15:00 23:00 07:00 Intake Total 420 ml Balance 420 ml Current Medications: Meds: Current Medications Medications (Trade) Dose Ordered Sig/Lynn Route PRN Reason Start Time Stop Time Status Last Admin Dose Admin Nicotine (Nicoderm Cq 21mg) 1 patch DAILY TD 08/21/19 09:00 08/21/19 08:06 Fluvoxamine Maleate (Luvox) 25 mg DAILY PO 08/21/19 09:00 08/21/19 08:05 Risperidone (RisperDAL) 1 mg BID PO 08/20/19 22:00 08/21/19 08:05 Vitamin D (Vitamin D3) 2,000 unit DAILY PO 08/21/19 09:00 08/21/19 08:05 Mirabegron (Myrbetriq) 25 mg DAILY PO 08/21/19 09:00 08/21/19 08:05 Lactulose (Lactulose) 20 gm QID PO 08/20/19 22:30 08/21/19 12:17 Multivitamins/ Calcium (Thera-M Plus) 1 tab DAILY PO 08/21/19 09:00 08/21/19 08:05 I have reviewed the current psychotropics carefully including drug interactions. Risk benefit ratio favors no change other than as noted in my dictated progress note. Diagnosis: Problems: (1) Anxiety disorder (2) Impulse control disorder (3) Schizoaffective disorder, chronic condition with acute exacerbation (4) Psychosis, atypical (5) Seizure disorder MARIALUISA SHELL MD Aug 21, 2019 20:28
[2019-08-21 20:43] LABS: THYROID STIM HORMONE (TSH) 2.177 uIU/mL (0.358-3.740)
[2019-08-21] MEDS: DIVALPROEX ER 500 MG TAB.ER.24H PO SCH (21:03)
[2019-08-21] MEDS: CALCIUM CARBONATE 500 MG TABLET PO SCH (21:03)
[2019-08-21] MEDS: MIRTAZAPINE 7.5 MG TABLET. PO SCH (21:03)
[2019-08-21] MEDS: cloZAPine 100 MG TABLET PO SCH (21:04)
[2019-08-21] MEDS: ACETAMINOPHEN 325 MG TABLET PO PRN (21:15)
--- NOTE | 2019-08-21 21:38 | CONS ---
DATE OF CONSULTATION: 08/21/2019 REASON FOR CONSULTATION: Medical management. HISTORY OF PRESENT ILLNESS: The patient is a 64-year-old -[place] female patient who was [facility] on account of saying that she is going to kill herself, carrying her purse around, paranoid, thinking people are stealing from her, all this in a background of schizoaffective disorder, bipolar type, mixed with psychotic features, who was admitted to this unit for inpatient psychiatric stabilization. PAST MEDICAL HISTORY: Significant for hypertension, anemia, chronic back pain, chronic kidney disease stage 3. She is also known to have seasonal allergic rhinitis, gastroesophageal reflux disease, constipation and insomnia. PAST SURGICAL HISTORY: Unremarkable. ALLERGIES: She is allergic to THIORIDAZINE. FAMILY HISTORY: Noncontributory. SOCIAL HISTORY: She apparently is a resident at [facility]. She apparently is not known to smoke, drink alcohol or use any recreational drugs. MEDICATIONS: She is currently on following medications: She is on Tylenol 650 mg every 4 hours as needed, divalproex or Depakote 500 mg at bedtime, fluvoxamine 25 mg daily, mirtazapine 7.5 mg at bedtime, clozapine 350 mg at bedtime, risperidone 1 mg twice a day, lactulose 30 mL p.o. 4 times a day, calcium carbonate 500 mg daily, menthol for BenGay Ultra strength apply topically every 6 hours for pain in her right shoulder, Myrbetriq 25 mg once a day, vitamin D 2000 units p.o. daily, multivitamin 1 tablet once a day, petroleum jelly lip treatment apply topically as needed. REVIEW OF SYSTEMS: As per history of present illness. PHYSICAL EXAMINATION: GENERAL: When I saw her, she was resting slightly propped up in bed, in no apparent respiratory distress. She is awake, alert, responding appropriately. She was pale, no jaundice, cyanosis, lymphadenopathy or thyromegaly. No jugular venous distention. No lower limb edema. VITAL SIGNS: Her heart rate was 100, blood pressure was 112/74, temperature was 97.5, respiratory rate was 20, and oxygen saturation was 93% on room air. HEAD, EYES, EARS, NOSE AND THROAT: Showed normocephalic, atraumatic. NECK: Supple. HEART: Showed normal first and second heart sounds. No gallop or murmur. CHEST: Clear to auscultation. No crepitation or rhonchi. ABDOMEN: Distended, soft, nontender. No guarding or rigidity. No organomegaly. All hernial orifice intact. Bowel sounds normal. NEUROLOGIC: She is awake, alert, responding appropriately. All cranial nerves intact. EXTREMITIES: She moves extremities without difficulty. She ambulates with a walker. LABORATORY DATA: Her lab work showed her white cell count to be 6300, hemoglobin 12, hematocrit 36, MCV 97 and platelet count of 129,000. Her chemistry showed a serum sodium 136, potassium 4.1, chloride 99, bicarbonate 27, anion gap of 10, BUN 16, creatinine 0.7, estimated GFR was 102 mL per minute. Her glucose was 84, calcium was 8.8, magnesium was 1.8. Total bilirubin, AST, ALT, alkaline phosphatase were normal. Total protein was 7.4, albumin was 3.2. Urinalysis was essentially unremarkable and toxic screen showed her valproic acid was at 62 mcg/mL, which is well within therapeutic range. IMPRESSION: In summary, this is a 64-year-old -[place] female patient who was admitted on account of stating that she wants to kill herself, carrying purse around, paranoid, thinking people are stealing from her, all this in a background of schizoaffective disorder, bipolar type, mixed with psychotic features. She is here for inpatient psychiatric stabilization. Medically, she is known to have hypertension, chronic kidney disease, chronic back pain, chronic constipation. All in all, the patient is medically stable. In fact, her kidney function if anything is normal, her creatinine is only 0.7 mg/dL and estimated GFR was 102 mL per minute. Does have mild thrombocytopenia with platelet count of 129,000. Her plan is to obviously review all her lab work that are still pending at the time of this dictation and make any appropriate recommendations. Thank you, Dr. Guo for allowing me to participate in the care of this patient. AUSTYN JANE MD DR: CRISTINA/umer JOB#: [id number] / [id number]
[2019-08-22 01:06] LABS: HEMOGLOBIN A1C 5.4 % (4.8-5.6)
[2019-08-22 05:37] VITALS: BP 110/80
[2019-08-22] MEDS: LACTULOSE 20 GM/30 ML SOLUTION. PO SCH ×5 (09:00→21:20)
[2019-08-22] MEDS: risperiDONE 1 MG TABLET. PO SCH ×2 (10:00→21:19)
[2019-08-22] MEDS: MIRABEGRON 25 MG TAB.ER.24H PO SCH (10:00)
[2019-08-22] MEDS: NICOTINE 21MG PATCH. TD SCH (10:00)
[2019-08-22] MEDS: MULTIVITAMIN with MINERAL TABLET. PO SCH (10:01)
[2019-08-22] MEDS: CHOLECALCIFEROL (VITAMIN D3) 1,000 UNIT TABLET PO SCH (10:01)
[2019-08-22 15:50] VITALS: BP 111/76
[2019-08-22] MEDS: ACETAMINOPHEN 325 MG TABLET PO PRN ×2 (16:50→21:46)
[2019-08-22] MEDS: CALCIUM CARBONATE 500 MG TABLET PO SCH (21:19)
[2019-08-22] MEDS: MIRTAZAPINE 7.5 MG TABLET. PO SCH (21:19)
[2019-08-22] MEDS: DIVALPROEX ER 500 MG TAB.ER.24H PO SCH (21:20)
[2019-08-22] MEDS: cloZAPine 100 MG TABLET PO SCH (21:20)
[2019-08-22] MEDS ORDERED: traZODone 100 MG TABLET. PO PRN (21:30)
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
[2019-08-22] MEDS ORDERED: traZODone 100 MG TABLET. PO ONE (22:30)
[2019-08-23 06:19] VITALS: BP 131/74
[2019-08-23] MEDS: LACTULOSE 20 GM/30 ML SOLUTION. PO SCH ×4 (09:00→20:13)
[2019-08-23] MEDS: MULTIVITAMIN with MINERAL TABLET. PO SCH (10:47)
[2019-08-23] MEDS: risperiDONE 1 MG TABLET. PO SCH ×2 (10:48→20:12)
[2019-08-23] MEDS: CHOLECALCIFEROL (VITAMIN D3) 1,000 UNIT TABLET PO SCH (10:49)
[2019-08-23] MEDS: NICOTINE 21MG PATCH. TD SCH (10:49)
[2019-08-23] MEDS: ACETAMINOPHEN 325 MG TABLET PO PRN ×2 (12:36→23:38)
[2019-08-23] MEDS: MIRABEGRON 25 MG TAB.ER.24H PO SCH (12:37)
[2019-08-23 16:14] VITALS: BP 124/84
[2019-08-23] MEDS: MIRTAZAPINE 7.5 MG TABLET. PO SCH (20:11)
[2019-08-23] MEDS: CALCIUM CARBONATE 500 MG TABLET PO SCH (20:11)
[2019-08-23] MEDS: DIVALPROEX ER 500 MG TAB.ER.24H PO SCH (20:12)
[2019-08-23] MEDS: cloZAPine 100 MG TABLET PO SCH (20:12)
[2019-08-23] MEDS: traZODone 100 MG TABLET. PO SCH (20:13)
--- NOTE | 2019-08-23 21:56 | PDOC ---
Exam Note: Sami Note: This is a late entry for DOS 08/22/2019. Please also refer to the separate dictated note~for this date of service dictated separately.~Patient seen individually. Discussed the patient with Nursing staff reviewed the chart.~Reviewed interim history and current functioning. Reviewed vital signs,~Labs/ Radiology~and current medications noted below. Continue current treatment with the changes noted in the dictated addendum note Assessment: Vital Signs/I&O: Vital Signs Date Time Temp Pulse Resp B/P (MAP) Pulse Ox O2 Delivery O2 Flow Rate FiO2 08/23/19 16:14 98.0 88 20 124/84 (97) 97 08/22/19 05:37 Room Air I & O 08/22/19 08/22/19 08/23/19 15:00 23:00 07:00 Intake Total 600 ml 360 ml 240 ml Balance 600 ml 360 ml 240 ml Current Medications: Meds: Current Medications Medications (Trade) Dose Ordered Sig/Lynn Route PRN Reason Start Time Stop Time Status Last Admin Dose Admin Trazodone HCl (Desyrel) 100 mg QHS PO 08/23/19 21:00 08/23/19 20:13 Fluvoxamine Maleate (Luvox) 50 mg DAILY PO 08/23/19 09:00 08/23/19 10:48 Trazodone HCl (Desyrel) 100 mg 1X ONCE PO 08/22/19 22:30 08/22/19 22:31 DC 08/22/19 22:30 I have reviewed the current psychotropics carefully including drug interactions. Risk benefit ratio favors no change other than as noted in my dictated progress note. Diagnosis: Problems: (1) Anxiety disorder (2) Impulse control disorder (3) Schizoaffective disorder, chronic condition with acute exacerbation (4) Psychosis, atypical (5) Seizure disorder (6) Mild cognitive impairment MARIALUISA SHELL MD Aug 23, 2019 21:56
--- NOTE | 2019-08-23 21:56 | PDOC ---
Exam Note: Sami Note: Please also refer to the separate dictated note~for this date of service dictated separately.~Patient seen individually. Discussed the patient with Nursing staff reviewed the chart.~Reviewed interim history and current functioning. Reviewed vital signs,~Labs/ Radiology~and current medications noted below. Continue current treatment with the changes noted in the dictated addendum note Assessment: Vital Signs/I&O: Vital Signs Date Time Temp Pulse Resp B/P (MAP) Pulse Ox O2 Delivery O2 Flow Rate FiO2 08/23/19 16:14 98.0 88 20 124/84 (97) 97 08/22/19 05:37 Room Air I & O 08/22/19 08/22/19 08/23/19 15:00 23:00 07:00 Intake Total 600 ml 360 ml 240 ml Balance 600 ml 360 ml 240 ml Current Medications: Meds: Current Medications Medications (Trade) Dose Ordered Sig/Lynn Route PRN Reason Start Time Stop Time Status Last Admin Dose Admin Trazodone HCl (Desyrel) 100 mg QHS PO 08/23/19 21:00 08/23/19 20:13 Fluvoxamine Maleate (Luvox) 50 mg DAILY PO 08/23/19 09:00 08/23/19 10:48 Trazodone HCl (Desyrel) 100 mg 1X ONCE PO 08/22/19 22:30 08/22/19 22:31 DC 08/22/19 22:30 I have reviewed the current psychotropics carefully including drug interactions. Risk benefit ratio favors no change other than as noted in my dictated progress note. Diagnosis: Problems: (1) Mild cognitive impairment (2) Anxiety disorder (3) Impulse control disorder (4) Schizoaffective disorder, chronic condition with acute exacerbation (5) Psychosis, atypical (6) Seizure disorder MARIALUISA SHELL MD Aug 23, 2019 21:56
[2019-08-24 05:56] VITALS: BP 114/67
[2019-08-24] MEDS: LACTULOSE 20 GM/30 ML SOLUTION. PO SCH ×4 (09:00→20:42)
[2019-08-24] MEDS: risperiDONE 1 MG TABLET. PO SCH ×2 (09:24→20:42)
[2019-08-24] MEDS: CHOLECALCIFEROL (VITAMIN D3) 1,000 UNIT TABLET PO SCH (09:24)
[2019-08-24] MEDS: MULTIVITAMIN with MINERAL TABLET. PO SCH (09:24)
[2019-08-24] MEDS: MIRABEGRON 25 MG TAB.ER.24H PO SCH (09:24)
[2019-08-24] MEDS: NICOTINE 21MG PATCH. TD SCH (09:24)
[2019-08-24 10:28] LABS: BASO % 1 % (0-3); EOS # 0.2 x10^3/uL (0.0-0.7); EOS % 4 % (0-3); HEMATOCRIT 35.7 % (36.0-47.0); HEMOGLOBIN 11.8 g/dL (12.0-15.5); LYMPH # 1.1 x10^3/uL (1.0-4.8); LYMPH % 22 % (24-48); MEAN CORPUSCULAR HEMOGLOBIN 33 pg (25-35); MEAN CORPUSCULAR HGB CONC 33 g/dL (31-37); MEAN CORPUSCULAR VOLUME 98 fL (79-100); MONO # 0.5 x10^3/uL (0.0-1.1); MONO % 10 % (0-9); NEUT # 3.2 x10^3uL (1.8-7.7); NEUT % 63 % (31-73); PLATELET COUNT 120 x10^3/uL (140-400); RED BLOOD COUNT 3.64 x10^6/uL (3.50-5.40); RED CELL DISTRIBUTION WIDTH 14.4 % (11.5-14.5)
[2019-08-24 16:05] VITALS: BP 147/80
[2019-08-24] MEDS: ACETAMINOPHEN 325 MG TABLET PO PRN (16:31)
--- NOTE | 2019-08-24 20:26 | PDOC ---
Exam Note: Sami Note: Please also refer to the separate dictated note~for this date of service dictated separately.~Patient seen individually. Discussed the patient with Nursing staff reviewed the chart.~Reviewed interim history and current functioning. Reviewed vital signs,~Labs/ Radiology~and current medications noted below. Continue current treatment with the changes noted in the dictated addendum note Assessment: Vital Signs/I&O: Vital Signs Date Time Temp Pulse Resp B/P (MAP) Pulse Ox O2 Delivery O2 Flow Rate FiO2 08/24/19 16:05 97.1 70 18 147/80 (102) 94 08/22/19 05:37 Room Air I & O 08/23/19 08/23/19 08/24/19 14:59 22:59 06:59 Intake Total 720 ml 600 ml Balance 720 ml 600 ml Labs: Laboratory Tests Test 08/24/19 10:19 White Blood Count 5.0 x10^3/uL (4.0-11.0) Red Blood Count 3.64 x10^6/uL (3.50-5.40) Hemoglobin 11.8 g/dL (12.0-15.5) L Hematocrit 35.7 % (36.0-47.0) L Mean Corpuscular Volume 98 fL (79-100) Mean Corpuscular Hemoglobin 33 pg (25-35) Mean Corpuscular Hemoglobin Concent 33 g/dL (31-37) Red Cell Distribution Width 14.4 % (11.5-14.5) Platelet Count 120 x10^3/uL (140-400) L Neutrophils (%) (Auto) 63 % (31-73) Lymphocytes (%) (Auto) 22 % (24-48) L Monocytes (%) (Auto) 10 % (0-9) H Eosinophils (%) (Auto) 4 % (0-3) H Basophils (%) (Auto) 1 % (0-3) Neutrophils # (Auto) 3.2 x10^3uL (1.8-7.7) Lymphocytes # (Auto) 1.1 x10^3/uL (1.0-4.8) Monocytes # (Auto) 0.5 x10^3/uL (0.0-1.1) Eosinophils # (Auto) 0.2 x10^3/uL (0.0-0.7) Basophils # (Auto) 0.0 x10^3/uL (0.0-0.2) Current Medications: Meds: Current Medications Medications (Trade) Dose Ordered Sig/Lynn Route PRN Reason Start Time Stop Time Status Last Admin Dose Admin Trazodone HCl (Desyrel) 100 mg QHS PO 08/23/19 21:00 08/23/19 20:13 I have reviewed the current psychotropics carefully including drug interactions. Risk benefit ratio favors no change other than as noted in my dictated progress note. Diagnosis: Problems: (1) Mild cognitive impairment (2) Anxiety disorder (3) Impulse control disorder (4) Schizoaffective disorder, chronic condition with acute exacerbation (5) Psychosis, atypical (6) Seizure disorder MARIALUISA SHELL MD Aug 24, 2019 20:26
[2019-08-24] MEDS: traZODone 100 MG TABLET. PO SCH (20:42)
[2019-08-24] MEDS: cloZAPine 100 MG TABLET PO SCH (20:42)
[2019-08-24] MEDS: MIRTAZAPINE 7.5 MG TABLET. PO SCH (20:42)
[2019-08-24] MEDS: CALCIUM CARBONATE 500 MG TABLET PO SCH (20:42)
[2019-08-24] MEDS: DIVALPROEX ER 500 MG TAB.ER.24H PO SCH (20:43)
[2019-08-24] MEDS ORDERED: traZODone 100 MG TABLET. PO PRN (23:00)
[2019-08-24] MEDS ORDERED: traZODone 100 MG TABLET. PO SCH (23:00)
--- NOTE | 2019-08-25 03:44 | PN ---
DATE: 08/22/2019 PSYCHIATRIC PROGRESS NOTE This late entry 08/22/2019 covers elements not covered in my initial note. SUBJECTIVE: I met with the patient at length in her room evening of 08/22/2019. The patient slept 4-1/4 hours previous night but wanting something additionally to help with her sleep. We will add trazodone 100 mg at bedtime, may repeat x 1 for insomnia. She is also paranoid, suspicious, obsessive. REVIEW OF SYSTEMS: No CV, , pulmonary, eye, ENT system symptoms on review. MENTAL STATUS EXAM: Oriented reasonably. Speech is coherent, has some latency, low in volume. Abstraction fair, computation impaired, language function intact. She is paranoid, suspicious, withdrawn. LABORATORY DATA: Reviewed. IMPRESSION: Schizoaffective disorder, bipolar type, depressed with psychotic features; anxiety disorder, unspecified. PLAN: Increase Luvox to 50 mg at bedtime. If absolute neutrophil count unremarkable, increase Clozaril to 375 mg at bedtime, add trazodone as noted above. She does have marked OCD symptoms. Increase of Luvox should be helpful with this. MAN Marek SHELL MD DR: JESSEE/umer JOB#: [id number] / [id number]
--- NOTE | 2019-08-25 03:44 | PN ---
DATE: 08/23/2019 PSYCHIATRIC PROGRESS NOTE This late entry 08/23/2019 covers the elements not covered in my initial note. I met with the patient evening of 08/23/2019. The patient remains somewhat withdrawn, isolated, paranoid, believes people are stealing from her. She is having some loose stool. Lactulose was held. REVIEW OF SYSTEMS: No CV, , pulmonary, eye system symptoms on review. MENTAL STATUS EXAM: Oriented reasonably. Speech is coherent, has some latency, low in volume. Abstraction fair, computation impaired, language function intact. Mood and affect withdrawn. LABORATORY DATA: Reviewed. IMPRESSION: Unchanged from initial note. PLAN: No change from initial note. MAN Marek SHELL MD DR: JESSEE/umer JOB#: [id number] / [id number]
[2019-08-25 05:08] VITALS: BP 151/96
[2019-08-25] MEDS: LACTULOSE 20 GM/30 ML SOLUTION. PO SCH ×4 (09:43→20:51)
[2019-08-25] MEDS: CHOLECALCIFEROL (VITAMIN D3) 1,000 UNIT TABLET PO SCH (09:44)
[2019-08-25] MEDS: risperiDONE 1 MG TABLET. PO SCH ×2 (09:44→20:36)
[2019-08-25] MEDS: MIRABEGRON 25 MG TAB.ER.24H PO SCH (09:44)
[2019-08-25] MEDS: MULTIVITAMIN with MINERAL TABLET. PO SCH (09:44)
[2019-08-25] MEDS: NICOTINE 21MG PATCH. TD SCH (09:44)
[2019-08-25 15:51] VITALS: BP 105/74
[2019-08-25] MEDS: CALCIUM CARBONATE 500 MG TABLET PO SCH (20:35)
[2019-08-25] MEDS: cloZAPine 100 MG TABLET PO SCH (20:35)
[2019-08-25] MEDS: MIRTAZAPINE 7.5 MG TABLET. PO SCH (20:36)
[2019-08-25] MEDS: cloZAPine 25 MG TABLET PO SCH (20:36)
[2019-08-25] MEDS: traZODone 150 MG TABLET. PO SCH (20:36)
--- NOTE | 2019-08-25 20:49 | PDOC ---
Exam Note: Sami Note: Please also refer to the separate dictated note~for this date of service dictated separately.~Patient seen individually. Discussed the patient with Nursing staff reviewed the chart.~Reviewed interim history and current functioning. Reviewed vital signs,~Labs/ Radiology~and current medications noted below. Continue current treatment with the changes noted in the dictated addendum note Assessment: Vital Signs/I&O: Vital Signs Date Time Temp Pulse Resp B/P (MAP) Pulse Ox O2 Delivery O2 Flow Rate FiO2 08/25/19 15:51 97.6 100 20 105/74 (84) 98 08/25/19 05:08 Room Air I & O 08/24/19 08/24/19 08/25/19 15:00 23:00 07:00 Intake Total 120 ml 240 ml 360 ml Balance 120 ml 240 ml 360 ml Current Medications: Meds: Current Medications Medications (Trade) Dose Ordered Sig/Lynn Route PRN Reason Start Time Stop Time Status Last Admin Dose Admin Clozapine (Clozaril) 300 mg QHS PO 08/25/19 21:00 08/25/19 20:35 Clozapine (Clozaril) 75 mg QHS PO 08/25/19 21:00 08/25/19 20:36 Trazodone HCl (Desyrel) 150 mg QHS PO 08/25/19 21:00 08/25/19 20:36 I have reviewed the current psychotropics carefully including drug interactions. Risk benefit ratio favors no change other than as noted in my dictated progress note. Diagnosis: Problems: (1) Mild cognitive impairment (2) Anxiety disorder (3) Impulse control disorder (4) Schizoaffective disorder, chronic condition with acute exacerbation (5) Psychosis, atypical (6) Seizure disorder MARIALUISA SHELL MD Aug 25, 2019 20:49
[2019-08-25] MEDS: DIVALPROEX ER 500 MG TAB.ER.24H PO SCH (20:51)
[2019-08-25] MEDS ORDERED: cloZAPine 100 MG TABLET PO SCH (21:00)
[2019-08-25] MEDS ORDERED: traZODone 100 MG TABLET. PO SCH (23:00)
[2019-08-25] MEDS ORDERED: traZODone 100 MG TABLET. PO PRN (23:00)
[2019-08-26 05:56] VITALS: BP 126/80
[2019-08-26] MEDS: MIRABEGRON 25 MG TAB.ER.24H PO SCH (12:28)
[2019-08-26] MEDS: ACETAMINOPHEN 325 MG TABLET PO PRN (12:29)
[2019-08-26] MEDS: MULTIVITAMIN with MINERAL TABLET. PO SCH (12:29)
[2019-08-26] MEDS: risperiDONE 1 MG TABLET. PO SCH (12:29)
[2019-08-26] MEDS: NICOTINE 21MG PATCH. TD SCH (12:29)
[2019-08-26] MEDS: LACTULOSE 20 GM/30 ML SOLUTION. PO SCH ×3 (12:29→17:10)
[2019-08-26] MEDS: CHOLECALCIFEROL (VITAMIN D3) 1,000 UNIT TABLET PO SCH (12:29)
[2019-08-26 16:07] VITALS: BP 128/84
--- NOTE | 2019-08-26 19:16 | PN ---
DATE: 08/24/2019 PSYCHIATRIC PROGRESS NOTE This late entry of 08/24/2019 covers elements not covered in my initial note. SUBJECTIVE: I met with the patient in the evening of 08/24/2019. The patient slept 3-1/2 hours previous night. She remains withdrawn, spends much time in her room, paranoid, people are stealing from her. REVIEW OF SYSTEMS: No CV, , pulmonary, eye system symptoms on review. She is lying in bed as I met with her. MENTAL STATUS EXAM: Reasonably oriented. Speech has some latency, low in volume, coherent, abstraction fair, computation impaired, language function intact, attention span short. Mood and affect withdrawn, paranoid. LABORATORY DATA: Reviewed. CBC, ANC unremarkable. IMPRESSION: Unchanged from initial note. PLAN: Increase Clozaril to 375 mg at bedtime. Check weekly CBC, ANC. Increase trazodone from 100 at bedtime, may repeat x 1 to 150 mg at bedtime, may repeat x 1. Rest unchanged for now. MAN Marek SHELL MD DR: JESSEE/umer JOB#: [id number] / [id number]
--- NOTE | 2019-08-26 19:16 | PN ---
DATE: 08/25/2019 PSYCHIATRIC PROGRESS NOTE This late entry 08/25/2019 covers elements not covered in my initial note. SUBJECTIVE: I met with the patient evening of 08/25/2019. I met with her in her room. Per RAND Harley, the patient slept 4-1/2 hours previous night. She is anxious, restless, withdrawn, paranoid, wanting to leave to go back to a long term. Slept after breakfast. REVIEW OF SYSTEMS: No CV, , Pulmonary, eye system symptoms on review. MENTAL STATUS EXAM: Reasonably oriented. Speech moderate latency, low in rate and rhythm, low in volume. Abstraction fair, computation impaired, language function intact. Mood and affect withdrawn. LABORATORY DATA: Reviewed. IMPRESSION: Unchanged from initial note. PLAN: No change from initial note. MAN Marek SHELL MD DR: JESSEE/umer JOB#: [id number] / [id number]
[2019-08-26] MEDS: cloZAPine 100 MG TABLET PO SCH (19:58)
[2019-08-26] MEDS: cloZAPine 25 MG TABLET PO SCH (19:58)
[2019-08-26] MEDS: DIVALPROEX ER 500 MG TAB.ER.24H PO SCH (19:59)
[2019-08-26] MEDS: MIRTAZAPINE 7.5 MG TABLET. PO SCH (19:59)
[2019-08-26] MEDS: traZODone 150 MG TABLET. PO SCH (19:59)
[2019-08-26] MEDS: CALCIUM CARBONATE 500 MG TABLET PO SCH (20:00)
[2019-08-26] MEDS: risperiDONE 0.5 MG TABLET. PO SCH (20:07)
--- NOTE | 2019-08-26 20:39 | PDOC ---
Exam Note: Sami Note: Please also refer to the separate dictated note~for this date of service dictated separately.~Patient seen individually. Discussed the patient with Nursing staff reviewed the chart.~Reviewed interim history and current functioning. Reviewed vital signs,~Labs/ Radiology~and current medications noted below. Continue current treatment with the changes noted in the dictated addendum note Assessment: Vital Signs/I&O: Vital Signs Date Time Temp Pulse Resp B/P (MAP) Pulse Ox O2 Delivery O2 Flow Rate FiO2 08/26/19 16:07 97.5 78 14 128/84 (99) 98 08/25/19 05:08 Room Air I & O 08/25/19 08/25/19 08/26/19 15:00 23:00 07:00 Intake Total 720 ml 240 ml 120 ml Balance 720 ml 240 ml 120 ml Current Medications: Meds: Current Medications Medications (Trade) Dose Ordered Sig/Lynn Route PRN Reason Start Time Stop Time Status Last Admin Dose Admin Clozapine (Clozaril) 300 mg QHS PO 08/25/19 21:00 08/26/19 19:58 Clozapine (Clozaril) 75 mg QHS PO 08/25/19 21:00 08/26/19 19:58 Trazodone HCl (Desyrel) 150 mg QHS PO 08/25/19 21:00 08/26/19 19:59 Risperidone (RisperDAL) 0.5 mg BID PO 08/26/19 21:00 08/29/19 21:00 08/26/19 20:07 I have reviewed the current psychotropics carefully including drug interactions. Risk benefit ratio favors no change other than as noted in my dictated progress note. Diagnosis: Problems: (1) Mild cognitive impairment (2) Anxiety disorder (3) Impulse control disorder (4) Schizoaffective disorder, chronic condition with acute exacerbation (5) Psychosis, atypical (6) Seizure disorder MARIALUISA SHELL MD Aug 26, 2019 20:39
[2019-08-27 06:03] VITALS: BP 117/7
[2019-08-27] MEDS: MIRABEGRON 25 MG TAB.ER.24H PO SCH (09:03)
[2019-08-27] MEDS: risperiDONE 0.5 MG TABLET. PO SCH ×2 (09:04→19:59)
[2019-08-27] MEDS: MULTIVITAMIN with MINERAL TABLET. PO SCH (09:04)
[2019-08-27] MEDS: CHOLECALCIFEROL (VITAMIN D3) 1,000 UNIT TABLET PO SCH (09:08)
[2019-08-27] MEDS: LACTULOSE 20 GM/30 ML SOLUTION. PO SCH (09:08)
[2019-08-27] MEDS: NICOTINE 21MG PATCH. TD SCH (09:08)
[2019-08-27 16:43] VITALS: BP 102/72
[2019-08-27] MEDS: traZODone 150 MG TABLET. PO SCH (19:57)
[2019-08-27] MEDS: cloZAPine 25 MG TABLET PO SCH (19:58)
[2019-08-27] MEDS: MIRTAZAPINE 7.5 MG TABLET. PO SCH (19:58)
[2019-08-27] MEDS: DIVALPROEX ER 500 MG TAB.ER.24H PO SCH (19:58)
[2019-08-27] MEDS: CALCIUM CARBONATE 500 MG TABLET PO SCH (19:59)
[2019-08-27] MEDS: cloZAPine 100 MG TABLET PO SCH (19:59)
--- NOTE | 2019-08-27 20:40 | PDOC ---
Exam Note: Smai Note: Please also refer to the separate dictated note~for this date of service dictated separately.~Patient seen individually. Discussed the patient with Nursing staff reviewed the chart.~Reviewed interim history and current functioning. Reviewed vital signs,~Labs/ Radiology~and current medications noted below. Continue current treatment with the changes noted in the dictated addendum note Assessment: Vital Signs/I&O: Vital Signs Date Time Temp Pulse Resp B/P (MAP) Pulse Ox O2 Delivery O2 Flow Rate FiO2 08/27/19 16:43 97.9 101 20 102/72 (82) 97 08/27/19 06:03 Room Air I & O 08/26/19 08/26/19 08/27/19 15:00 23:00 07:00 Intake Total 240 ml 240 ml Balance 240 ml 240 ml Current Medications: Meds: Current Medications Medications (Trade) Dose Ordered Sig/Lynn Route PRN Reason Start Time Stop Time Status Last Admin Dose Admin Risperidone (RisperDAL) 0.5 mg BID PO 08/26/19 21:00 08/29/19 21:00 08/27/19 19:59 Lactulose (Lactulose) 20 gm DAILY PO 08/27/19 09:00 08/27/19 09:08 I have reviewed the current psychotropics carefully including drug interactions. Risk benefit ratio favors no change other than as noted in my dictated progress note. Diagnosis: Problems: (1) Mild cognitive impairment (2) Anxiety disorder (3) Impulse control disorder (4) Schizoaffective disorder, chronic condition with acute exacerbation (5) Psychosis, atypical (6) Seizure disorder MARIALUISA SHELL MD Aug 27, 2019 20:40
[2019-08-28 06:18] VITALS: BP 134/82
[2019-08-28 06:23] VITALS: BP 134/82
[2019-08-28] MEDS: MULTIVITAMIN with MINERAL TABLET. PO SCH (08:25)
[2019-08-28] MEDS: risperiDONE 0.5 MG TABLET. PO SCH ×2 (08:25→19:43)
[2019-08-28] MEDS: CHOLECALCIFEROL (VITAMIN D3) 1,000 UNIT TABLET PO SCH (08:25)
[2019-08-28] MEDS: MIRABEGRON 25 MG TAB.ER.24H PO SCH (08:25)
[2019-08-28] MEDS: LACTULOSE 20 GM/30 ML SOLUTION. PO SCH (08:26)
[2019-08-28] MEDS: NICOTINE 21MG PATCH. TD SCH (08:26)
--- NOTE | 2019-08-28 12:51 | PN ---
DATE: 08/26/2019 PSYCHIATRIC PROGRESS NOTE This late entry 08/26/2019 covers elements not covered in my initial note. SUBJECTIVE: I met with the patient in the evening. According to RAND Torres, the patient slept 7-1/4 hours previous night. She did not get up until noon, took her a.m. medications at noon, ate 25% of lunch. Seems less psychotic, but obsessing about going back to [facility]. REVIEW OF SYSTEMS: No CV, , pulmonary, eye system symptoms on review. Does admit to some tiredness. MENTAL STATUS EXAM: Oriented to herself and situation. Speech has some latency, low in rate and rhythm, low in volume, coherent, abstraction fair, computation impaired, language function intact, attention span short. She is somewhat paranoid. No suicidal or homicidal ideation. LABORATORY DATA: Reviewed. IMPRESSION: Schizoaffective disorder, bipolar type, mixed with psychotic features, in partial remission; obsessive-compulsive disorder; anxiety disorder, unspecified. Rest unchanged. PLAN: Maintain Clozaril 375 mg at bedtime, Depakote ER 500 mg at bedtime, level therapeutic at 62, Remeron 7.5 mg at bedtime, Luvox 25 mg daily, may need to increase gradually. She is also on Risperdal 1 mg at bedtime. Since we have increased the Clozaril, we will drop the Risperdal down to 0.5 mg daily for 3 days and then stop it to avoid using 2 antipsychotics in combination. May need to increase Luvox gradually as well. Maintain Depakote at current dosage since level is therapeutic. MAN Marek SHELL MD DR: JESSEE/umer JOB#: [id number] / [id number]
[2019-08-28 16:03] VITALS: BP 133/78
--- NOTE | 2019-08-28 19:26 | PN ---
DATE: 08/27/2019 PSYCHIATRIC PROGRESS NOTE This late entry 08/27/2019 covers the elements not covered in my initial note. SUBJECTIVE: I met with the patient in the evening at length and staffed at a treatment team meeting with the entire team in the morning. The patient is sleeping average 8-1/2 hours, somewhat withdrawn, less psychotic, very obsessive, ruminating about discharge and I addressed at length with her in the evening. REVIEW OF SYSTEMS: No CV, , pulmonary, eye system symptoms on review. Complains of some tiredness. MENTAL STATUS EXAM: Oriented to herself and situation. Speech has some latency, low in volume, coherent, abstraction fair, computation impaired, language function intact, attention span short. Mood and affect still somewhat withdrawn, less paranoid, less psychotic, despite reduction of the Risperdal. LABORATORY DATA: Reviewed. IMPRESSION: Unchanged from initial note. PLAN: No change from initial note. Increase Luvox to 50 mg daily after she has been on 25 for 3 days. Continue rest unchanged, Depakote, Remeron, Clozaril and stop the Risperdal. MAN Marek SHELL MD DR: JESSEE/umer JOB#: [id number] / [id number]
[2019-08-28] MEDS: MIRTAZAPINE 7.5 MG TABLET. PO SCH (19:43)
[2019-08-28] MEDS: DIVALPROEX ER 500 MG TAB.ER.24H PO SCH (19:43)
[2019-08-28] MEDS: CALCIUM CARBONATE 500 MG TABLET PO SCH (19:43)
[2019-08-28] MEDS: traZODone 150 MG TABLET. PO SCH (19:43)
[2019-08-28] MEDS: cloZAPine 25 MG TABLET PO SCH (19:44)
[2019-08-28] MEDS: cloZAPine 100 MG TABLET PO SCH (19:44)
--- NOTE | 2019-08-28 20:53 | PDOC ---
Exam Note: Sami Note: Please also refer to the separate dictated note~for this date of service dictated separately.~Patient seen individually. Discussed the patient with Nursing staff reviewed the chart.~Reviewed interim history and current functioning. Reviewed vital signs,~Labs/ Radiology~and current medications noted below. Continue current treatment with the changes noted in the dictated addendum note Assessment: Vital Signs/I&O: Vital Signs Date Time Temp Pulse Resp B/P (MAP) Pulse Ox O2 Delivery O2 Flow Rate FiO2 08/28/19 16:03 98.4 89 16 133/78 (96) 99 08/28/19 06:18 Room Air I & O 08/27/19 08/27/19 08/28/19 15:00 23:00 07:00 Intake Total 1200 ml 480 ml 240 ml Balance 1200 ml 480 ml 240 ml Current Medications: Meds: Current Medications Medications (Trade) Dose Ordered Sig/Lynn Route PRN Reason Start Time Stop Time Status Last Admin Dose Admin Fluvoxamine Maleate (Luvox) 75 mg DAILY PO 08/28/19 09:00 08/28/19 08:25 I have reviewed the current psychotropics carefully including drug interactions. Risk benefit ratio favors no change other than as noted in my dictated progress note. Diagnosis: Problems: (1) Mild cognitive impairment (2) Anxiety disorder (3) Impulse control disorder (4) Schizoaffective disorder, chronic condition with acute exacerbation (5) Psychosis, atypical (6) Seizure disorder MARIALUISA SHELL MD Aug 28, 2019 20:53
[2019-08-29 05:16] VITALS: BP 117/70
[2019-08-29] MEDS: LACTULOSE 20 GM/30 ML SOLUTION. PO SCH (08:34)
[2019-08-29] MEDS: NICOTINE 21MG PATCH. TD SCH (08:34)
[2019-08-29] MEDS: MIRABEGRON 25 MG TAB.ER.24H PO SCH (08:35)
[2019-08-29] MEDS: CHOLECALCIFEROL (VITAMIN D3) 1,000 UNIT TABLET PO SCH (08:35)
[2019-08-29] MEDS: MULTIVITAMIN with MINERAL TABLET. PO SCH (08:35)
[2019-08-29] MEDS: risperiDONE 0.5 MG TABLET. PO SCH ×2 (08:35→20:22)
[2019-08-29 15:56] VITALS: BP 131/87
[2019-08-29] MEDS: cloZAPine 25 MG TABLET PO SCH (20:21)
[2019-08-29] MEDS: cloZAPine 100 MG TABLET PO SCH (20:21)
[2019-08-29] MEDS: traZODone 150 MG TABLET. PO SCH (20:22)
[2019-08-29] MEDS: MIRTAZAPINE 7.5 MG TABLET. PO SCH (20:22)
[2019-08-29] MEDS: CALCIUM CARBONATE 500 MG TABLET PO SCH (20:22)
[2019-08-29] MEDS: DIVALPROEX ER 500 MG TAB.ER.24H PO SCH (20:22)
--- NOTE | 2019-08-29 20:42 | PDOC ---
Exam Note: Sami Note: Please also refer to the separate dictated note~for this date of service dictated separately.~Patient seen individually. Discussed the patient with Nursing staff reviewed the chart.~Reviewed interim history and current functioning. Reviewed vital signs,~Labs/ Radiology~and current medications noted below. Continue current treatment with the changes noted in the dictated addendum note Assessment: Vital Signs/I&O: Vital Signs Date Time Temp Pulse Resp B/P (MAP) Pulse Ox O2 Delivery O2 Flow Rate FiO2 08/29/19 15:56 98.0 97 16 131/87 (102) 96 08/29/19 05:16 Room Air I & O 08/28/19 08/28/19 08/29/19 15:00 23:00 07:00 Intake Total 1400 ml 480 ml 240 ml Balance 1400 ml 480 ml 240 ml Current Medications: I have reviewed the current psychotropics carefully including drug interactions. Risk benefit ratio favors no change other than as noted in my dictated progress note. Diagnosis: Problems: (1) Mild cognitive impairment (2) Anxiety disorder (3) Impulse control disorder (4) Schizoaffective disorder, chronic condition with acute exacerbation (5) Psychosis, atypical (6) Seizure disorder MARIALUISA SHELL MD Aug 29, 2019 20:42
[2019-08-30] MEDS: NICOTINE 21MG PATCH. TD SCH (06:19)
[2019-08-30] MEDS: MULTIVITAMIN with MINERAL TABLET. PO SCH (06:19)
[2019-08-30] MEDS: MIRABEGRON 25 MG TAB.ER.24H PO SCH (06:19)
[2019-08-30] MEDS: CHOLECALCIFEROL (VITAMIN D3) 1,000 UNIT TABLET PO SCH (06:19)
[2019-08-30] MEDS: LACTULOSE 20 GM/30 ML SOLUTION. PO SCH (06:25)
[2019-08-30 06:30] VITALS: BP 112/68
[2019-08-30 08:47] LABS: BASO # 0.1 x10^3/uL (0.0-0.2); BASO % 1 % (0-3); EOS # 0.2 x10^3/uL (0.0-0.7); EOS % 3 % (0-3); HEMATOCRIT 39.4 % (36.0-47.0); HEMOGLOBIN 13.1 g/dL (12.0-15.5); LYMPH # 2.4 x10^3/uL (1.0-4.8); LYMPH % 33 % (24-48); MEAN CORPUSCULAR HEMOGLOBIN 33 pg (25-35); MEAN CORPUSCULAR HGB CONC 33 g/dL (31-37); MEAN CORPUSCULAR VOLUME 99 fL (79-100); MONO # 0.6 x10^3/uL (0.0-1.1); MONO % 8 % (0-9); NEUT # 4.1 x10^3uL (1.8-7.7); NEUT % 55 % (31-73); PLATELET COUNT 161 x10^3/uL (140-400); RED CELL DISTRIBUTION WIDTH 14.7 % (11.5-14.5); WHITE BLOOD COUNT 7.4 x10^3/uL (4.0-11.0)
[2019-08-30 08:56] LABS: ALBUMIN 3.2 g/dL (3.4-5.0); ALBUMIN/GLOBULIN RATIO 0.7 (1.0-1.7); CALCIUM 9.5 mg/dL (8.5-10.1); CREATININE 1.1 mg/dL (0.6-1.0); GFR 60.9; POTASSIUM 4.2 mmol/L (3.5-5.1); TOTAL BILIRUBIN 0.4 mg/dL (0.2-1.0); TOTAL PROTEIN 7.6 g/dL (6.4-8.2)
[2019-08-30 09:17] LABS: BACTERIA,URINE MANY /HPF (0-FEW); BILIRUBIN,URINE NEG (NEG); CLARITY,URINE TURBID; COLOR,URINE YELLOW; GLUCOSE,URINE NEG (NEG); NITRITE,URINE POS (NEG); SQUAMOUS EPITHELIAL CELL,UR FEW /LPF; UROBILINOGEN,URINE 0.2 mg/dL (0.2 mg/dL); WBC,URINE >40 /HPF (0-4)
[2019-08-30 16:09] VITALS: BP 131/90
--- NOTE | 2019-08-30 16:15 | PN ---
DATE: 08/28/2019 PSYCHIATRIC PROGRESS NOTE This late entry 08/28/2019 covers elements not covered in my initial note. SUBJECTIVE: I met with the patient evening of 08/28/2019. Per RAND Ho, the patient slept 6-1/2 hours previous night. She has been irritable in the morning, impatient with medications, spilled the water and was angry, upset dumped her Ensure in the coffee of another demented patient. REVIEW OF SYSTEMS: Ambulation impaired. No CV, , pulmonary, eye system symptoms on review. MENTAL STATUS EXAM: Oriented to herself and situation. Speech has some latency, often responses monosyllabic, coherent. Abstraction fair, computation impaired, language function intact, attention span short. Mood and affect remain somewhat withdrawn, less paranoid. LABORATORY DATA: Reviewed. IMPRESSION: Schizoaffective disorder, bipolar type, mixed with psychotic features. PLAN: Continue current psychotropics. Clozaril may need to be increased further. Maintain trazodone, weekly CBC, absolute neutrophil counts have been ordered. Risperdal has been tapered as Clozaril is being increased. MAN Marek SHELL MD DR: JESSEE/umer JOB#: [id number] / [id number]
[2019-08-30] MEDS: cloZAPine 25 MG TABLET PO SCH (20:31)
[2019-08-30] MEDS: DIVALPROEX ER 500 MG TAB.ER.24H PO SCH (20:31)
[2019-08-30] MEDS: CALCIUM CARBONATE 500 MG TABLET PO SCH (20:31)
[2019-08-30] MEDS: MIRTAZAPINE 7.5 MG TABLET. PO SCH (20:31)
[2019-08-30] MEDS: cloZAPine 100 MG TABLET PO SCH (20:32)
[2019-08-30] MEDS: traZODone 150 MG TABLET. PO SCH (20:32)
--- NOTE | 2019-08-30 20:32 | PDOC ---
Exam Note: Sami Note: Please also refer to the separate dictated note~for this date of service dictated separately.~Patient seen individually. Discussed the patient with Nursing staff reviewed the chart.~Reviewed interim history and current functioning. Reviewed vital signs,~Labs/ Radiology~and current medications noted below. Continue current treatment with the changes noted in the dictated addendum note Assessment: Vital Signs/I&O: Vital Signs Date Time Temp Pulse Resp B/P (MAP) Pulse Ox O2 Delivery O2 Flow Rate FiO2 08/30/19 16:09 98.4 97 20 131/90 (104) 96 08/29/19 05:16 Room Air I & O 08/29/19 08/29/19 08/30/19 14:59 22:59 06:59 Intake Total 1860 ml 600 ml Balance 1860 ml 600 ml Labs: Laboratory Tests Test 08/30/19 08:05 08/30/19 08:23 White Blood Count 7.4 x10^3/uL (4.0-11.0) Red Blood Count 4.00 x10^6/uL (3.50-5.40) Hemoglobin 13.1 g/dL (12.0-15.5) Hematocrit 39.4 % (36.0-47.0) Mean Corpuscular Volume 99 fL (79-100) Mean Corpuscular Hemoglobin 33 pg (25-35) Mean Corpuscular Hemoglobin Concent 33 g/dL (31-37) Red Cell Distribution Width 14.7 % (11.5-14.5) H Platelet Count 161 x10^3/uL (140-400) Neutrophils (%) (Auto) 55 % (31-73) Lymphocytes (%) (Auto) 33 % (24-48) Monocytes (%) (Auto) 8 % (0-9) Eosinophils (%) (Auto) 3 % (0-3) Basophils (%) (Auto) 1 % (0-3) Neutrophils # (Auto) 4.1 x10^3uL (1.8-7.7) Lymphocytes # (Auto) 2.4 x10^3/uL (1.0-4.8) Monocytes # (Auto) 0.6 x10^3/uL (0.0-1.1) Eosinophils # (Auto) 0.2 x10^3/uL (0.0-0.7) Basophils # (Auto) 0.1 x10^3/uL (0.0-0.2) Sodium Level 141 mmol/L (136-145) Potassium Level 4.2 mmol/L (3.5-5.1) Chloride Level 103 mmol/L (98-107) Carbon Dioxide Level 29 mmol/L (21-32) Anion Gap 9 (6-14) Blood Urea Nitrogen 15 mg/dL (7-20) Creatinine 1.1 mg/dL (0.6-1.0) H Estimated GFR (Cockcroft-Gault) 60.9 BUN/Creatinine Ratio 14 (6-20) Glucose Level 98 mg/dL (70-99) Calcium Level 9.5 mg/dL (8.5-10.1) Total Bilirubin 0.4 mg/dL (0.2-1.0) Aspartate Amino Transferase (AST) 39 U/L (15-37) H Alanine Aminotransferase (ALT) 38 U/L (14-59) Alkaline Phosphatase 125 U/L (46-116) H Total Protein 7.6 g/dL (6.4-8.2) Albumin 3.2 g/dL (3.4-5.0) L Albumin/Globulin Ratio 0.7 (1.0-1.7) L Urine Collection Type Unknown Urine Color Yellow Urine Clarity Turbid Urine pH 7.5 Urine Specific [place] 1.015 Urine Protein Trace (NEG-TRACE) Urine Glucose (UA) Neg mg/dL (NEG) Urine Ketones (Stick) Neg mg/dL (NEG) Urine Blood Small (NEG) Urine Nitrite Pos (NEG) Urine Bilirubin Neg (NEG) Urine Urobilinogen Dipstick 0.2 mg/dL (0.2 mg/dL) Urine Leukocyte Esterase Large (NEG) Urine RBC 3-5 /HPF (0-2) Urine WBC >40 /HPF (0-4) Urine Squamous Epithelial Cells Few /LPF Urine Transitional Epithelial Cells Occ /LPF Urine Bacteria Many /HPF (0-FEW) Current Medications: I have reviewed the current psychotropics carefully including drug interactions. Risk benefit ratio favors no change other than as noted in my dictated progress note. Diagnosis: Problems: (1) Mild cognitive impairment (2) Anxiety disorder (3) Impulse control disorder (4) Schizoaffective disorder, chronic condition with acute exacerbation (5) Psychosis, atypical (6) Seizure disorder SUMAYAMAN M MD Aug 30, 2019 20:32
--- NOTE | 2019-08-30 23:47 | PN ---
DATE: 08/29/2019 PSYCHIATRIC PROGRESS NOTE This late entry, 08/29, covers elements not covered in my initial note. SUBJECTIVE: I met with the patient evening of 08/29. The patient slept 7-1/2 hours previous night. The patient remains isolative, comes out for meals and back to room after that. REVIEW OF SYSTEMS: No CV, , pulmonary, eye system symptoms on review. She does complain of being tired. MENTAL STATUS EXAMINATION: Oriented to herself and situation. Speech moderate latency, often responses monosyllabic. Abstraction fair, computation impaired, language function intact. She is still paranoid, but less so than before. LABORATORY DATA: Reviewed. IMPRESSION: Schizoaffective disorder, bipolar type, mixed with psychotic features. Rest unchanged. PLAN: Taper and stop the Risperdal since we have increased the Clozaril. Maintain Remeron, Luvox, Depakote, trazodone. Check CBC, absolute neutrophil count on Saturday, 08/31. Then, increase Clozaril further as indicated. MAN Marek SHELL MD DR: JESSEE/umer JOB#: [id number] / [id number]
[2019-08-31 05:47] VITALS: BP 93/56
[2019-08-31 07:29] LABS: BASO # 0.1 x10^3/uL (0.0-0.2); BASO % 1 % (0-3); EOS # 0.2 x10^3/uL (0.0-0.7); EOS % 4 % (0-3); HEMATOCRIT 36.6 % (36.0-47.0); HEMOGLOBIN 12.2 g/dL (12.0-15.5); LYMPH % 31 % (24-48); MEAN CORPUSCULAR HEMOGLOBIN 33 pg (25-35); MEAN CORPUSCULAR HGB CONC 33 g/dL (31-37); MEAN CORPUSCULAR VOLUME 98 fL (79-100); MONO # 0.5 x10^3/uL (0.0-1.1); MONO % 8 % (0-9); NEUT # 3.7 x10^3uL (1.8-7.7); NEUT % 57 % (31-73); PLATELET COUNT 147 x10^3/uL (140-400); RED BLOOD COUNT 3.73 x10^6/uL (3.50-5.40); RED CELL DISTRIBUTION WIDTH 14.4 % (11.5-14.5); WHITE BLOOD COUNT 6.5 x10^3/uL (4.0-11.0)
[2019-08-31] MEDS: NICOTINE 21MG PATCH. TD SCH (08:22)
[2019-08-31] MEDS: MULTIVITAMIN with MINERAL TABLET. PO SCH (08:22)
[2019-08-31] MEDS: CHOLECALCIFEROL (VITAMIN D3) 1,000 UNIT TABLET PO SCH (08:23)
[2019-08-31] MEDS: LACTULOSE 20 GM/30 ML SOLUTION. PO SCH (08:23)
[2019-08-31] MEDS: MIRABEGRON 25 MG TAB.ER.24H PO SCH (08:23)
[2019-08-31 15:39] VITALS: BP 104/70
--- NOTE | 2019-08-31 20:10 | PDOC ---
Exam Note: Sami Note: Please also refer to the separate dictated note~for this date of service dictated separately.~Patient seen individually. Discussed the patient with Nursing staff reviewed the chart.~Reviewed interim history and current functioning. Reviewed vital signs,~Labs/ Radiology~and current medications noted below. Continue current treatment with the changes noted in the dictated addendum note Assessment: Vital Signs/I&O: Vital Signs Date Time Temp Pulse Resp B/P (MAP) Pulse Ox O2 Delivery O2 Flow Rate FiO2 08/31/19 15:39 97.6 87 18 104/70 (81) 100 08/31/19 05:47 Room Air I & O 08/30/19 08/30/19 08/31/19 15:00 23:00 07:00 Intake Total 960 ml 480 ml 100 ml Balance 960 ml 480 ml 100 ml Labs: Laboratory Tests Test 08/31/19 07:09 White Blood Count 6.5 x10^3/uL (4.0-11.0) Red Blood Count 3.73 x10^6/uL (3.50-5.40) Hemoglobin 12.2 g/dL (12.0-15.5) Hematocrit 36.6 % (36.0-47.0) Mean Corpuscular Volume 98 fL (79-100) Mean Corpuscular Hemoglobin 33 pg (25-35) Mean Corpuscular Hemoglobin Concent 33 g/dL (31-37) Red Cell Distribution Width 14.4 % (11.5-14.5) Platelet Count 147 x10^3/uL (140-400) Neutrophils (%) (Auto) 57 % (31-73) Lymphocytes (%) (Auto) 31 % (24-48) Monocytes (%) (Auto) 8 % (0-9) Eosinophils (%) (Auto) 4 % (0-3) H Basophils (%) (Auto) 1 % (0-3) Neutrophils # (Auto) 3.7 x10^3uL (1.8-7.7) Lymphocytes # (Auto) 2.0 x10^3/uL (1.0-4.8) Monocytes # (Auto) 0.5 x10^3/uL (0.0-1.1) Eosinophils # (Auto) 0.2 x10^3/uL (0.0-0.7) Basophils # (Auto) 0.1 x10^3/uL (0.0-0.2) Current Medications: I have reviewed the current psychotropics carefully including drug interactions. Risk benefit ratio favors no change other than as noted in my dictated progress note. Diagnosis: Problems: (1) Mild cognitive impairment (2) Anxiety disorder (3) Impulse control disorder (4) Schizoaffective disorder, chronic condition with acute exacerbation (5) Psychosis, atypical (6) Seizure disorder MARIALUISA SHELL MD Aug 31, 2019 20:10
[2019-08-31] MEDS: MIRTAZAPINE 7.5 MG TABLET. PO SCH (20:30)
[2019-08-31] MEDS: DIVALPROEX ER 500 MG TAB.ER.24H PO SCH (20:30)
[2019-08-31] MEDS: cloZAPine 100 MG TABLET PO SCH (20:30)
[2019-08-31] MEDS: CALCIUM CARBONATE 500 MG TABLET PO SCH (20:30)
[2019-08-31] MEDS: traZODone 150 MG TABLET. PO SCH (20:30)
[2019-08-31] MEDS: cloZAPine 25 MG TABLET PO SCH (20:30)
[2019-09-01] MEDS: MAGNESIUM HYDROXIDE 2,400 MG/30 ML ORAL.SUSP. PO PRN (00:02)
--- NOTE | 2019-09-01 00:53 | PN ---
DATE: 08/30/2019 PSYCHIATRIC PROGRESS NOTE. This late entry of 08/30/2019 covers the elements not covered in my initial note. SUBJECTIVE: I met with the patient in the evening in her room. The patient still remains withdrawn, spends much time in room other than when she goes out for meals, does come out to groups at times. She was up in the morning, then back to bed. UA, C and S is awaited. Urine is very foul smelling and this could be partly contributing to her psychiatric symptoms as well. REVIEW OF SYSTEMS: No CV, , pulmonary, eye system symptoms on review. MENTAL STATUS EXAM: Oriented to herself and situation. Speech is coherent, has some latency. Abstraction fair, computation impaired, language function intact, attention span short. She is still paranoid, suspicious, less so than before. LABORATORY DATA: Reviewed. IMPRESSION: Schizoaffective disorder, bipolar type, mixed with psychotic features, in partial remission, probable urinary tract infection. Rest unchanged. PLAN: No change from initial note. MAN Marek SHELL MD DR: JESSEE/umer JOB#: [id number] / [id number]
[2019-09-01 06:22] VITALS: BP 126/86
[2019-09-01] MEDS: LACTULOSE 20 GM/30 ML SOLUTION. PO SCH (09:15)
[2019-09-01] MEDS: MIRABEGRON 25 MG TAB.ER.24H PO SCH (09:16)
[2019-09-01] MEDS: MULTIVITAMIN with MINERAL TABLET. PO SCH (09:16)
[2019-09-01] MEDS: CHOLECALCIFEROL (VITAMIN D3) 1,000 UNIT TABLET PO SCH (09:16)
[2019-09-01] MEDS: NICOTINE 21MG PATCH. TD SCH (09:16)
[2019-09-01 16:10] VITALS: BP 101/72
--- NOTE | 2019-09-01 19:56 | PDOC ---
Exam Note: Sami Note: Please also refer to the separate dictated note~for this date of service dictated separately.~Patient seen individually. Discussed the patient with Nursing staff reviewed the chart.~Reviewed interim history and current functioning. Reviewed vital signs,~Labs/ Radiology~and current medications noted below. Continue current treatment with the changes noted in the dictated addendum note Assessment: Vital Signs/I&O: Vital Signs Date Time Temp Pulse Resp B/P (MAP) Pulse Ox O2 Delivery O2 Flow Rate FiO2 09/01/19 16:10 98.1 97 18 101/72 (82) 99 08/31/19 05:47 Room Air I & O 08/31/19 08/31/19 09/01/19 15:00 23:00 07:00 Intake Total 1200 ml 360 ml 120 ml Balance 1200 ml 360 ml 120 ml Current Medications: I have reviewed the current psychotropics carefully including drug interactions. Risk benefit ratio favors no change other than as noted in my dictated progress note. Diagnosis: Problems: (1) Mild cognitive impairment (2) Anxiety disorder (3) Impulse control disorder (4) Schizoaffective disorder, chronic condition with acute exacerbation (5) Psychosis, atypical (6) Seizure disorder MARIALUISA SHELL MD Sep 01, 2019 19:56
--- NOTE | 2019-09-01 20:14 | PN ---
DATE: 08/31/2019 This late entry, 08/31/2019, covers elements not covered in my initial note. SUBJECTIVE: I met with the patient in the evening of 08/31/2019 in her room. According to RAND Al, the patient slept 9 hours previous night. Her UA has reflux to culture. She has been irritable during activities, playing the Pictionary game, somewhat inappropriate at times. REVIEW OF SYSTEMS: Positive for tiredness. No CV, , pulmonary, or eye system symptoms on review. MENTAL STATUS EXAM: Reasonably oriented. Speech is coherent, low in volume. Abstraction fair, computation impaired, language function intact, and attention span short. Mood and affect somewhat withdrawn, less paranoid, still suspicious. LABORATORY DATA: Reviewed. IMPRESSION: Unchanged from initial note. PLAN: No change from initial note and once UA C and S returns, UTI should be treated, which should help overall with her psychotic symptoms. MARIALUISA SHELL MD DR: JESSEE/umer JOB#: [id number] / [id number]
[2019-09-01] MEDS: MIRTAZAPINE 7.5 MG TABLET. PO SCH (21:01)
[2019-09-01] MEDS: traZODone 150 MG TABLET. PO SCH (21:01)
[2019-09-01] MEDS: DIVALPROEX ER 500 MG TAB.ER.24H PO SCH (21:01)
[2019-09-01] MEDS: CALCIUM CARBONATE 500 MG TABLET PO SCH (21:02)
[2019-09-01] MEDS: cloZAPine 100 MG TABLET PO SCH (21:02)
[2019-09-02 06:10] VITALS: BP 149/82
[2019-09-02] MEDS: LACTULOSE 20 GM/30 ML SOLUTION. PO SCH (10:16)
[2019-09-02] MEDS: NICOTINE 21MG PATCH. TD SCH (10:17)
[2019-09-02] MEDS: MULTIVITAMIN with MINERAL TABLET. PO SCH (10:17)
[2019-09-02] MEDS: MIRABEGRON 25 MG TAB.ER.24H PO SCH (10:17)
[2019-09-02] MEDS: CHOLECALCIFEROL (VITAMIN D3) 1,000 UNIT TABLET PO SCH (10:17)
[2019-09-02 16:07] LABS: C ANCA <1:20 titer (Neg:<1:20); P ANCA <1:20 titer (Neg:<1:20)
[2019-09-02 16:30] VITALS: BP 90/60
--- NOTE | 2019-09-02 19:54 | PDOC ---
Exam Note: Sami Note: Please also refer to the separate dictated note~for this date of service dictated separately.~Patient seen individually. Discussed the patient with Nursing staff reviewed the chart.~Reviewed interim history and current functioning. Reviewed vital signs,~Labs/ Radiology~and current medications noted below. Continue current treatment with the changes noted in the dictated addendum note Assessment: Vital Signs/I&O: Vital Signs Date Time Temp Pulse Resp B/P (MAP) Pulse Ox O2 Delivery O2 Flow Rate FiO2 09/02/19 16:30 97.4 60 20 90/60 (70) 97 08/31/19 05:47 Room Air I & O 09/01/19 09/01/19 09/02/19 15:00 23:00 07:00 Intake Total 240 ml 480 ml Balance 240 ml 480 ml Current Medications: Meds: Current Medications Medications (Trade) Dose Ordered Sig/Lynn Route PRN Reason Start Time Stop Time Status Last Admin Dose Admin Clozapine (Clozaril) 400 mg HS PO 09/01/19 21:00 09/01/19 21:02 I have reviewed the current psychotropics carefully including drug interactions. Risk benefit ratio favors no change other than as noted in my dictated progress note. Diagnosis: Problems: (1) Mild cognitive impairment (2) Anxiety disorder (3) Impulse control disorder (4) Schizoaffective disorder, chronic condition with acute exacerbation (5) Psychosis, atypical (6) Seizure disorder MARIALUISA SHELL MD Sep 02, 2019 19:54
[2019-09-02] MEDS: CEFDINIR 300 MG CAPSULE PO SCH (20:05)
[2019-09-02] MEDS: cloZAPine 100 MG TABLET PO SCH (20:05)
[2019-09-02] MEDS: traZODone 150 MG TABLET. PO SCH (20:05)
[2019-09-02] MEDS: CALCIUM CARBONATE 500 MG TABLET PO SCH (20:05)
[2019-09-02] MEDS: DIVALPROEX ER 500 MG TAB.ER.24H PO SCH (20:05)
[2019-09-02] MEDS: MIRTAZAPINE 7.5 MG TABLET. PO SCH (20:05)
[2019-09-02] MEDS: ACETAMINOPHEN 325 MG TABLET PO PRN (20:14)
[2019-09-02] MEDS: MAGNESIUM HYDROXIDE 2,400 MG/30 ML ORAL.SUSP. PO PRN (20:51)
--- NOTE | 2019-09-03 01:46 | PN ---
DATE: 09/01/2019 PSYCHIATRIC PROGRESS NOTE. This late entry of 09/01/2019 covers the elements not covered in my initial note. SUBJECTIVE: I met with the patient in the evening. Per RAND Casper, the patient slept 6-1/2 hours previous night. She has been withdrawn, suspicious that someone is going to take her belongings. I met with her in her room. REVIEW OF SYSTEMS: Positive for tiredness, impaired ambulation. No CV, , pulmonary, eye system symptoms on review. MENTAL STATUS EXAM: Oriented to herself and situation. Speech has some latency, low in volume, coherent, abstraction fair, computation impaired, language function intact. Mood and affect withdrawn, somewhat paranoid. LABORATORY DATA: Reviewed. IMPRESSION: Unchanged from initial note. PLAN: WBC 6.5, neutrophils 57%, adequate. We will increase Clozaril from 375 mg at bedtime to 400 mg at bedtime, Risperdal has been stopped. Maintain Luvox 75 mg a day, Remeron 7.5 mg at bedtime, Depakote ER 500 mg at bedtime, level therapeutic at 62, trazodone p.r.n. MAN Marek SHELL MD DR: JESSEE/umer JOB#: [id number] / [id number]
[2019-09-03 06:01] VITALS: BP 106/57
[2019-09-03] MEDS: MIRABEGRON 25 MG TAB.ER.24H PO SCH (08:36)
[2019-09-03] MEDS: LACTULOSE 20 GM/30 ML SOLUTION. PO SCH (08:36)
[2019-09-03] MEDS: MULTIVITAMIN with MINERAL TABLET. PO SCH (08:36)
[2019-09-03] MEDS: NICOTINE 21MG PATCH. TD SCH (08:36)
[2019-09-03] MEDS: CHOLECALCIFEROL (VITAMIN D3) 1,000 UNIT TABLET PO SCH (08:36)
[2019-09-03] MEDS: CEFDINIR 300 MG CAPSULE PO SCH ×2 (08:36→20:33)
--- NOTE | 2019-09-03 15:16 | RAD ---
EXAM: Abdomen, single view. HISTORY: Constipation. COMPARISON: None. FINDINGS: A frontal view of the abdomen is obtained. There are prominent air-filled loops of bowel throughout the abdomen. There is no clear transition point. There are cholecystectomy clips. IMPRESSION: Prominent air-filled loops of bowel throughout the abdomen. This may be due to ileus or distal partial obstruction. Electronically signed by: Radha Walls MD (09/03/2019 3:13 PM) [facility]
[2019-09-03 16:03] VITALS: BP 99/69
--- NOTE | 2019-09-03 19:59 | PDOC ---
Exam Note: Sami Note: Please also refer to the separate dictated note~for this date of service dictated separately.~Patient seen individually. Discussed the patient with Nursing staff reviewed the chart.~Reviewed interim history and current functioning. Reviewed vital signs,~Labs/ Radiology~and current medications noted below. Continue current treatment with the changes noted in the dictated addendum note Assessment: Vital Signs/I&O: Vital Signs Date Time Temp Pulse Resp B/P (MAP) Pulse Ox O2 Delivery O2 Flow Rate FiO2 09/03/19 16:03 97.7 102 20 99/69 (79) 96 08/31/19 05:47 Room Air I & O 09/02/19 09/02/19 09/03/19 15:00 23:00 07:00 Intake Total 4850 ml 360 ml Balance 4850 ml 360 ml Current Medications: Meds: Current Medications Medications (Trade) Dose Ordered Sig/Lynn Route PRN Reason Start Time Stop Time Status Last Admin Dose Admin Cefdinir (Omnicef) 300 mg BID PO 09/02/19 21:00 09/09/19 19:00 09/03/19 08:36 I have reviewed the current psychotropics carefully including drug interactions. Risk benefit ratio favors no change other than as noted in my dictated progress note. Diagnosis: Problems: (1) Mild cognitive impairment (2) Anxiety disorder (3) Impulse control disorder (4) Schizoaffective disorder, chronic condition with acute exacerbation (5) Psychosis, atypical (6) Seizure disorder MARIALUISA SHELL MD Sep 03, 2019 19:59
[2019-09-03] MEDS: traZODone 150 MG TABLET. PO SCH (20:32)
[2019-09-03] MEDS: DIVALPROEX ER 500 MG TAB.ER.24H PO SCH (20:32)
[2019-09-03] MEDS: LACTOBACILLUS RHAMNOSUS GG 1 CAPSULE. PO SCH (20:32)
[2019-09-03] MEDS: cloZAPine 100 MG TABLET PO SCH (20:32)
[2019-09-03] MEDS: MIRTAZAPINE 7.5 MG TABLET. PO SCH (20:33)
[2019-09-03] MEDS: CALCIUM CARBONATE 500 MG TABLET PO SCH (20:33)
[2019-09-04 06:04] VITALS: BP 99/68
[2019-09-04] MEDS: NICOTINE 21MG PATCH. TD SCH (08:16)
[2019-09-04] MEDS: LACTULOSE 20 GM/30 ML SOLUTION. PO SCH (08:16)
[2019-09-04] MEDS: CEFDINIR 300 MG CAPSULE PO SCH ×2 (08:16→20:06)
[2019-09-04] MEDS: MIRABEGRON 25 MG TAB.ER.24H PO SCH (08:16)
[2019-09-04] MEDS: MULTIVITAMIN with MINERAL TABLET. PO SCH (08:17)
[2019-09-04] MEDS: LACTOBACILLUS RHAMNOSUS GG 1 CAPSULE. PO SCH ×2 (08:17→20:06)
[2019-09-04] MEDS: CHOLECALCIFEROL (VITAMIN D3) 1,000 UNIT TABLET PO SCH (08:17)
[2019-09-04 16:19] VITALS: BP 100/74
[2019-09-04] MEDS: traZODone 150 MG TABLET. PO SCH (20:06)
[2019-09-04] MEDS: DIVALPROEX ER 500 MG TAB.ER.24H PO SCH (20:06)
[2019-09-04] MEDS: cloZAPine 100 MG TABLET PO SCH (20:06)
[2019-09-04] MEDS: CALCIUM CARBONATE 500 MG TABLET PO SCH (20:06)
[2019-09-04] MEDS: MIRTAZAPINE 7.5 MG TABLET. PO SCH (20:06)
--- NOTE | 2019-09-04 20:35 | PDOC ---
Exam Note: Sami Note: Please also refer to the separate dictated note~for this date of service dictated separately.~Patient seen individually. Discussed the patient with Nursing staff reviewed the chart.~Reviewed interim history and current functioning. Reviewed vital signs,~Labs/ Radiology~and current medications noted below. Continue current treatment with the changes noted in the dictated addendum note Assessment: Vital Signs/I&O: Vital Signs Date Time Temp Pulse Resp B/P (MAP) Pulse Ox O2 Delivery O2 Flow Rate FiO2 09/04/19 16:19 97.8 89 18 100/74 (83) 99 Room Air I & O 09/03/19 09/03/19 09/04/19 15:00 23:00 07:00 Intake Total 480 ml Balance 480 ml Current Medications: Meds: Current Medications Medications (Trade) Dose Ordered Sig/Lynn Route PRN Reason Start Time Stop Time Status Last Admin Dose Admin Lactobacillus Rhamnosus (Culturelle) 1 cap BID PO 09/03/19 21:00 09/04/19 20:06 I have reviewed the current psychotropics carefully including drug interactions. Risk benefit ratio favors no change other than as noted in my dictated progress note. Diagnosis: Problems: (1) Mild cognitive impairment (2) Anxiety disorder (3) Impulse control disorder (4) Schizoaffective disorder, chronic condition with acute exacerbation (5) Psychosis, atypical (6) Seizure disorder MARIALUISA SHELL MD Sep 04, 2019 20:34
--- NOTE | 2019-09-05 02:58 | PN ---
DATE: 09/03/2019 PSYCHIATRIC PROGRESS NOTE This late entry 09/03/2019 covers elements not covered in my initial note. SUBJECTIVE: I met with the patient in the evening and staffed at treatment team meeting with the entire team in the morning. The patient is sleeping 6 hours, appetite 50%, compliant with medications. She does have a UTI, being treated on antibiotics. REVIEW OF SYSTEMS: Positive for tiredness, impaired ambulation, with walker. No CV, , pulmonary, eye system symptoms on review. MENTAL STATUS EXAM: Oriented to herself, situation. Speech has some latency, coherent. Abstraction fair, computation impaired, language function intact. Mood and affect withdrawn. LABORATORY DATA: Reviewed. IMPRESSION: Unchanged from initial note. PLAN: No change from initial note. MAN aMrek SHELL MD DR: JESSEE/umer JOB#: [id number] / [id number]
[2019-09-05 05:58] VITALS: BP 130/78
[2019-09-05] MEDS: MIRABEGRON 25 MG TAB.ER.24H PO SCH (08:46)
[2019-09-05] MEDS: LACTULOSE 20 GM/30 ML SOLUTION. PO SCH (08:46)
[2019-09-05] MEDS: CEFDINIR 300 MG CAPSULE PO SCH ×2 (08:46→20:01)
[2019-09-05] MEDS: LACTOBACILLUS RHAMNOSUS GG 1 CAPSULE. PO SCH ×2 (08:46→20:01)
[2019-09-05] MEDS: CHOLECALCIFEROL (VITAMIN D3) 1,000 UNIT TABLET PO SCH (08:47)
[2019-09-05] MEDS: MULTIVITAMIN with MINERAL TABLET. PO SCH (08:47)
[2019-09-05] MEDS: NICOTINE 21MG PATCH. TD SCH (08:47)
[2019-09-05 15:57] VITALS: BP 93/69
[2019-09-05] MEDS: cloZAPine 100 MG TABLET PO SCH (20:01)
[2019-09-05] MEDS: traZODone 150 MG TABLET. PO SCH (20:01)
[2019-09-05] MEDS: DIVALPROEX ER 500 MG TAB.ER.24H PO SCH (20:01)
[2019-09-05] MEDS: CALCIUM CARBONATE 500 MG TABLET PO SCH (20:01)
[2019-09-05] MEDS: MIRTAZAPINE 7.5 MG TABLET. PO SCH (20:01)
--- NOTE | 2019-09-05 20:39 | PDOC ---
Exam Note: Sami Note: Please also refer to the separate dictated note~for this date of service dictated separately.~Patient seen individually. Discussed the patient with Nursing staff reviewed the chart.~Reviewed interim history and current functioning. Reviewed vital signs,~Labs/ Radiology~and current medications noted below. Continue current treatment with the changes noted in the dictated addendum note Assessment: Vital Signs/I&O: Vital Signs Date Time Temp Pulse Resp B/P (MAP) Pulse Ox O2 Delivery O2 Flow Rate FiO2 09/05/19 15:57 98.5 88 14 93/69 (77) 97 09/05/19 05:58 Room Air I & O 09/04/19 09/04/19 09/05/19 15:00 23:00 07:00 Intake Total 960 ml 120 ml Balance 960 ml 120 ml Current Medications: I have reviewed the current psychotropics carefully including drug interactions. Risk benefit ratio favors no change other than as noted in my dictated progress note. Diagnosis: Problems: (1) Mild cognitive impairment (2) Anxiety disorder (3) Impulse control disorder (4) Schizoaffective disorder, chronic condition with acute exacerbation (5) Psychosis, atypical (6) Seizure disorder MARIALUISA SHELL MD Sep 05, 2019 20:39
[2019-09-05] MEDS: traZODone 150 MG TABLET. PO PRN (23:42)
[2019-09-05] MEDS: ACETAMINOPHEN 325 MG TABLET PO PRN (23:47)
[2019-09-06 05:47] VITALS: BP 111/73
[2019-09-06] MEDS: LACTOBACILLUS RHAMNOSUS GG 1 CAPSULE. PO SCH ×2 (08:42→20:12)
[2019-09-06] MEDS: CEFDINIR 300 MG CAPSULE PO SCH ×2 (08:42→20:12)
[2019-09-06] MEDS: LACTULOSE 20 GM/30 ML SOLUTION. PO SCH (08:42)
[2019-09-06] MEDS: MIRABEGRON 25 MG TAB.ER.24H PO SCH (08:42)
[2019-09-06] MEDS: NICOTINE 21MG PATCH. TD SCH (08:43)
[2019-09-06] MEDS: MULTIVITAMIN with MINERAL TABLET. PO SCH (08:43)
[2019-09-06] MEDS: CHOLECALCIFEROL (VITAMIN D3) 1,000 UNIT TABLET PO SCH (08:43)
[2019-09-06 15:37] VITALS: BP 112/77
[2019-09-06] MEDS: ACETAMINOPHEN 325 MG TABLET PO PRN (15:42)
--- NOTE | 2019-09-06 19:56 | PDOC ---
Exam Note: Sami Note: Please also refer to the separate dictated note~for this date of service dictated separately.~Patient seen individually. Discussed the patient with Nursing staff reviewed the chart.~Reviewed interim history and current functioning. Reviewed vital signs,~Labs/ Radiology~and current medications noted below. Continue current treatment with the changes noted in the dictated addendum note Assessment: Vital Signs/I&O: Vital Signs Date Time Temp Pulse Resp B/P (MAP) Pulse Ox O2 Delivery O2 Flow Rate FiO2 09/06/19 15:37 97.5 93 18 112/77 (89) 96 09/05/19 05:58 Room Air I & O 09/05/19 09/05/19 09/06/19 15:00 23:00 07:00 Intake Total 840 ml 660 ml Balance 840 ml 660 ml Current Medications: I have reviewed the current psychotropics carefully including drug interactions. Risk benefit ratio favors no change other than as noted in my dictated progress note. Diagnosis: Problems: (1) Mild cognitive impairment (2) Anxiety disorder (3) Impulse control disorder (4) Schizoaffective disorder, chronic condition with acute exacerbation (5) Psychosis, atypical (6) Seizure disorder MARIALUISA SHELL MD Sep 06, 2019 19:56
[2019-09-06] MEDS: DIVALPROEX ER 500 MG TAB.ER.24H PO SCH (20:12)
[2019-09-06] MEDS: cloZAPine 100 MG TABLET PO SCH (20:12)
[2019-09-06] MEDS: CALCIUM CARBONATE 500 MG TABLET PO SCH (20:12)
[2019-09-06] MEDS: traZODone 150 MG TABLET. PO SCH (20:12)
[2019-09-06] MEDS: MIRTAZAPINE 7.5 MG TABLET. PO SCH (20:12)
--- NOTE | 2019-09-06 21:16 | PN ---
DATE: 09/04/2019 PSYCHIATRIC PROGRESS NOTE This late entry, 09/04/2019, covers the elements not covered in my initial note. SUBJECTIVE: I met with the patient in the evening. Per RAND Munoz, the patient slept 8 hours previous night. She has been withdrawn, spends much time in a room, obsessing about wanting to go back to the half-way as I met with her. She has been joking a little bit more, which is an improvement. No GI complaints. REVIEW OF SYSTEMS: No CV, , pulmonary, or eye system symptoms on review. MENTAL STATUS EXAM: Oriented to herself and situation. Speech has some latency, coherent. Abstraction fair. Speech is low in volume. Insight limited, judgment marginal, and language function intact. No suicidal or homicidal ideation. LABORATORY DATA: Reviewed. IMPRESSION: Unchanged from initial note. PLAN: No change from initial note. MAN Marek SHELL MD DR: JESSEE/umer JOB#: [id number] / [id number]
[2019-09-07 06:06] VITALS: BP 134/97
[2019-09-07 07:26] LABS: BASO % 1 % (0-3); EOS # 0.2 x10^3/uL (0.0-0.7); EOS % 3 % (0-3); HEMATOCRIT 37.7 % (36.0-47.0); HEMOGLOBIN 12.5 g/dL (12.0-15.5); LYMPH # 1.8 x10^3/uL (1.0-4.8); LYMPH % 26 % (24-48); MEAN CORPUSCULAR HEMOGLOBIN 33 pg (25-35); MEAN CORPUSCULAR HGB CONC 33 g/dL (31-37); MEAN CORPUSCULAR VOLUME 98 fL (79-100); MONO # 0.5 x10^3/uL (0.0-1.1); MONO % 8 % (0-9); NEUT # 4.4 x10^3uL (1.8-7.7); NEUT % 63 % (31-73); PLATELET COUNT 143 x10^3/uL (140-400); RED BLOOD COUNT 3.83 x10^6/uL (3.50-5.40); RED CELL DISTRIBUTION WIDTH 14.9 % (11.5-14.5)
[2019-09-07 07:37] LABS: ALBUMIN 3.1 g/dL (3.4-5.0); ALBUMIN/GLOBULIN RATIO 0.7 (1.0-1.7); CALCIUM 9.1 mg/dL (8.5-10.1); CREATININE 0.9 mg/dL (0.6-1.0); GFR 76.8; POTASSIUM 4.2 mmol/L (3.5-5.1); TOTAL BILIRUBIN 0.4 mg/dL (0.2-1.0); TOTAL PROTEIN 7.3 g/dL (6.4-8.2)
[2019-09-07] MEDS: NICOTINE 21MG PATCH. TD SCH (08:32)
[2019-09-07] MEDS: LACTULOSE 20 GM/30 ML SOLUTION. PO SCH (08:32)
[2019-09-07] MEDS: LACTOBACILLUS RHAMNOSUS GG 1 CAPSULE. PO SCH ×2 (08:32→19:56)
[2019-09-07] MEDS: CHOLECALCIFEROL (VITAMIN D3) 1,000 UNIT TABLET PO SCH (08:33)
[2019-09-07] MEDS: MULTIVITAMIN with MINERAL TABLET. PO SCH (08:33)
[2019-09-07] MEDS: MIRABEGRON 25 MG TAB.ER.24H PO SCH (08:33)
[2019-09-07] MEDS: CEFDINIR 300 MG CAPSULE PO SCH ×2 (08:33→19:56)
[2019-09-07 15:52] VITALS: BP 109/74
--- NOTE | 2019-09-07 16:05 | PN ---
DATE: 09/05/2019 This late entry 09/05 covers elements not covered in my initial note. SUBJECTIVE: I met with the patient in the evening. The patient slept 8-1/2 hours previous night. She remains somewhat withdrawn, less paranoid, still believes people are stealing from her, however. REVIEW OF SYSTEMS: Positive for some tiredness. No CV, , pulmonary, eye, ENT system symptoms on review. MENTAL STATUS EXAM: Oriented to herself and situation. Speech has some latency, often responses monosyllabic. Abstraction fair, computation impaired, language function intact. Mood and affect withdrawn. LABORATORY DATA: Reviewed. IMPRESSION: Unchanged from initial note. PLAN: No change from initial note. MAN Marek SHELL MD DR: JESSEE/umer JOB#: [id number] / [id number]
--- NOTE | 2019-09-07 16:22 | PN ---
DATE: 09/06/2019 This late entry, 09/06/2019, covers the elements not covered in my initial note. SUBJECTIVE: I met with the patient in the evening. The patient slept 6-3/4 hours previous night. She has been somewhat withdrawn. Previous evening, she was naked in bed staff, staff redirected her. Complained of insomnia. Trazodone was repeated. She had received Tylenol. Previous night, she said she was depressed and during the day on 09/06/2019, little more interactive as I met with her in the evening. REVIEW OF SYSTEMS: Ambulation impaired. No CV, , pulmonary, eye, or ENT system symptoms on review. MENTAL STATUS EXAM: Oriented to herself and situation. Speech has some latency, often responses monosyllabic, coherent. Abstraction fair, computation impaired, language function intact, and attention span short. Mood and affect withdrawn. LABORATORY DATA: Reviewed. IMPRESSION: Unchanged from initial note. PLAN: No change from initial note. MARIALUISA SHELL MD DR: JESSEE/umer JOB#: [id number] / [id number]
--- NOTE | 2019-09-07 19:50 | PDOC ---
Exam Note: Sami Note: Please also refer to the separate dictated note~for this date of service dictated separately.~Patient seen individually. Discussed the patient with Nursing staff reviewed the chart.~Reviewed interim history and current functioning. Reviewed vital signs,~Labs/ Radiology~and current medications noted below. Continue current treatment with the changes noted in the dictated addendum note Assessment: Vital Signs/I&O: Vital Signs Date Time Temp Pulse Resp B/P (MAP) Pulse Ox O2 Delivery O2 Flow Rate FiO2 09/07/19 15:52 97.1 100 18 109/74 (86) 99 09/07/19 06:06 Room Air I & O 09/06/19 09/06/19 09/07/19 14:59 22:59 06:59 Intake Total 540 ml 240 ml 480 ml Balance 540 ml 240 ml 480 ml Labs: Laboratory Tests Test 09/07/19 06:57 White Blood Count 7.0 x10^3/uL (4.0-11.0) Red Blood Count 3.83 x10^6/uL (3.50-5.40) Hemoglobin 12.5 g/dL (12.0-15.5) Hematocrit 37.7 % (36.0-47.0) Mean Corpuscular Volume 98 fL (79-100) Mean Corpuscular Hemoglobin 33 pg (25-35) Mean Corpuscular Hemoglobin Concent 33 g/dL (31-37) Red Cell Distribution Width 14.9 % (11.5-14.5) H Platelet Count 143 x10^3/uL (140-400) Neutrophils (%) (Auto) 63 % (31-73) Lymphocytes (%) (Auto) 26 % (24-48) Monocytes (%) (Auto) 8 % (0-9) Eosinophils (%) (Auto) 3 % (0-3) Basophils (%) (Auto) 1 % (0-3) Neutrophils # (Auto) 4.4 x10^3uL (1.8-7.7) Lymphocytes # (Auto) 1.8 x10^3/uL (1.0-4.8) Monocytes # (Auto) 0.5 x10^3/uL (0.0-1.1) Eosinophils # (Auto) 0.2 x10^3/uL (0.0-0.7) Basophils # (Auto) 0.0 x10^3/uL (0.0-0.2) Sodium Level 141 mmol/L (136-145) Potassium Level 4.2 mmol/L (3.5-5.1) Chloride Level 106 mmol/L (98-107) Carbon Dioxide Level 25 mmol/L (21-32) Anion Gap 10 (6-14) Blood Urea Nitrogen 16 mg/dL (7-20) Creatinine 0.9 mg/dL (0.6-1.0) Estimated GFR (Cockcroft-Gault) 76.8 BUN/Creatinine Ratio 18 (6-20) Glucose Level 81 mg/dL (70-99) Calcium Level 9.1 mg/dL (8.5-10.1) Total Bilirubin 0.4 mg/dL (0.2-1.0) Aspartate Amino Transferase (AST) 32 U/L (15-37) Alanine Aminotransferase (ALT) 34 U/L (14-59) Alkaline Phosphatase 112 U/L (46-116) Total Protein 7.3 g/dL (6.4-8.2) Albumin 3.1 g/dL (3.4-5.0) L Albumin/Globulin Ratio 0.7 (1.0-1.7) L Current Medications: I have reviewed the current psychotropics carefully including drug interactions. Risk benefit ratio favors no change other than as noted in my dictated progress note. Diagnosis: Problems: (1) Mild cognitive impairment (2) Anxiety disorder (3) Impulse control disorder (4) Schizoaffective disorder, chronic condition with acute exacerbation (5) Psychosis, atypical (6) Seizure disorder MARIALUISA SHELL MD Sep 07, 2019 19:50
[2019-09-07] MEDS: CALCIUM CARBONATE 500 MG TABLET PO SCH (19:56)
[2019-09-07] MEDS: traZODone 150 MG TABLET. PO SCH (19:56)
[2019-09-07] MEDS: DIVALPROEX ER 500 MG TAB.ER.24H PO SCH (19:56)
[2019-09-07] MEDS: MIRTAZAPINE 7.5 MG TABLET. PO SCH (19:56)
[2019-09-07] MEDS ORDERED: CEFD300C PO (20:52)
[2019-09-07] MEDS ORDERED: CLOZ25TA PO (20:58)
[2019-09-07] MEDS ORDERED: cloZAPine 100 MG TABLET PO SCH (21:00)
[2019-09-07] MEDS ORDERED: cloZAPine 25 MG TABLET PO SCH (21:00)
[2019-09-07] MEDS ORDERED: CALC500T31 PO (21:14)
[2019-09-07] MEDS ORDERED: LACT1CAP21 PO (21:15)
[2019-09-07] MEDS ORDERED: MAG30ORA2 PO (21:17)
[2019-09-07] MEDS ORDERED: MAGN2400 PO (21:17)
[2019-09-07] MEDS ORDERED: METH28OI2 TP (21:19)
[2019-09-07] MEDS ORDERED: TRAZ150T49 PO ×2 (21:20→21:21)
[2019-09-07] MEDS ORDERED: NICO1PAT21 TD (21:20)
[2019-09-07] MEDS: traZODone 150 MG TABLET. PO PRN (22:54)
[2019-09-08 06:17] VITALS: BP 101/68
[2019-09-08] MEDS: CHOLECALCIFEROL (VITAMIN D3) 1,000 UNIT TABLET PO SCH (07:51)
[2019-09-08] MEDS: LACTULOSE 20 GM/30 ML SOLUTION. PO SCH (07:51)
[2019-09-08] MEDS: MIRABEGRON 25 MG TAB.ER.24H PO SCH (07:52)
[2019-09-08] MEDS: MULTIVITAMIN with MINERAL TABLET. PO SCH (07:52)
[2019-09-08] MEDS: NICOTINE 21MG PATCH. TD SCH (07:52)
[2019-09-08] MEDS: CEFDINIR 300 MG CAPSULE PO SCH (07:52)
[2019-09-08] MEDS: LACTOBACILLUS RHAMNOSUS GG 1 CAPSULE. PO SCH (07:52)
--- NOTE | 2019-09-08 19:48 | PDOC ---
Exam Note: Sami Note: Please also refer to the separate dictated note~for this date of service dictated separately.~Patient seen individually. Discussed the patient with Nursing staff reviewed the chart.~Reviewed interim history and current functioning. Reviewed vital signs,~Labs/ Radiology~and current medications noted below. Continue current treatment with the changes noted in the dictated addendum note Assessment: Vital Signs/I&O: Vital Signs Date Time Temp Pulse Resp B/P (MAP) Pulse Ox O2 Delivery O2 Flow Rate FiO2 09/08/19 06:17 96.9 89 18 101/68 (79) 93 09/07/19 06:06 Room Air I & O 09/07/19 09/07/19 09/08/19 15:00 23:00 07:00 Intake Total 840 ml 240 ml 360 ml Balance 840 ml 240 ml 360 ml Current Medications: Meds: Current Medications Medications (Trade) Dose Ordered Sig/Lynn Route PRN Reason Start Time Stop Time Status Last Admin Dose Admin Clozapine (Clozaril) 400 mg HS PO 09/07/19 21:00 09/08/19 12:26 DC 09/07/19 19:56 Clozapine (Clozaril) 25 mg QHS PO 09/07/19 21:00 09/08/19 12:26 DC 09/07/19 19:55 I have reviewed the current psychotropics carefully including drug interactions. Risk benefit ratio favors no change other than as noted in my dictated progress note. Diagnosis: Problems: (1) Mild cognitive impairment (2) Anxiety disorder (3) Impulse control disorder (4) Schizoaffective disorder, chronic condition with acute exacerbation (5) Psychosis, atypical (6) Seizure disorder MARIALUISA SHELL MD Sep 08, 2019 19:48
--- NOTE | 2019-09-08 22:39 | DS ---
DATE OF DISCHARGE: 09/08/2019 REASON FOR ADMISSION: Please refer to the admission history for details. Briefly, the patient is a 64-year-old Afro-[place] female referred to us from [facility], referred by her primary care physician on account of making threats to hurt herself and saying "I am going to kill myself." She was carrying her purse around, paranoid, thinking people are stealing from her. She was increasingly psychotic, unmanageable at the facility, had failed outpatient psychiatric interventions resulting in this referral. SIGNIFICANT FINDINGS AND CLINICAL COURSE: Following admission, the patient was seen daily individually by myself from a psychiatric standpoint, medical followup per Dr. Morley. The patient was quite withdrawn, paranoid, suspicious, spending long periods of time in a bed. She was quite obsessive, ruminative. Adjustments were made in her psychotropic. She seemed to respond to a combination of Luvox 75 mg a day, Remeron 7.5 mg at bedtime, Depakote ER 500 mg at bedtime, level therapeutic at 62 and Clozaril was increased gradually to 425 mg at bedtime with weekly CBC, ANC remaining unremarkable. REVIEW OF SYSTEMS: Prior to discharge on 09/08/2019, no CV, , pulmonary, eye system symptoms on review. MENTAL STATUS EXAM: Reasonably oriented. Speech has some latency, coherent. Abstraction fair, computation impaired, language function intact. Mood and affect improved, less paranoid. LABORATORY DATA: Reviewed. IMPRESSION: Unchanged from initial note. FINAL DIAGNOSES: Schizoaffective disorder, bipolar type, mixed with psychotic features; anxiety disorder, unspecified; impulse control disorder, unspecified. Rest unchanged from admission. DISCHARGE MEDICATIONS: Please refer to the MRAD. DISCHARGE INSTRUCTIONS: Outpatient psychiatric and medical followup at the intermediate. MAN Marek SHELL MD DR: JESSEE/umer JOB#: [id number] / [id number]
--- NOTE | 2019-09-08 23:35 | PN ---
DATE: 09/07/2019 PSYCHIATRIC PROGRESS NOTE This late entry 09/07/2019 covers elements not covered in my initial note. SUBJECTIVE: I met with the patient in the evening. Per Luna RN, the patient slept 7-1/2 hours previous night. She is much less paranoid, but still believes people are stealing from her at times. ANC is unremarkable and we will increase the Clozaril from 400 mg at bedtime to 425 mg at bedtime. REVIEW OF SYSTEMS: No CV, , pulmonary, eye system symptoms on review. MENTAL STATUS EXAM: Oriented to herself and situation. Speech has some latency, coherent. Abstraction fair, computation impaired, language function intact, attention span short. Mood and affect less withdrawn. LABORATORY DATA: Reviewed. IMPRESSION: Unchanged from initial note. PLAN: No change from initial note. MAN Marek SHELL MD DR: JESSEE/umer JOB#: [id number] / [id number]
== END 2019-09-08 11:55 | DRG 885 ==
LOC: ER 16:54 → GEROPSY 20:41
PROVIDERS: ADMIT Psychiatry & Neurology Psychiatry; ATTEND Psychiatry & Neurology Psychiatry
DX: F25.0 Schizoaffective disorder, bipolar type (principal); N39.0 Urinary tract infection, site not specified; R45.851 Suicidal ideations; F41.9 Anxiety disorder, unspecified; F63.9 Impulse disorder, unspecified; N18.3 Chronic kidney disease, stage 3 (moderate); N32.81 Overactive bladder; D69.6 Thrombocytopenia, unspecified; F03.90 Unspecified dementia, unspecified severity, without behavioral disturbance, psychotic disturbance, mood disturbance, and anxiety; K21.9 Gastro-esophageal reflux disease without esophagitis; F42.9 Obsessive-compulsive disorder, unspecified; G40.909 Epilepsy, unspecified, not intractable, without status epilepticus; G47.00 Insomnia, unspecified; G89.29 Other chronic pain; I12.9 Hypertensive chronic kidney disease with stage 1 through stage 4 chronic kidney disease, or unspecified chronic kidney disease; K59.09 Other constipation; Z79.899 Other long term (current) drug therapy; Z87.891 Personal history of nicotine dependence; Z91.410 Personal history of adult physical and sexual abuse; Z88.8 Allergy status to other drugs, medicaments and biological substances
CPT/HCPCS: 36415; 74018; 80053; 80061; 80164; 81001; 82306; 82607; 83036; 83540; 83550; 83735; 84436; 84443; 84480; 85025; 86021; 86592; 87086; 87186; 99407; 99285-25